=== PATIENT | female | born 1970 | race Caucasian/White ===

== ENCOUNTER 2016-10-30 10:18 | Emergency (ER) | payer BC, OTHER ==
[~2016-10-30] VITALS: Ht 162.6 cm; Wt 59.0 kg
[~2016-10-30 10:18] MED LIST: BCP; CLIN-62 PO; CPR500T PO; CYCL10TA9 PO; HYDR-3812 PO; HYDR1CAP2 PO; HYDR1TAB PO; IBUP-792 PO; LEVO500T69 PO; LVT.088T PO; NAPR-243 PO; NF-NOR777T; NITR-65 PO; OXYC-12 PO; PHEN200T27 PO; PRD20T PO; PRM25T PO; THYROID MED; TRAM-21 PO
--- OUTSIDE RECORDS SUMMARY | 2016-10-30 10:25 | XMS REPORT | Continuity of Care Document ---
Author Author [facility] Organization [facility] Address Unknown Phone Unavailable Care Team Providers Care Wiener Packer Name Role Phone [facility] PCP Insurance Providers Payer Name Policy Number Subscriber Name Relationship Unknown Advance Directives Directive Response Recorded Date/Time Advance Directives No 12/11/14 6:46pm Organ Donor No 12/11/14 6:46pm Resuscitation Status Full Code 12/11/14 6:46pm Problems Medical Problems Problem Onset Date Status Urinary tract infection Unknown Active Medications Medication Dose Route Sig Days/Qty Instructions Order Date Discontinued Date Status Ciprofloxacin 1 Tab PO TWICE A DAY 7 Days 11/10/09 01/22/10 Discontinued Acetaminophen/Hydrocodone Bitart 1 - 2 Each PO Q4HR PRN 20 Qty 01/22/10 Discontinued Promethazine HCl 1 Tab PO EVERY 6 HOURS 20 Qty 11/10/09 07/05/10 Discontinued Oxycodone Hcl/Acetaminophen 1 Each PO EVERY 4HRS 20 Qty 11/11/0907/05 Discontinued [Bcp] 01/22/10 07/05/10 Discontinued [Thyroid Med] 01/22/10 07/05/10 Discontinued Levothyroxine Sodium (Levothroid) 1 Each PO DAILY 07/05/10 Active Estradiol/Norethindr Acetate 07/05/10 12/11/14 Discontinued Clindamycin HCl 2 Each PO GIVE EVERY 6 HR ON SCHEDULE 07/05/1005/15 Discontinued Cyclobenzaprine HCl (Flexeril) 1 Each PO Q8HR PRN 15 Qty FOR MUSCLE SPASMS 05/15/12 12/11/14 Discontinued Naproxen 1 Each PO TID PRN 20 Qty 05/15/12 12/11/14 Discontinued Nitrofurantoin Macrocrystals 1 Each PO TWICE A DAY 20 Qty FOR INFECTION 05/15/12 12/11/14 Discontinued Levofloxacin 1 Each PO DAILY 10 Qty 12/11/14 Active Phenazopyridine HCl 1 Each PO THREE TIMES A DAY PRN BLADDER DISCOMFORT 15 Qty 12/11/14 Active Tramadol Hcl 50 Mg PO EVERY 4HRS 20 Qty 12/11/14 Active Social History Social History Problem Response Recorded Date/Time Alcohol Use Denies Use 12/11/2014 6:46pm Recreational Drug Use No 12/11/2014 6:46pm Recent Foreign Travel No 12/11/2014 6:46pm Recent Infectious Disease Exposure No 12/11/2014 6:46pm Hospitalization with Isolation Denies 12/11/2014 6:46pm Smoking Status Current Everyday Smoker 12/11/2014 6:46pm Query Response Start Date Stop Date Smoking Status Current Everyday Smoker Hospital Discharge Instructions No hospital discharge instructions. Plan of Care No plan of care. Functional Status No functional status results. Allergies, Adverse Reactions, Alerts Allergen Type Severity Reaction Status Last Updated tetracycline ([id number]) Allergy Mild Active 11/11/09 amoxicillin ([id number]) Allergy Unknown PALIPITATIONS Active 12/11/14 meperidine Allergy Mild Active 11/11/09 Immunizations No immunization records. Vital Signs Acute Vital Signs Vital Response Date/Time Temperature (Fahrenheit) 97.4 degrees F (97.6 - 99.5) Temperature (Calculated Celsius) 36.23774 degrees C (36.4 - 37.5) Temperature Source Tympanic Pulse Rate (adult) 87 bpm (60 - 90) Respiratory Rate 20 bpm (12 - 24) O2 Sat by Pulse Oximetry 100 % (88 - 100) Blood Pressure 97/78 mm Hg Pain Pain Intensity 10 Height (Feet) 5 feet Height (Inches) 4 inches Height (Calculated Centimeters) 162.030049 cm Weight (Pounds) 130 pounds Weight (Calculated Kilograms) 58.412590 kilograms Calculated BMI 22.31 Results Laboratory Results Test Name Result Units Flags Reference Collection Date/Time Result Date/ Time Comments Urine Color YELLOW 12/11/2014 6:55pm 12/11/2014 7:11pm Urine Clarity CLOUDY * 12/11/2014 6:55pm 12/11/2014 7:11pm Urine pH 6 5-9 12/11/2014 6:55pm 12/11/2014 7:11pm Urine Specific [place] 1.025 * 1.016-1.022 12/11/2014 6:55pm 2014 7:11pm Urine Protein NEGATIVE NEGATIVE 12/11/2014 6:55pm 12/11/2014 7:11pm Urine Glucose (UA) NEGATIVE NEGATIVE 12/11/2014 6:55pm 12/11/2014 7: 11pm Urine RBC (Auto) 1+ * NEGATIVE 12/11/2014 6:55pm 12/11/2014 7:11pm Urine Ketones NEGATIVE NEGATIVE 12/11/2014 6:55pm 12/11/2014 7:11pm Urine Nitrite POSITIVE * NEGATIVE 12/11/2014 6:55pm 12/11/2014 7:11pm Urine Bilirubin NEGATIVE NEGATIVE 12/11/2014 6:55pm 12/11/2014 7: 11pm Urine Urobilinogen NORMAL MG/DL NORMAL 12/11/2014 6:55pm 12/11/2014 7: 11pm Urine Leukocyte Esterase 2+ * NEGATIVE 12/11/2014 6:55pm 12/11/2014 7: 11pm Urine RBC NONE /HPF 12/11/2014 6:55pm 12/11/2014 7:11pm Urine WBC 5-10 /HPF * 12/11/2014 6:55pm 12/11/2014 7:11pm Urine Bacteria LARGE /HPF * 12/11/2014 6:55pm 12/11/2014 7:11pm Urine Squamous Epithelial Cells 5-10 /HPF 12/11/2014 6:55pm 2014 7:11pm Urine Crystals NONE /LPF 12/11/2014 6:55pm 12/11/2014 7:11pm Urine Casts NONE /LPF 12/11/2014 6:55pm 12/11/2014 7:11pm Urine Mucus NEGATIVE /LPF 12/11/2014 6:55pm 12/11/2014 7:11pm Urine Culture Indicated YES 12/11/2014 6:55pm 12/11/2014 7:11pm Procedures No known history of procedures. Encounters Encounter Location Date/Time Registered Emergency Room [facility] 12/11/14 5:52pm Recent Diagnosis
[2016-10-30] MEDS ORDERED: CHOLESTEROL MED (10:46)
[2016-10-30 11:07] LABS: BASOPHILS % (AUTO) 0 % (0-10); EOSINOPHILS # (AUTO) 0.1 10^3/uL (0.0-0.3); EOSINOPHILS % (AUTO) 1 % (0-10); LYMPHOCYTES # (AUTO) 1.5 X 10^3 (1.0-4.0); LYMPHOCYTES % (AUTO) 16 % (12-44); MEAN CORPUSCULAR HEMOGLOBIN 31 PG (25-34); MEAN CORPUSCULAR HGB CONC 34 G/DL (32-36); MEAN CORPUSCULAR VOLUME 91 FL (80-99); MEAN PLATELET VOLUME 9.7 FL (7.4-10.4); MONOCYTES # (AUTO) 0.7 X 10^3 (0.0-1.0); MONOCYTES % (AUTO) 8 % (0-12); NEUTROPHILS # (AUTO) 7.3 X 10^3 (1.8-7.8); NEUTROPHILS % (AUTO) 76 % (42-75); PLATELET COUNT 192 10^3/uL (130-400); RED BLOOD COUNT 5.07 10^6/uL (4.35-5.85); RED CELL DISTRIBUTION WIDTH 14.1 % (10.0-14.5); WHITE BLOOD COUNT 9.6 10^3/uL (4.3-11.0)
[2016-10-30 11:18] LABS: ALANINE AMINOTRANSFERASE 13 U/L (0-55); ALBUMIN 4.3 G/DL (3.2-4.5); ANION GAP 10 MMOL/L (5-14); ASPARTATE AMINO TRANSFERASE 15 U/L (5-34); BILIRUBIN,TOTAL 0.8 MG/DL (0.1-1.0); BLOOD UREA NITROGEN 15 MG/DL (7-18); BUN/CREATININE RATIO 16; CALCIUM 9.3 MG/DL (8.5-10.1); CARBON DIOXIDE 23 MMOL/L (21-32); CHLORIDE 108 MMOL/L (98-107); CREATININE SERUM 0.91 MG/DL (0.60-1.30); GFR ESTIMATED > 60; GLUCOSE 120 MG/DL (70-105); POTASSIUM 4.2 MMOL/L (3.6-5.0); SODIUM 141 MMOL/L (135-145); TOTAL PROTEIN 7.1 G/DL (6.4-8.2)
[2016-10-30 11:38] LABS: BILIRUBIN,URINE NEGATIVE (NEGATIVE); KETONES,URINE NEGATIVE (NEGATIVE); LEUKOCYTE ESTERASE ,URINE 2+ (NEGATIVE); NITRITE,URINE POSITIVE (NEGATIVE); PH,URINE 6 (5-9); PROTEIN,URINE 2+ (NEGATIVE); UROBILINOGEN,URINE NORMAL (NORMAL)
--- NOTE | 2016-10-30 12:46 | ED GU-Female ---
General Chief Complaint: Abdominal/GI Problems Stated Complaint: LOWER ABD PAIN Nursing Triage Note: C/O LLQ PAIN AT 6 ON NUMERIC SCALE. STATES IT HURTS WORSE WHEN HAVING A BM. FEELS NEED TO HAVE BM MORE OFTEN. DOES NOT C/O BURNING ON URINATION. PAIN STARTED THIS AM. WAS HOT ET COLD, WITH NAUSEA. Nursing Sepsis Screen: No Definite Risk Source: patient Exam Limitations: no limitations History of Present Illness Time seen by provider: 12:44 Initial Comments The patient is a 46-year-old white female who presents today with a complaint of left lower quadrant pain. She reports that she noted the pain when she awakened this morning. It was very sharp and severe. She has had perhaps as many as 10 kidney stones over the years. She stated that this did not seem to be quite like she remembered the stones in that she had a constant pressure sensation. She felt the need to urinate and after doing so then felt as if she were burning on the inside. She reports that the pain is much less at this time. Timing/Duration: this morning Severity/Quality: moderate Location: LLQ Radiation: left flank Associated Symptoms: other (diaphoresis) Allergies and Home Medications Allergies Coded Allergies: meperidine (Unverified Allergy, Mild, 11/11/09) tetracycline (Unverified Allergy, Mild, 11/11/09) amoxicillin (Unverified Allergy, Unknown, PALIPITATIONS, 12/11/14) Home Medications (Reported) Hydrocodone/Acetaminophen 1 Each Tablet #20 1 EACH PO 4 times a day Prescribed by: JENNIFER BABCOCK on 10/30/16 1430 Levothyroxine Sodium 88 Mcg Tablet 1 EACH PO DAILY (Reported) Constitutional: see HPI EENTM: no symptoms reported Cardiovascular: no symptoms reported Gastrointestinal: abdominal pain (LLQ) Genitourinary: see HPI Musculoskeletal: no symptoms reported Skin: no symptoms reported Psychiatric/Neurological: No Symptoms Reported Endocrine: No Symptoms Reported Hematologic/Lymphatic: No Symptoms Reported Past Kvhitea-Oqmshw-Ujoqte Hx Patient Social History Alcohol Use: Denies Use Recreational Drug Use: No Smoking Status: Current Everyday Smoker Recent Foreign Travel: No Contact w/Someone Who Travel: No Recent Infectious Disease Expo: No Recent Hopitalizations: No Physical Abuse Screen: No Sexual Abuse: No Seasonal Allergies Seasonal Allergies: Yes Surgeries HX Surgeries: Yes (KIDNEY STONE REMOVAL, D&C) Surgeries: Adenoidectomy, Renal, Tonsillectomy Respiratory Hx Respiratory Disorders: No Cardiovascular Hx Cardiac Disorders: No Neurological Hx Neurological Disorders: No Reproductive System Hx Reproductive Disorders: No DIRECTOR SOC[employer] WELFARE History: Menopausal Genitourinary Hx Genitourinary Disorders: Yes Genitourinary Disorders: Bladder Infection, Kidney Stones Gastrointestinal Hx Gastrointestinal Disorders: No Musculoskeletal Hx Musculoskeletal Disorders: No Endocrine Hx Endocrine Disorders: Yes Endocrine Disorders: Hypothyroidsim HEENT HX ENT Disorders: No Cancer Hx Cancer: No Psychosocial Hx Psychiatric Problems: No Blood Transfusions Hx Blood Disorders: No Family Medical History Significant Family History: No Pertinent Family Hx Physical Exam Vital Signs Vital Sign - Last 12Hours 10/30/16 10:39 Temp 97.3 Pulse 59 Resp 18 B/P 129/77 O2 Delivery Room Air Capillary Refill : Less Than 3 Seconds General Appearance: mild distress HEENT: normal ENT inspection Neck: full range of motion Cardiovascular: normal peripheral pulses regular rate, rhythm no edema no gallop no JVD no murmur Respiratory: chest non-tender lungs clear normal breath sounds no respiratory distress no accessory muscle use respiratory distress Gastrointestinal: normal bowel sounds non tender soft no organomegaly no pulsatile mass abnormal bowel sounds Back: CVA tenderness (L) Extremities: normal range of motion non-tender normal inspection no pedal edema no calf tenderness normal capillary refill pelvis stable 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 nml as tested no motor/sensory deficits alert normal mood/affect oriented x 3 Skin: normal color warm/dry cyanosis cool diaphoresis pallor Progress/Results/Core Measures Results/Orders Lab Results Laboratory Tests Test 10/30/16 10:55 10/30/16 11:30 Range/Units Alanine Aminotransferase (ALT/SGPT) 13 0-55 U/L Albumin 4.3 3.2-4.5 G/DL Alkaline Phosphatase 103 40-136 U/L Anion Gap 10 5-14 MMOL/L Aspartate Amino Transf (AST/SGOT) 15 5-34 U/L BUN/Creatinine Ratio 16 Basophils # (Auto) 0.0 0.0-0.1 10^3/uL Basophils (%) (Auto) 0 0-10 % Blood Urea Nitrogen 15 7-18 MG/DL Calcium Level 9.3 8.5-10.1 MG/DL Carbon Dioxide Level 23 21-32 MMOL/L Chloride Level 108 H 98-107 MMOL/L Creatinine 0.91 0.60-1.30 MG/DL Eosinophils # (Auto) 0.1 0.0-0.3 10^3/uL Eosinophils (%) (Auto) 1 0-10 % Estimat Glomerular Filtration Rate > 60 Glucose Level 120 H 70-105 MG/DL Hematocrit 46 35-52 % Hemoglobin 15.6 11.5-16.0 G/DL Lymphocytes # (Auto) 1.5 1.0-4.0 X 10^3 Lymphocytes (%) (Auto) 16 12-44 % Mean Corpuscular Hemoglobin 31 25-34 PG Mean Corpuscular Hemoglobin Concent 34 32-36 G/DL Mean Corpuscular Volume 91 80-99 FL Mean Platelet Volume 9.7 7.4-10.4 FL Monocytes # (Auto) 0.7 0.0-1.0 X 10^3 Monocytes (%) (Auto) 8 0-12 % Neutrophils # (Auto) 7.3 1.8-7.8 X 10^3 Neutrophils (%) (Auto) 76 H 42-75 % Platelet Count 192 130-400 10^3/uL Potassium Level 4.2 3.6-5.0 MMOL/L Red Blood Count 5.07 4.35-5.85 10^6/uL Red Cell Distribution Width 14.1 10.0-14.5 % Sodium Level 141 135-145 MMOL/L Total Bilirubin 0.8 0.1-1.0 MG/DL Total Protein 7.1 6.4-8.2 G/DL White Blood Count 9.6 4.3-11.0 10^3/uL Urine Bacteria MODERATE H /HPF Urine Bilirubin NEGATIVE NEGATIVE Urine Casts NONE /LPF Urine Clarity VERY CLOUDY H Urine Color NAHID H Urine Crystals NONE /LPF Urine Culture Indicated YES Urine Glucose (UA) NEGATIVE NEGATIVE Urine Ketones NEGATIVE NEGATIVE Urine Leukocyte Esterase 2+ H NEGATIVE Urine Mucus NEGATIVE /LPF Urine Nitrite POSITIVE H NEGATIVE Urine Protein 2+ H NEGATIVE Urine RBC >100 H /HPF Urine RBC (Auto) 5+ H NEGATIVE Urine Specific [place] 1.020 1.016-1.022 Urine Squamous Epithelial Cells 5-10 /HPF Urine Urobilinogen NORMAL NORMAL MG/DL Urine WBC 2-5 /HPF Urine pH 6 5-9 My Orders Orders-JENNIFER BABCOCK MD Cbc With Automated Diff (10/30/16 10:57) Comprehensive Metabolic Panel (10/30/16 10:57) Ua Culture If Indicated (10/30/16 10:57) Urine Culture (10/30/16 11:30) Ct Abd/Pelvis Wo(Kidney Stone) (10/30/16 12:43) Abdomen/Kub 1view (10/30/16 13:31) Vital Signs/I&O Vital Sign - Last 12Hours 10/30/16 10:39 Temp 97.3 Pulse 59 Resp 18 B/P 129/77 O2 Delivery Room Air Blood Pressure Mean: 94 Departure Communication Progress Notes 1322 CT scan shows 2 distal left ureteral stones at the UV junction Impression Impression: Primary Impression: Ureterolithiasis Disposition: HOME, SELF-CARE Condition: Stable/Unchanged Departure-Patient Inst. Decision time for Depature: 13:20 Referrals: [facility] (PCP/Family) Primary Care Physician Patient Instructions: Kidney Stones in Adults Add. Discharge Instructions: All discharge instructions reviewed with patient and/or family. Voiced understanding. Lots of liquids Strain all urine Hydrocodone for pain See Dr. De Anda in follow-up for stone at 1300 hours on Friday 11/03 Scripts Hydrocodone/Acetaminophen (Lortab 10-325 mg Tablet)1 Each Tablet1 Each PO 4 times a day #20 TAB Prov:JENNIFER BABCOCK MD 10/30/16 JENNIFER BABCOCK MD Oct 30, 2016 12:46
--- NOTE | 2016-10-30 13:19 | Diagnostic Imaging Report ---
PROCEDURE: CT urinary tract, rule out kidney stone. TECHNIQUE: Multiple contiguous axial images were obtained through the abdomen and pelvis without the use of intravenous contrast. INDICATION: Hematuria. Left lower quadrant pain. Rule out stones. FINDINGS: The lung bases demonstrate scattered calcified granulomas. The liver, the gallbladder, the spleen, the adrenals, and the pancreas appear unremarkable for an unenhanced exam. The kidneys demonstrate no hydronephrosis. There is minimal dilatation of the left ureter and surrounding stranding seen. There are two adjacent stones at the distal aspect of the ureter near the UVJ up to 4 mm in size. There is no bladder or left ureteric stone. The abdominal aorta is normal in caliber. No para-aortic significantly enlarged lymph node is seen. There is no bowel obstruction. There is no significant free fluid or fluid collection in the abdomen or pelvis. The uterus appears unremarkable. The osseous structures appear grossly unremarkable. IMPRESSION: There are two stones up to 4 mm in size at the distal left ureter just proximal to the UVJ. There is only minimal dilatation of the left ureter with no hydronephrosis. Dictated by: Dictated on workstation # [id number]
--- NOTE | 2016-10-30 13:51 | Diagnostic Imaging Report ---
INDICATION: Left-sided abdominal pain, hematuria since this morning. History of kidney stones. FINDINGS: Supine view of the abdomen and pelvis demonstrates no visible renal calculi. There is normal bowel gas pattern. Osseous structures appear normal. IMPRESSION: Negative KUB. Dictated by: Dictated on workstation # [id number]
[2016-10-30] MEDS ORDERED: HYDR-3731 PO (14:30)
[2016-10-30 14:37] VITALS: BP 133/102
== END 2016-10-30 14:37 | disposition home or self-care (01) ==
LOC: EDUNIT# 10:18 → ER 10:20
DX: N20.1 Calculus of ureter (principal); F17.210 Nicotine dependence, cigarettes, uncomplicated
CPT/HCPCS: 36415; 74000; 74176; 80053; 81000; 85025; 87088; 87186

== ENCOUNTER → 2017-06-16 | Outpatient (CLI) | payer OTHER ==
[~2017-06-16] MED LIST changes: +CHOLESTEROL MED; +HYDR-3731 PO
--- NOTE | 2017-06-18 08:15 | Diagnostic Imaging Report ---
INDICATION: Digital mammogram bilateral screening. This study was compared to prior exams of 03/17/13 and 02/06/12. At this time, there are no current complaints. The current study was also evaluated with a Computer Aided Detection (CAD) system. FINDINGS: The fibroglandular tissue in both breasts is dense. This does limit the sensitivity of this exam. Overall, there does not appear to have been any significant change when compared to the prior study. No primary or secondary sign of malignancy is noted. IMPRESSION: 1. There is no radiographic evidence for malignancy. 2. The patient should have her annual bilateral screening mammogram on schedule in June of 2018. ACR BI-RADS Category 1: Negative. Result letter will be mailed to the patient. Note: At least 10% of breast cancer is not imaged by mammography. Dictated by: Dictated on workstation # [id number]
== END ==
LOC: RAD 13:12
PROVIDERS: ATTEND Nurse Practitioner Family
DX: Z12.31 Encounter for screening mammogram for malignant neoplasm of breast (principal)
CPT/HCPCS: 77067

== ENCOUNTER 2019-02-11 13:44 | Emergency (ER) | payer SELFPAY ==
[~2019-02-11] VITALS: Ht 162.6 cm; Wt 62.1 kg
[~2019-02-11 13:44] MED LIST changes: +ACHD5005 PO; -HYDR-3812 PO
--- OUTSIDE RECORDS SUMMARY | 2019-02-11 13:50 | XMS REPORT ---
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 Name Role Phone Migration, Doctor Unavailable Unavailable PROBLEMS Type Condition ICD9-CM Code [id number] Code Onset Dates Condition Status SNOMED Code Problem Cigarette nicotine dependence without complication F17.210 Active 97355996 Problem Allergic rhinitis, unspecified seasonality, unspecified trigger J30.9 Active 40191374 Problem Acquired hypothyroidism E03.9 Active 262032297 Problem Hyperlipidemia, unspecified hyperlipidemia type E78.5 Active 94223609 ALLERGIES No Information ENCOUNTERS Encounter Location Date Diagnosis [place] [address] [address] Dec, Acquired hypothyroidism E03.9 [place] [address] [address] Dec, Acquired hypothyroidism E03.9 and Hyperlipidemia, unspecified hyperlipidemia type E78.5 [facility] [address] [address] Sep, Acquired hypothyroidism E03.9 [facility] [address] [address] Sep, Acquired hypothyroidism E03.9 [facility] [address] [address] Sep, Viral upper respiratory tract infection J06.9 and Allergic rhinitis, unspecified seasonality, unspecified trigger J30.9 [facility] [address] [address] Sep, [facility] [address] [address] Aug, Acute frontal sinusitis, recurrence not specified J01.10 [place] [address] [address] Jul, [facility] [address] [place] [id number] [place] [address] Jul, Acute cystitis without hematuria N30.00 and Burning with urination R30.0 [facility] [id number] [place] [address]- [address] Jun, Acquired hypothyroidism E03.9 and Hyperlipidemia, unspecified hyperlipidemia type E78.5 [facility] [address] [place] [id number] [place] [address]76- 2405 Jun, Acquired hypothyroidism E03.9 ; Hyperlipidemia, unspecified hyperlipidemia type E78.5 and Cigarette nicotine dependence without complication F17.210 [facility] [address] [place] [id number] [place] [address]- 1088 Jun, Acquired hypothyroidism E03.9 [facility] [address] [place] [id number] [place] [address]- [address] February, Acquired hypothyroidism E03.9 [facility] [address] [place] [id number] [place] [address]- 9890 Nov, Acquired hypothyroidism E03.9 [facility] [address] [place] [id number] [place] [address]- 228[address] 14 Aug, 2017 Acute non-recurrent frontal sinusitis J01.10 [facility] [address] [place] [id number] [place] [address] 25634- 7[address] 07 Aug, 2017 [facility] [address] [place] [id number] [place] [address] 36220- 9936 07 Aug, 2017 Acute rhinosinusitis J01.90 [facility] [address] [place] [id number] [place] [address] 22883- 0410 04 Aug, 2017 [facility] [address] [place] [id number] [place] [address] 11875- 1631 Jul, Acquired hypothyroidism E03.9 [facility] [address] [place] [id number] [place] [address] 67[address]- 9[address] Jun, [facility] [id number] [place] [address] 82007- 35[address] May, Screening breast examination Z12.31 ; Skin tag L91.8 and Routine gynecological examination Z01.419 [place] [address] [place] [id number] [place] [address] 25760- 86[address] May, Hyperlipidemia, unspecified hyperlipidemia type E78.5 ; Acquired hypothyroidism E03.9 and Skin tag L91.8 [place] [address] [place] [id number] [place] [address] 6[address]38- 1460 Mar, [place] [address] [address] Mar, [facility] [place] [address] [place] [id number] [place] [address] February, Dysuria R30.0 and Acute cystitis with hematuria N30.01 [place] [address] [place] [id number] [place] [address] 17466- 3541 Oct, [place] [address] [place] [id number] [place] [address] 80035- 9[address] Sep, Hyperlipidemia, unspecified hyperlipidemia type E78.5 [place] [address] [place] [id number] [place] [address] 64004- 2068 Aug, Acquired hypothyroidism E03.9 and General medical exam Z00.00 [place] [address] [place] [id number] [place] [address] 20912- 1361 Aug, [place] [address] [place] [id number] [place] [address] 91153- 6768 Aug, [facility] [address] [place] [id number] [place] [address] Dec, Allergic rhinitis J30.9 [place] [address] [place] [id number] [place] [address] 18647- 978[address] Dec, [place] [address] [place] [id number] [place] [address] [place] [address] Dec, Acute non-recurrent maxillary sinusitis J01.00 [facility] [address] [address] Jul, Other specified hypothyroidism E03.8 [facility] [address] [address] February, [facility] [address] [place] [id number] [place] [address] 35610- 65[address] February, Absence of menstruation 626.0 [facility] [address] [address] Jan, [facility] [address] [place] [id number] [place] [address] 92495- 4483 Jan, [facility] [id number] [place] [address] 16031- 2724 Dec, [facility] [address] [address] Dec, [facility] [address] [address] Aug, [facility] [address] [address] Aug, [facility] [address] [address]- [address] Jul, [facility] [id number] [address] Jul, [facility] [address] [address]- [address] Jun, [facility] [address] [address] Jun, [facility] [address] [address]- [address] Jun, [facility] [id number] [address]- [address] 05 Jun, 2014 [facility] [address] [id number] [place] [address]- 67[address] Jun, [facility] [address] [id number] [place] [address]- 4552 May, [facility] [address] [id number] [place] [address]- 2987 May, [facility] [address] [id number] [place] [address]- 5468 Oct, [facility] [address] [id number] [place] [address]- 2711 Oct, [facility] [address] [id number] [place] [address]- 8490 Oct, [facility] [address] [id number] [place] [address]- 4366 Oct, [facility] [address] [id number] [place] [address]- 4972 Oct, [facility] [address] [id number] [place] [address]- [address] Oct, [facility] [address] [id number] [place] [address]- 7788 Oct, [facility] [place] [facility] [address] [id number] [place] [address]- 5337 Oct, [facility] [address] [id number] [place] [address]- 6308 Oct, [facility] [place] [facility] [address] [id number] [place] [address]- 5554 Oct, [facility] [place] [facility] [address] [id number] [place] [address]- 4203 Oct, [facility] [place] [facility] [address] [id number] [place] [address]- 2410 Oct, [facility] [address] [id number] [place] [address]- 5931 Sep, [facility] [place] [facility] [address] [id number] [place] [address]- 5216 Sep, [facility] [place] [facility] [address] [id number] [place] [address]- 2556 Apr, [facility] [place] [facility] [address] [id number] [place] [address]- 7896 Mar, [facility] [place] [facility] [address] [id number] [place] [address]- 5261 Mar, [facility] [place] [facility] [address] [id number] [place] [address]- 0546 Mar, [facility] [place] [facility] [address] [id number] [place] [address]- 3016 February, [facility] [address] [id number] [place] [address]- 0476 Oct, [facility] [place] [facility] [address] [id number] [place] [address]- 5447 Oct, [facility] [place] [facility] [address] [id number] [place] [address]- 4336 Oct, [facility] [place] [facility] [address] [id number] [place] [address]- 0806 Oct, [facility] [place] [facility] [address] [id number] [address]- 9376 Sep, [facility] [place] [facility] [address] [id number] [place] [address]- 0986 Sep, [facility] [place] [facility] [address] [id number] [place] [address]- 9156 May, [facility] [place] [facility] [address] [id number] [place] [address]- 3526 May, [facility] [place] [facility] [address] [id number] [place] [address]- 8096 May, [facility] [place] [facility] [address] [id number] [place] [address]- 5474 May, [facility] [place] [facility] [address] [id number] [place] [address]- 7742 May, [facility] [place] [facility] [address] [facility] [id number] [place] [address]- 2404 May, [facility] [place] [facility] [address] [id number] [place] [address]- 3421 Apr, [facility] [place] [facility] [address] [id number] [place] [address]- 6379 Apr, [facility] [place] [facility] [address] [facility] [id number] [place] [address]- 2792 Mar, [facility] [place] [facility] [address] [place] [id number] [place] [address]- 1134 Mar, [facility] [place] [facility] [address] [facility] [id number] [place] [address]- 8035 February, [facility] [place] [facility] [address] [place] [id number] [place] [address]- 6903 February, [facility] [place] [facility] [address] [place] [id number] [place] [address]- 8193 Nov, [facility] [place] [facility] [address] [place] [id number] [place] [address]- 3566 Nov, [facility] [place] [facility] [address] [facility] [id number] [place] [address]- 5546 17 Nov, 2011 [facility] [place] [facility] [address] [id number] [place] [address]- 2561 14 Nov, 2011 [facility] [place] [facility] [address] [facility] [id number] [place] [address]- 5491 10 Nov, 2011 [facility] [place] [facility] [address] [place] [id number] [place] [address]- 9222 Jul, [facility] [address] [facility] [id number], [place] [address]- 7634 12 Nov, 2010 [facility] [address], [place] [address]- 2929 15 Sep, 2010 [facility] [address], [place] [address]- 5700 10 Sep, 2010 [facility] [address], [place] [address]- 2665 13 Jul, 2010 [facility] [address], [place] [address]- 1051 16 Dec, 2009 [facility] [address], [place] [address]- 0279 17 Aug, 2009 [facility] [address], [place] [address]- 5325 Aug, [facility] [address], [place] [address]- 9257 Aug, [facility] [address], [place] [address]- 7584 Jul, [facility] [address] [place] [id number], [place] [address]- 0407 14 Apr, 2009 IMMUNIZATIONS No Known Immunizations SOCIAL HISTORY Never Assessed REASON FOR VISIT EMR-[place] PLAN OF CARE VITAL SIGNS MEDICATIONS Unknown Medications RESULTS No Results PROCEDURES No Known procedures INSTRUCTIONS MEDICATIONS ADMINISTERED No Known Medications MEDICAL (GENERAL) HISTORY Type Description Date Medical History Hypothyroidism Dx at [facility] was born without a thyroid Medical History 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
--- OUTSIDE RECORDS SUMMARY | 2019-02-11 13:51 | XMS REPORT ---
Author Author Migration, Doctor Organization [facility] Address Unknown Phone Unavailable Care Team Providers Care Leaf Tier Name Role Phone Migration, Doctor Unavailable Unavailable PROBLEMS Type Condition ICD9-CM Code QBX57-PU Code Onset Dates Condition Status SNOMED Code Problem Cigarette nicotine dependence without complication F17.210 Active 58090274 Problem Allergic rhinitis, unspecified seasonality, unspecified trigger J30.9 Active 97707812 Problem Acquired hypothyroidism E03.9 Active 002214974 Problem Hyperlipidemia, unspecified hyperlipidemia type E78.5 Active 88702940 ALLERGIES No Information ENCOUNTERS Encounter Location Date Diagnosis [place] [address] [address] Sep, Acquired hypothyroidism E03.9 [facility] [address] [address] Sep, Acquired hypothyroidism E03.9 [facility] [address] [address] Sep, Viral upper respiratory tract infection J06.9 and Allergic rhinitis, unspecified seasonality, unspecified trigger J30.9 [facility] [address] [place] [id number] [place] [address] Sep, [facility] [address] [address] Aug, Acute frontal sinusitis, recurrence not specified J01.10 [place] [address] [address] Jul, [place] [address] [address] Jul, Acute cystitis without hematuria N30.00 and Burning with urination R30.0 [facility] [address] [address] Jun, Acquired hypothyroidism E03.9 and Hyperlipidemia, unspecified hyperlipidemia type E78.5 [facility] [address] [place] [id number] [place] [address]- [address] Jun, Acquired hypothyroidism E03.9 ; Hyperlipidemia, unspecified hyperlipidemia type E78.5 and Cigarette nicotine dependence without complication F17.210 [facility] [address] [place] [id number] [place] [address]- [address] Jun, Acquired hypothyroidism E03.9 [facility] [address] [place] [id number] [place] [address]- [address] February, Acquired hypothyroidism E03.9 [facility] [address] [place] [id number] [place] [address]- [address] Nov, Acquired hypothyroidism E03.9 [facility] [address] [place] [id number] [place] [address]- [address] Aug, Acute non-recurrent frontal sinusitis J01.10 [facility] [address] [place] [id number] [place] [address]- [address] Aug, [facility] [address] [address] Aug, Acute rhinosinusitis J01.90 [facility] [address] [place] [id number] [place] [address]- [address] Aug, [facility] [address] [place] [id number] [place] [address]- [address] Jul, Acquired hypothyroidism E03.9 [facility] [address] [place] [id number] [place] [address]- [address]98 Jun, [facility] [address] [place] [id number] [place] [address]- [address] May, Screening breast examination Z12.31 ; Skin tag L91.8 and Routine gynecological examination Z01.419 [facility] [address] [place] [id number] [place] [address] 8[address]- [address] May, Hyperlipidemia, unspecified hyperlipidemia type E78.5 ; Acquired hypothyroidism E03.9 and Skin tag L91.8 [facility] [address] [address] Mar, [facility] [address] [place] [id number] [place] [address]- [address] Mar, [facility] [address] [address] February, Dysuria R30.0 and Acute cystitis with hematuria N30.01 [facility] [address] [address]- [address] Oct, [facility] [address] [address] Sep, Hyperlipidemia, unspecified hyperlipidemia type E78.5 [facility] [address] [address] Aug, Acquired hypothyroidism E03.9 and General medical exam Z00.00 [facility] [address] [address] Aug, [facility] [address] [address]- [address] Aug, [facility] [address] [place] [id number] [place] [address] Dec, Allergic rhinitis J30.9 [facility] [address] [place] [id number] [place] [address] 10051- 2464 Dec, [facility] [address] [place] [id number] [place] [address]2386- [address] 15 Dec, 2015 Acute non-recurrent maxillary sinusitis J01.00 [facility] [address] [place] [id number] [place] [address]67- [address] 08 Jul, 2015 Other specified hypothyroidism E03.8 [facility] [address] [address]- [address]698 February, [facility] [address] [id number] [place] [address] February, Absence of menstruation 626.0 [facility] [place] [facility] [address] [id number] [place] [address] Jan, [facility] [address] [id number] [place] [address] Jan, [facility] [place] [facility] [address] [id number] [place] [address] Dec, [facility] [place] [facility] [address] [id number] [place] [address] Dec, [facility] [place] [facility] [address] [facility] [id number] [place] [address]- 8058 Aug, [facility] [place] [facility] [address] [facility] [id number] [place] [address]- 3123 Aug, [facility] [place] [facility] [address] [facility] [id number] [place] [address]- 1097 Jul, [facility] [place] [facility] [address] [facility] [id number] [place] [address]- 2258 Jul, [facility] [place] [facility] [address] [facility] [id number] [place] [address]- 5194 Jun, [facility] [place] [facility] [address] [facility] [id number] [place] [address]- 9952 Jun, [facility] [place] [facility] [address] [id number] [place] [address]- 7786 08 Jun, 2014 [facility] [place] [facility] [address] [id number] [place] [address] Jun, [facility] [place] [facility] [address] [facility] [id number] [place] [address]- 1892 05 Jun, 2014 [facility] [place] [facility] [address] [facility] [id number] [address] May, [facility] [place] [facility] [address] [id number] [place] [address]- 7964 May, [facility] [address] [id number] [place] [address]- 1067 Oct, [facility] [place] [facility] [address] [id number] [place] [address]- 2866 Oct, [facility] [place] [facility] [address] [id number] [place] [address]- 9160 Oct, [facility] [address] [id number] [place] [address]- 2029 Oct, [facility] [place] [facility] [address] [id number] [place] [address]- 1856 Oct, [facility] [place] [facility] [address] [id number] [place] [address]- 6078 Oct, [facility] [address] [id number] [place] [address]- 5083 Oct, [facility] [place] [facility] [address] [id number] [place] [address]- 2006 Oct, [facility] [place] [facility] [address] [id number] [place] [address]- 2506 Oct, [facility] [place] [facility] [address] [id number] [place] [address]- 8704 Oct, [facility] [place] [facility] [address] [id number] [place] [address]- 4833 Oct, [facility] [place] [facility] [address] [id number] [place] [address]- 0997 Oct, [facility] [place] [facility] [address] [id number] [place] [address]- 4623 Sep, [facility] [place] [facility] [address] [id number] [place] [address]- 8754 13 Sep, 2013 [facility] [place] [facility] [address] [id number] [place] [address]- 9935 Apr, [facility] [place] [facility] [address] [id number] [place] [address]- 4008 Mar, [facility] [place] [facility] [address] [id number] [place] [address]- 8312 Mar, [facility] [place] [facility] [address] [id number] [place] [address]- 1879 Mar, [facility] [place] [facility] [address] [id number] [place] [address]- 8264 February, [facility] [place] [facility] [address] [id number] [place] [address]- 7124 Oct, [facility] [place] [facility] [address] [id number] [place] [address]- 6677 Oct, [facility] [place] [facility] [address] [id number] [place] [address]- 3458 Oct, [facility] [place] [facility] [address] [id number] [place] [address]- 1170 Oct, [facility] [place] [facility] [address] [id number] [place] [address]- 7914 Sep, [facility] [place] [facility] [address] [id number] [place] [address]- 4973 Sep, [facility] [place] [facility] [address] [id number] [place] [address]- 2657 May, [facility] [place] [facility] [address] [id number] [place] [address]- 2022 May, [facility] [place] [facility] [address] [id number] [place] [address]- 1167 May, [facility] [place] [facility] [address] [id number] [place] [address]- 5714 May, [facility] [place] [facility] [address] [id number] [place] [address]- 0401 May, [facility] [place] [facility] [address] [id number] [place] [address]- 5487 May, [facility] [address] [id number] [place] [address]- 8385 Apr, [facility] [place] [facility] [address] [id number] [place] [address]- 5386 Apr, [facility] [address] [id number] [place] [address]- 2759 Mar, [facility] [place] [facility] [address] [id number] [place] [address]- 0083 Mar, [facility] [place] [facility] [id number] [place] [address], [place] [address]- 3476 February, [facility] [place] [facility] [address] [facility] [id number] [place] [address]- 8676 February, [facility] [place] [facility] [id number] [place] [address], [place] [address]- 3567 Nov, [facility] [address] [id number] [place] [address]- 8543 Nov, [facility] [place] [facility] [id number] [address]- 0729 Nov, [facility] [address] [place] [id number] [address]- [address] 14 Nov, 2011 [facility] [place] [facility] [address] [facility] [id number] [place] [address]- 4171 Nov, [facility] [place] [facility] [address] [id number] [place] [address]- 2478 Jul, [facility] [place] [facility] [address] [id number] [place] [address]- 7490 Nov, [facility] [place] [facility] [address] [facility] [id number] [place] [address]- 3186 Sep, [facility] [place] [facility] [address] [id number] [place] [address]- 4859 10 Sep, 2010 [facility] [address] [place] [id number] [address]- 9236 13 Jul, 2010 [facility] [address] [place] [id number] [address]- 2546 16 Dec, 2009 [facility] [address] [place] [id number] [address]- 2546 17 Aug, 2009 [facility] [id number] [address]- 2546 Aug, [facility] [address] [place] [id number] [address] 2541 Aug, [facility] [address] [place] [id number] [address]- 5466 28 Jul, 2009 [facility] [address] [place] [id number] [address]- 2632 Apr, IMMUNIZATIONS No Known Immunizations SOCIAL HISTORY Never Assessed REASON FOR VISIT 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
--- OUTSIDE RECORDS SUMMARY | 2019-02-11 13:51 | XMS REPORT ---
Author Author DIANE RIVERA [facility] Address [address] [place] [address] Care Team Providers Care Online Tutor Name Role Phone DIANE RIVERA Unavailable PROBLEMS Type Condition ICD9-CM Code [id number] Code Onset Dates Condition Status SNOMED Code Problem Allergic rhinitis, unspecified seasonality, unspecified trigger J30.9 Active 86611875 Problem Cigarette nicotine dependence without complication F17.210 Active 95136041 Problem Hyperlipidemia, unspecified hyperlipidemia type E78.5 Active 78003016 Problem Acquired hypothyroidism E03.9 Active [id number] ALLERGIES No Information ENCOUNTERS Encounter Location Date Diagnosis [facility] [place] [address] [address] Sep, Acquired hypothyroidism E03.9 [facility] [place] [address] [address] Sep, Acquired hypothyroidism E03.9 [facility] [id number] [place] [address] Sep, Viral upper respiratory tract infection J06.9 and Allergic rhinitis, unspecified seasonality, unspecified trigger J30.9 [facility] [place] [id number] [place] [address]- [address] Sep, [facility] [place] [address] [address] Aug, Acute frontal sinusitis, recurrence not specified J01.10 [facility] [place] [address] [address] Jul, [facility] [place] [address] [address] Jul, Acute cystitis without hematuria N30.00 and Burning with urination R30.0 [facility] [place] [id number] [place] [address]366- 68[address] 25 Jun, 2018 Acquired hypothyroidism E03.9 and Hyperlipidemia, unspecified hyperlipidemia type E78.5 [facility] [place] [id number] [place] [address]107- 3979 19 Jun, 2018 Acquired hypothyroidism E03.9 ; Hyperlipidemia, unspecified hyperlipidemia type E78.5 and Cigarette nicotine dependence without complication F17.210 [facility] [place] [address] [address] 17 Jun, 2018 Acquired hypothyroidism E03.9 [facility] [place] [address] [address] February, Acquired hypothyroidism E03.9 [facility] [place] [id number] [place] [address]18- 8122 16 Nov, 2017 Acquired hypothyroidism E03.9 [facility] [place] [id number] [place] [address] 8[address]30- 7491 14 Aug, 2017 Acute non-recurrent frontal sinusitis J01.10 [place] [facility] [id number] [place] [address]- 3911 07 Aug, 2017 [facility] [place] [id number] [place] [address] 34188- 1429 07 Aug, 2017 Acute rhinosinusitis J01.90 [facility] [place] [id number] [place] [address] 23004- 9431 04 Aug, 2017 [facility] [place] [id number] [place] [address] 65678- 1869 Jul, Acquired hypothyroidism E03.9 [facility] [place] [id number] [place] [address] 24894- 5251 08 Jun, 2017 [facility] [place] [id number] [place] [address] 6[address]39- 0599 May, Screening breast examination Z12.31 ; Skin tag L91.8 and Routine gynecological examination Z01.419 [facility] [place] [id number] [place] [address]01- 4821 May, Hyperlipidemia, unspecified hyperlipidemia type E78.5 ; Acquired hypothyroidism E03.9 and Skin tag L91.8 [facility] [place] [id number] [place] [address] 98440- 2508 Mar, [facility] [place] [address] [address]- [address] Mar, [facility] [address] [address] February, Dysuria R30.0 and Acute cystitis with hematuria N30.01 [place] [id number] [place] [address] 95779- 5689 Oct, [facility] [place] [id number] [place] [address] 6[address]61- 4422 Sep, Hyperlipidemia, unspecified hyperlipidemia type E78.5 [place] [id number] [place] [address]34- 9681 Aug, Acquired hypothyroidism E03.9 and General medical exam Z00.00 [place] [id number] [place] [address] 97842- 3831 Aug, [facility] [place] [id number] [place] [address]21- 9076 Aug, [facility] [id number] [place] [address] Dec, Allergic rhinitis J30.9 [facility] [place] [id number] [place] [address]99- 1400 17 Dec, 2015 [place] [id number] [place] [address] 26135- 1717 15 Dec, 2015 Acute non-recurrent maxillary sinusitis J01.00 [place] [id number] [place] [address] 00387- 8013 08 Jul, 2015 Other specified hypothyroidism E03.8 [facility] [address] [id number] [address] February, [facility] [address] [id number] [address] February, Absence of menstruation 626.0 [facility] [id number] [place] [address] Jan, [facility] [place] [facility] [address] [id number] [address]- 3869 Jan, [facility] [id number] [place] [address]- 1514 Dec, [facility] [place] [facility] [address] [id number] [address]- [address] Dec, [facility] [address] [address]- 24[address] Aug, [facility] [place] [facility] [address] [address]- 8540 Aug, [facility] [place] [facility] [address] [address]- 97[address] Jul, [facility] [place] [facility] [address] [address]- 5047 Jul, [facility] [place] [facility] [address], [place] [address]- 55[address] Jun, [facility] [place] [facility] [id number] [address]- 6646 Jun, [facility] [place] [facility] [address] [facility] [id number], [place] [address]- 2544 Jun, [facility] [place] [facility] [id number] [address]- 8228 Jun, [facility] [place] [facility] [id number] [address]- 2548 Jun, [facility] [place] [facility] [address] [id number] [place] [address]- 4561 May, [facility] [address] [id number] [place] [address]- 8958 May, [facility] [place] [facility] [address] [id number] [place] [address]- 0360 Oct, [facility] [address] [id number] [place] [address]- 5640 Oct, [facility] [address] [id number] [place] [address]- 6939 Oct, [facility] [address] [id number] [place] [address]- 9768 Oct, [facility] [address] [id number] [place] [address]- 2484 Oct, [facility] [address] [id number] [place] [address]- 4371 Oct, [facility] [address] [id number] [place] [address]- 3258 Oct, [facility] [address] [id number] [place] [address]- 4897 Oct, [facility] [address] [id number] [place] [address]- 4734 Oct, [facility] [address] [id number] [place] [address]- 9558 Oct, [facility] [address] [id number] [place] [address]- 5951 Oct, [facility] [place] [facility] [address] [id number] [place] 5468 Oct, [facility] [address] [id number] [place] [address]- 2686 Sep, [facility] [address] [id number] [place] [address]- 6258 Sep, [facility] [place] [facility] [address] [id number] [place] [address]- 6036 Apr, [facility] [place] [facility] [address] [id number] [place] [address]- 9547 Mar, [facility] [place] [facility] [address] [id number] [place] [address]- 5551 Mar, [facility] [place] [facility] [address] [id number] [place] [address]- 8953 Mar, [facility] [place] [facility] [address] [id number] [place] [address]- 3557 February, [facility] [place] [facility] [address] [id number] [place] [address]- 0846 Oct, [facility] [place] [facility] [address] [id number] [place] [address]- 0665 Oct, [facility] [place] [facility] [address] [id number] [place] [address]- 8526 Oct, [facility] [place] [facility] [address] [id number] [place] [address]- 3420 Oct, [facility] [place] [facility] [address] [id number] [place] [address]- 2587 Sep, [facility] [place] [facility] [address] [id number] [place] [address]- 4072 Sep, [facility] [place] [facility] [address] [id number] [place] [address]- 7465 May, [facility] [place] [facility] [address] [id number] [place] [address]- 3728 May, [facility] [place] [facility] [address] [id number] [place] [address]- 4106 May, [facility] [place] [facility] [address] [id number] [place] [address]- 9390 May, [facility] [place] [facility] [address] [id number] [place] [address]- 9144 May, [facility] [address] [id number] [place] [address]- 4737 May, [facility] [place] [facility] [address] [id number] [place] [address]- 1301 Apr, [facility] [place] [facility] [address] [id number] [place] [address]- 0996 Apr, [facility] [place] [facility] [address] [id number] [place] [address]- 1210 Mar, [facility] [place] [facility] [id number] [place] [address], [place] [address]- 5866 Mar, [facility] [place] [facility] [address] [id number] [place] [address]- 8716 February, [facility] [id number] [address]- 7186 February, [facility] [place] [facility] [address] [id number] [place] [address]- 0018 Nov, [facility] [place] [facility] [id number] [place] [address]- 2832 Nov, [facility] [place] [facility] [id number] [address]- 0666 17 Nov, 2011 [facility] [place] [facility] [id number] [address]- 3886 14 Nov, 2011 [facility] [place] [facility] [address] [facility] [id number] [place] [address]- 9262 10 Nov, 2011 [facility] [place] [facility] [id number] [place] [address]- 7806 Jul, [facility] [place] [facility] [address] [facility] [id number] [place] [address]- 2546 12 Nov, 2010 [facility] [place] [facility] [id number] [address]- 2018 15 Sep, 2010 [facility] [place] [id number] [address]- [address]46 10 Sep, 2010 [facility] [place] [id number] [address]- 2546 13 Jul, 2010 [facility] [place] [address], [place] [address]- 2546 16 Dec, 2009 [facility] [place] [address], [place] [address]- 2546 17 Aug, 2009 [facility] [place] [address], [place] [address]- 2546 Aug, [facility] [place] [address], [place] [address]- 2546 Aug, [facility] [place] [address], [place] [address]- 2546 Jul, [facility] [place] [id number] [address]- 2546 Apr, IMMUNIZATIONS No Known Immunizations SOCIAL HISTORY Never Assessed REASON FOR VISIT Deferred Lab PLAN OF CARE VITAL SIGNS MEDICATIONS Medication Instructions Dosage Frequency Start Date End Date Duration Status Levothyroxine Sodium 100 MCG Orally Once a day 1 tablet 24h Active RESULTS No Results PROCEDURES No Known procedures INSTRUCTIONS MEDICATIONS ADMINISTERED No Known Medications MEDICAL (GENERAL) HISTORY Type Description Date Medical History Hypothyroidism Dx at [facility] was born without a thyroid Medical History 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
--- OUTSIDE RECORDS SUMMARY | 2019-02-11 13:51 | XMS REPORT ---
Author Author Migration, Doctor Organization [facility] Address Unknown Phone Unavailable Care Team Providers Care Site Supervisor Name Role Phone Migration, Doctor Unavailable Unavailable PROBLEMS Type Condition ICD9-CM Code HGJ61-KC Code Onset Dates Condition Status SNOMED Code Problem Cigarette nicotine dependence without complication F17.210 Active 28343384 Problem Allergic rhinitis, unspecified seasonality, unspecified trigger J30.9 Active 90694178 Problem Acquired hypothyroidism E03.9 Active 227464306 Problem Hyperlipidemia, unspecified hyperlipidemia type E78.5 Active 02284189 ALLERGIES No Information ENCOUNTERS Encounter Location Date Diagnosis [place] [address] [address] Sep, Acquired hypothyroidism E03.9 [facility] [address] [address] Sep, Acquired hypothyroidism E03.9 [facility] [address] [address] Sep, Viral upper respiratory tract infection J06.9 and Allergic rhinitis, unspecified seasonality, unspecified trigger J30.9 [facility] [address] [place] [id number] [place] [address] Sep, [facility] [address] [address] Aug, Acute frontal sinusitis, recurrence not specified J01.10 [place] [address] [address] Jul, [place] [address] [address] Jul, Acute cystitis without hematuria N30.00 and Burning with urination R30.0 [facility] [address] [address] Jun, Acquired hypothyroidism E03.9 and Hyperlipidemia, unspecified hyperlipidemia type E78.5 [facility] [address] [place] [id number] [place] [address]- [address] Jun, Acquired hypothyroidism E03.9 ; Hyperlipidemia, unspecified hyperlipidemia type E78.5 and Cigarette nicotine dependence without complication F17.210 [facility] [address] [place] [id number] [place] [address] Jun, Acquired hypothyroidism E03.9 [facility] [address] [place] [id number] [place] [address]- [address] February, Acquired hypothyroidism E03.9 [facility] [address] [place] [id number] [place] [address]- [address] Nov, Acquired hypothyroidism E03.9 [facility] [address] [place] [id number] [place] [address]- [address] Aug, Acute non-recurrent frontal sinusitis J01.10 [facility] [address] [place] [id number] [place] [address]- [address] Aug, [facility] [address] [address]- [address] Aug, Acute rhinosinusitis J01.90 [facility] [address] [place] [id number] [place] [address]- [address]99 Aug, [facility] [address] [place] [id number] [place] [address]- 285[address] Jul, Acquired hypothyroidism E03.9 [facility] [address] [place] [id number] [place] [address]507- 58[address] Jun, [facility] [address] [place] [id number] [place] [address]74- 3[address] May, Screening breast examination Z12.31 ; Skin tag L91.8 and Routine gynecological examination Z01.419 [facility] [address] [place] [id number] [place] [address]159- 69[address] May, Hyperlipidemia, unspecified hyperlipidemia type E78.5 ; Acquired hypothyroidism E03.9 and Skin tag L91.8 [facility] [address] [address]- [address] Mar, [facility] [address] [place] [id number] [place] [address] 86291- [address] Mar, [facility] [address] [address] February, Dysuria R30.0 and Acute cystitis with hematuria N30.01 [facility] [address] [address]- [address] Oct, [facility] [address] [address]- [address] Sep, Hyperlipidemia, unspecified hyperlipidemia type E78.5 [facility] [address] [address]- [address] Aug, Acquired hypothyroidism E03.9 and General medical exam Z00.00 [facility] [address] [address]- [address] Aug, [facility] [address] [address]- [address] Aug, [facility] [address] [place] [id number] [place] [address] Dec, Allergic rhinitis J30.9 [facility] [address] [place] [id number] [place] [address] 79808- 3470 Dec, [facility] [address] [place] [id number] [place] [address] 08954- 9933 15 Dec, 2015 Acute non-recurrent maxillary sinusitis J01.00 [facility] [address] [place] [id number] [place] [address] 72998- 1107 08 Jul, 2015 Other specified hypothyroidism E03.8 [facility] [address] [address]- [address] February, [facility] [address] [id number] [place] [address] February, Absence of menstruation 626.0 [facility] [place] [facility] [address] [id number] [place] [address] Jan, [facility] [address] [id number] [place] [address] Jan, [facility] [place] [facility] [address] [id number] [place] [address] Dec, [facility] [place] [facility] [address] [id number] [place] [address] Dec, [facility] [place] [facility] [address] [facility] [id number] [place] [address]- 8634 Aug, [facility] [place] [facility] [address] [facility] [id number] [place] [address]- 7208 Aug, [facility] [place] [facility] [address] [facility] [id number] [place] [address]- 02[address] Jul, [facility] [place] [facility] [address] [facility] [id number] [place] [address]- 8867 Jul, [facility] [place] [facility] [address] [facility] [id number] [place] [address]- 9137 Jun, [facility] [place] [facility] [address] [facility] [id number] [place] [address]- 6505 Jun, [facility] [place] [facility] [address] [id number] [place] [address]- 2233 08 Jun, 2014 [facility] [place] [facility] [address] [id number] [place] [address] Jun, [facility] [place] [facility] [address] [facility] [id number] [place] [address]- 4337 05 Jun, 2014 [facility] [place] [facility] [address] [facility] [id number] [address] May, [facility] [place] [facility] [address] [id number] [place] [address]- 9514 May, [facility] [address] [id number] [place] [address]- 8291 Oct, [facility] [place] [facility] [address] [id number] [place] [address]- 8759 Oct, [facility] [place] [facility] [address] [id number] [place] [address]- 7391 Oct, [facility] [address] [id number] [place] [address]- 3698 Oct, [facility] [place] [facility] [address] [id number] [place] [address]- 5713 Oct, [facility] [place] [facility] [address] [id number] [place] [address]- 3295 Oct, [facility] [address] [id number] [place] [address]- 8253 Oct, [facility] [place] [facility] [address] [id number] [place] [address]- 6781 Oct, [facility] [place] [facility] [address] [id number] [place] [address]- 1847 Oct, [facility] [place] [facility] [address] [id number] [place] [address]- 2125 Oct, [facility] [place] [facility] [address] [id number] [place] [address]- 6493 Oct, [facility] [place] [facility] [address] [id number] [place] [address]- 2422 Oct, [facility] [place] [facility] [address] [id number] [place] [address]- 0237 Sep, [facility] [place] [facility] [address] [id number] [place] [address]- 9[address] 13 Sep, 2013 [facility] [place] [facility] [address] [id number] [place] [address]- 7909 Apr, [facility] [place] [facility] [address] [id number] [place] [address]- 49[address] Mar, [facility] [place] [facility] [address] [id number] [place] [address]- 6069 Mar, [facility] [place] [facility] [address] [id number] [place] [address]- 3579 Mar, [facility] [place] [facility] [address] [id number] [place] [address]- 6492 February, [facility] [place] [facility] [address] [id number] [place] [address]- 5225 Oct, [facility] [place] [facility] [address] [id number] [place] [address]- 9959 Oct, [facility] [place] [facility] [address] [id number] [place] [address]- 6767 Oct, [facility] [place] [facility] [address] [id number] [place] [address]- 5242 Oct, [facility] [place] [facility] [address] [id number] [place] [address]- 3365 Sep, [facility] [place] [facility] [address] [id number] [place] [address]- 4717 Sep, [facility] [place] [facility] [address] [id number] [place] [address]- 5254 May, [facility] [place] [facility] [address] [id number] [place] [address]- 3572 May, [facility] [place] [facility] [address] [id number] [place] [address]- 3962 May, [facility] [place] [facility] [address] [id number] [place] [address]- 0901 May, [facility] [place] [facility] [address] [id number] [place] [address]- 5885 May, [facility] [place] [facility] [address] [id number] [place] [address]- 8696 May, [facility] [address] [id number] [place] [address]- 9176 Apr, [facility] [place] [facility] [address] [id number] [place] [address]- 4276 Apr, [facility] [address] [id number] [place] [address]- 9460 Mar, [facility] [place] [facility] [address] [id number] [place] [address]- 0148 Mar, [facility] [place] [facility] [address] [id number] [place] [address], [place] [address]- 6844 February, [facility] [place] [facility] [address] [facility] [id number] [place] [address]- 9196 February, [facility] [place] [facility] [id number] [place] [address], [place] [address]- 2431 Nov, [facility] [address] [id number] [place] [address]- 5978 Nov, [facility] [place] [facility] [id number] [place] [address]- 8275 Nov, [facility] [address] [place] [id number] [place] [address]- 6569 14 Nov, 2011 [facility] [place] [facility] [address] [facility] [id number] [place] [address]- 9047 Nov, [facility] [place] [facility] [address] [id number] [place] [address]- 7444 Jul, [facility] [place] [facility] [address] [id number] [place] [address]- 8681 Nov, [facility] [place] [facility] [address] [facility] [id number] [place] [address]- 7886 Sep, [facility] [place] [facility] [address] [id number] [place] [address]- 1059 10 Sep, 2010 [facility] [address] [id number] [address]- [address] 13 Jul, 2010 [facility] [address], [place] [address]- 25[address] 16 Dec, 2009 [facility] [address], [place] [address]- 2546 17 Aug, 2009 [facility] [address], [place] [address]- 2546 Aug, [facility] [address], [place] [address] 2546 Aug, [facility] [address], [place] [address]- 65[address] Jul, [facility] [address] [id number] [address]- 4203 Apr, IMMUNIZATIONS No Known Immunizations SOCIAL HISTORY Never Assessed REASON FOR VISIT [facility] PLAN OF CARE VITAL SIGNS MEDICATIONS Unknown Medications RESULTS No Results PROCEDURES No Known procedures INSTRUCTIONS MEDICATIONS ADMINISTERED No Known Medications MEDICAL (GENERAL) HISTORY Type Description Date Medical History Hypothyroidism Dx at [facility] was born without a thyroid Medical History 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
--- OUTSIDE RECORDS SUMMARY | 2019-02-11 13:51 | XMS REPORT ---
Author Author DIANE RIVERA Organization [facility] Address [address] [place] [address] Care Team Providers Care Disability Specialist Name Role Phone DIANE RIVERA Unavailable PROBLEMS Type Condition ICD9-CM Code PMK11-MQ Code Onset Dates Condition Status SNOMED Code Problem Allergic rhinitis, unspecified seasonality, unspecified trigger J30.9 Active 34202124 Problem Cigarette nicotine dependence without complication F17.210 Active 57708855 Problem Hyperlipidemia, unspecified hyperlipidemia type E78.5 Active 96752929 Problem Acquired hypothyroidism E03.9 Active 500048032 ALLERGIES No Information ENCOUNTERS Encounter Location Date Diagnosis [facility] [address] [address] Sep, Acquired hypothyroidism E03.9 [facility] [address] [address] Sep, Viral upper respiratory tract infection J06.9 and Allergic rhinitis, unspecified seasonality, unspecified trigger J30.9 [facility] [id number] [place] [address]203- 6094 Sep, [facility] [id number] [place] [address] 11252- 2258 Aug, Acute frontal sinusitis, recurrence not specified J01.10 [facility] [id number] [place] [address] 25460- 7584 Jul, [facility] [address] [address] Jul, Acute cystitis without hematuria N30.00 and Burning with urination R30.0 [facility] [id number] [place] [address] 34794- 6649 Jun, Acquired hypothyroidism E03.9 and Hyperlipidemia, unspecified hyperlipidemia type E78.5 [facility] [id number] [place] [address] 39336- [address] Jun, Acquired hypothyroidism E03.9 ; Hyperlipidemia, unspecified hyperlipidemia type E78.5 and Cigarette nicotine dependence without complication F17.210 [facility] [id number] [place] [address] 78374- 2756 Jun, Acquired hypothyroidism E03.9 [facility] [id number] [place] [address] 04426- 3864 February, Acquired hypothyroidism E03.9 [facility] [id number] [place] [address] 82119- 9968 Nov, Acquired hypothyroidism E03.9 [facility] [id number] [place] [address] 58663- 9915 14 Aug, 2017 Acute non-recurrent frontal sinusitis J01.10 [facility] [id number] [place] [address] 37041- 5925 07 Aug, 2017 [facility] [id number] [place] [address] 43535- 7170 Aug, Acute rhinosinusitis J01.90 [facility] [id number] [place] [address] 18857- 8819 Aug, [facility] [id number] [place] [address] 51812- 3751 Jul, Acquired hypothyroidism E03.9 [facility] [id number] [place] [address] 34061- 2773 Jun, [facility] [id number] [place] [address] 85712- 7315 May, Screening breast examination Z12.31 ; Skin tag L91.8 and Routine gynecological examination Z01.419 [facility] [id number] [place] [address] 09884- 6010 May, Hyperlipidemia, unspecified hyperlipidemia type E78.5 ; Acquired hypothyroidism E03.9 and Skin tag L91.8 [facility] [id number] [place] [address] 18085- 1101 Mar, [facility] [id number] [place] [address] 19587- 5018 Mar, [facility] [id number] [place] [address] 82645 [address]9362 February, Dysuria R30.0 and Acute cystitis with hematuria N30.01 [facility] [id number] [place] [address] 31035- 7632 Oct, [facility] [address] [address]- 98[address] Sep, Hyperlipidemia, unspecified hyperlipidemia type E78.5 [facility] [id number] [place] [address] 87202- 2728 Aug, Acquired hypothyroidism E03.9 and General medical exam Z00.00 [facility] [id number] [place] [address] 25486- 8666 Aug, [facility] [id number] [place] [address] 08661- 4113 Aug, [facility] [id number] [place] [address] 16381 -8432 Dec, Allergic rhinitis J30.9 [facility] [id number] [place] [address] 54117- 9769 Dec, [facility] [id number] [place] [address] 28357- 1930 Dec, Acute non-recurrent maxillary sinusitis J01.00 [facility] [id number] [place] [address] 26957- 1911 Jul, Other specified hypothyroidism E03.8 [facility] [id number] [place] [address] 80455- 5296 February, [facility] [address] [id number] [place] [address]- 1335 February, Absence of menstruation 626.0 [facility] [place] [facility] [address] [id number] [place] [address]- 6803 Jan, [facility] [place] [facility] [address] [facility] [id number] [place] [address]- 2866 Jan, [facility] [place] [facility] [address] [id number] [place] [address]- 8645 Dec, [facility] [place] [facility] [address] [id number] [place] [address]- 0758 Dec, [facility] [place] [facility] [address] [id number] [place] [address]- 1148 Aug, [facility] [place] [facility] [id number] [place] [address]- 6[address] Aug, [facility] [place] [facility] [address] [id number] [place] [address]- 5462 Jul, [facility] [place] [facility] [address] [id number] [place] [address]- 8220 Jul, [facility] [place] [facility] [address] [facility] [id number] [place] [address]- 5622 Jun, [facility] [place] [facility] [address] [facility] [id number], [place] [address]- 5738 Jun, [facility] [place] [facility] [address] [id number], [place] [address]- 9098 08 Jun, 2014 [facility] [place] [facility] [address] [facility] [id number] [place] [address]- 1486 Jun, [facility] [place] [facility] [address] [id number], [place] [address]- 6753 Jun, [facility] [place] [facility] [address] [facility] [id number] [place] [address]- 5548 May, [facility] [place] [facility] [address] [id number] [place] [address]- 4219 May, [facility] [address] [id number] [place] [address]- 7768 Oct, [facility] [place] [facility] [address] [id number] [place] [address]- 5440 Oct, [facility] [place] [facility] [address] [id number] [place] [address]- 4223 Oct, [facility] [place] [facility] [address] [id number] [place] [address]- 4676 Oct, [facility] [place] [facility] [address] [id number] [place] [address]- 3762 Oct, [facility] [place] [facility] [address] [id number] [place] [address]- 0574 Oct, [facility] [place] [facility] [address] [id number] [place] [address]- 7878 Oct, [facility] [place] [facility] [address] [id number] [place] [address]- 6370 Oct, [facility] [place] [facility] [address] [id number] [place] [address]- 1582 Oct, [facility] [place] [facility] [address] [id number] [place] [address]- 5331 Oct, [facility] [place] [facility] [address] [id number] [place] [address]- 9970 Oct, [facility] [place] [facility] [address] [id number] [place] [address]- 0176 Oct, [facility] [place] [facility] [address] [id number] [place] [address]- 9613 Sep, [facility] [place] [facility] [address] [id number] [place] [address]- 0962 Sep, [facility] [place] [facility] [address] [id number] [place] [address]- 1923 Apr, [facility] [place] [facility] [address] [id number] [place] [address]- 3689 Mar, [facility] [place] [facility] [address] [id number] [place] [address]- 6007 Mar, [facility] [place] [facility] [address] [id number] [place] [address]- 0979 Mar, [facility] [place] [facility] [address] [id number] [place] [address]- 7043 February, [facility] [place] [facility] [address] [id number] [place] [address]- 2492 Oct, [facility] [place] [facility] [address] [id number] [place] [address]- 7026 Oct, [facility] [place] [facility] [address] [id number] [place] [address]- 6948 Oct, [facility] [place] [facility] [address] [id number] [place] [address]- 4359 Oct, [facility] [place] [facility] [address] [id number] [place] [address]- 5225 Sep, [facility] [place] [facility] [address] [id number] [place] [address]- 6043 Sep, [facility] [place] [facility] [address] [id number] [place] [address]- 1422 May, [facility] [place] [facility] [address] [id number] [place] [address]- 6026 May, [facility] [place] [facility] [address] [id number] [place] [address]- 4421 May, [facility] [place] [facility] [address] [id number] [place] [address]- 4690 May, [facility] [place] [facility] [address] [id number] [place] [address]- 1728 May, [facility] [place] [facility] [address] [id number], [place] [address]- 5066 May, [facility] [address] [id number] [place] [address]- 9595 Apr, [facility] [place] [facility] [address] [id number] [place] [address]- 0256 Apr, [facility] [address] [facility] [id number] [place] [address]- 5880 Mar, [facility] [place] [facility] [address] [id number] [place] [address]- 0775 Mar, [facility] [address] [id number] [place] [address]- 6342 February, [facility] [address] [facility] [id number] [place] [address]- 6496 February, [facility] [address] [facility] [id number] [place] [address]- 2466 Nov, [facility] [place] [facility] [address] [id number] [place] [address]- 3005 Nov, [facility] [address] [facility] [id number] [place] [address]- 5331 Nov, [facility] [address] [facility] [id number] [place] [address]- 9736 14 Nov, 2011 [facility] [address] [facility] [id number] [place] [address]- 9721 10 Nov, 2011 [facility] [place] [facility] [address] [id number], [place] [address] 2546 Jul, [facility] [place] [facility] [address] [facility] [id number] [place] [address]- 2126 Nov, [facility] [place] [facility] [address] [facility] [id number] [place] [address] 2546 15 Sep, 2010 [facility] [place] [facility] [address] [facility] [id number], [place] [address]- 7316 Sep, [facility] [place] [facility] [address] [id number], [place] [address] 2546 13 Jul, 2010 [facility] [address] [id number], [place] [address]- 9878 16 Dec, 2009 [facility] [address] [id number], [place] [address]- 9496 Aug, [facility] [address] [id number], [place] [address] 254 Aug, [facility] [address] [id number], [place] [address]- 2869 Aug, [facility] [address] [id number], [place] [address]- 5615 Jul, [facility] [address] [id number], [place] [address]- 2614 Apr, IMMUNIZATIONS No Known Immunizations SOCIAL HISTORY Never Assessed REASON FOR VISIT Lab (walk-in) PLAN OF CARE Activity Details Pending Test LIPID PANEL Pending Test TSH VITAL SIGNS MEDICATIONS Unknown Medications RESULTS No Results PROCEDURES Procedure Date Ordered Result Body Site LIPID PANEL Sep 27, 2018 ASSAY THYROID STIM HORMONE Sep 27, 2018 INSTRUCTIONS MEDICATIONS ADMINISTERED No Known Medications MEDICAL (GENERAL) HISTORY Type Description Date Medical History Hypothyroidism Dx at [facility] was born without a thyroid Medical History 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
--- OUTSIDE RECORDS SUMMARY | 2019-02-11 13:52 | XMS REPORT ---
Author Author FRANCISCA DOUGLAS Organization [facility] Address [address] [place] [address] Care Team Providers Care Wellhead Pumper Name Role Phone FRANCISCA DOUGLAS Unavailable PROBLEMS Type Condition ICD9-CM Code XQB46-WG Code Onset Dates Condition Status SNOMED Code Problem Cigarette nicotine dependence without complication F17.210 Active 40004653 Problem Hyperlipidemia, unspecified hyperlipidemia type E78.5 Active 92136898 Problem Acquired hypothyroidism E03.9 Active 118193337 ALLERGIES Substance Reaction Event Type Date Status Tetracycline HCl Unknown Drug Allergy Aug, Active Demerol Unknown Drug Allergy Aug, Active Amoxicillin Unknown Drug Allergy Aug, Active ENCOUNTERS Encounter Location Date Diagnosis [place] [id number] [place] [address] 76045- 5101 Sep, [place] [id number] [place] [address] 29393- 3175 Aug, Acute frontal sinusitis, recurrence not specified J01.10 [place] [id number] [place] [address] 27154- 8434 Jul, [place] [id number] [place] [address] 72026- 6011 Jul, Acute cystitis without hematuria N30.00 and Burning with urination R30.0 [place] [id number] [place] [address] 88977- 6820 Jun, Acquired hypothyroidism E03.9 and Hyperlipidemia, unspecified hyperlipidemia type E78.5 [place] [id number] [place] [address] 78717- 4870 Jun, Acquired hypothyroidism E03.9 ; Hyperlipidemia, unspecified hyperlipidemia type E78.5 and Cigarette nicotine dependence without complication F17.210 [place] [id number] [place] [address] 88997- 8088 Jun, Acquired hypothyroidism E03.9 [facility] [id number] [place] [address] 30891- 7661 February, Acquired hypothyroidism E03.9 [facility] [id number] [place] [address] 71430- 6140 Nov, Acquired hypothyroidism E03.9 [facility] [id number] [place] [address] 50737- 6861 Aug, Acute non-recurrent frontal sinusitis J01.10 [facility] [id number] [place] [address] 35334- 3629 Aug, [facility] [id number] [place] [address] 01534- 7957 Aug, Acute rhinosinusitis J01.90 [facility] [id number] [place] [address] 91830- 0947 Aug, [facility] [id number] [place] [address] 24363- 9221 Jul, Acquired hypothyroidism E03.9 [facility] [id number] [place] [address] 53051- 3015 Jun, [facility] [id number] [place] [address] 10742- 6286 May, Screening breast examination Z12.31 ; Skin tag L91.8 and Routine gynecological examination Z01.419 [facility] [id number] [place] [address] 84252- 4229 May, Hyperlipidemia, unspecified hyperlipidemia type E78.5 ; Acquired hypothyroidism E03.9 and Skin tag L91.8 [facility] [id number] [place] [address] 39830- 2232 Mar, [facility] [id number] [place] [address] 12703- 9352 Mar, [facility] [id number] [place] [address] 40558 -5062 February, Dysuria R30.0 and Acute cystitis with hematuria N30.01 [facility] [id number] [place] [address] 68008- 3606 Oct, [facility] [id number] [place] [address] 49129- 9368 Sep, Hyperlipidemia, unspecified hyperlipidemia type E78.5 [facility] [id number] [place] [address] 14476- 5266 Aug, Acquired hypothyroidism E03.9 and General medical exam Z00.00 [facility] [id number] [place] [address] 66934- 6768 Aug, [facility] [id number] [place] [address] 75365- 5227 Aug, [facility] [id number] [place] [address] 23242 -0657 Dec, Allergic rhinitis J30.9 [facility] [id number] [place] [address] 09668- 2926 Dec, [facility] [id number] [place] [address] 98532- 5164 15 Dec, 2015 Acute non-recurrent maxillary sinusitis J01.00 [facility] [id number] [place] [address] 95771- 2997 Jul, Other specified hypothyroidism E03.8 [facility] [id number] [place] [address] 96801- 0940 February, [facility] [id number] [place] [address] 46571- 6820 February, Absence of menstruation 626.0 [facility] [id number] [place] [address] 37265- 2630 Jan, [facility] [address] [place] [id number] [place] [address] 9575 Jan, [facility] [place] [facility] [address] [id number] [place] [address]- 9628 Dec, [facility] [place] [facility] [address] [id number] [place] [address]- 7324 Dec, [facility] [place] [facility] [address] [id number] [place] [address]- 5488 Aug, [facility] [place] [facility] [address] [id number] [place] [address]- 7746 Aug, [facility] [place] [facility] [address] [id number] [place] [address]- 7594 Jul, [facility] [place] [facility] [address] [id number] [place] [address]- 2431 Jul, [facility] [place] [facility] [address] [id number] [place] [address]- 8680 Jun, [facility] [place] [facility] [address] [id number] [place] [address]- 2748 Jun, [facility] [place] [facility] [address] [id number] [place] [address]- 2056 Jun, [facility] [place] [facility] [address] [id number] [place] [address]- 6462 Jun, [facility] [place] [facility] [address] [id number] [place] [address]- 0119 Jun, [facility] [place] [facility] [address] [id number] [place] [address]- 2473 May, [facility] [place] [facility] [address] [id number] [place] [address]- 6458 May, [facility] [place] [facility] [address] [id number] [place] [address]- 2732 Oct, [facility] [place] [facility] [address] [id number] [place] [address]- 5852 Oct, [facility] [place] [facility] [address] [id number] [place] [address]- 5354 Oct, [facility] [place] [facility] [address] [id number] [place] [address]- 8279 Oct, [facility] [place] [facility] [address] [id number] [place] [address]- 6324 Oct, [facility] [place] [facility] [address] [id number] [place] [address]- 4466 Oct, [facility] [address] [id number] [place] [address]- 0990 Oct, [facility] [place] [facility] [address] [id number] [place] [address]- 3556 Oct, [facility] [place] [facility] [address] [id number] [place] [address]- 7028 Oct, [facility] [place] [facility] [address] [id number] [place] [address]- 9887 Oct, [facility] [place] [facility] [address] [id number] [place] [address]- 4159 Oct, [facility] [place] [facility] [address] [id number] [place] [address]- 0143 Oct, [facility] [place] [facility] [address] [id number] [place] [address]- 7530 Sep, [facility] [place] [facility] [address] [id number] [place] [address]- 8767 Sep, [facility] [place] [facility] [address] [id number] [place] [address]- 7805 Apr, [facility] [place] [facility] [address] [id number] [place] [address]- 3921 Mar, [facility] [place] [facility] [address] [id number] [place] [address]- 4032 Mar, [facility] [place] [facility] [address] [id number] [place] [address]- 6563 Mar, [facility] [place] [facility] [address] [id number] [place] [address]- 5480 February, [facility] [place] [facility] [address] [id number] [place] [address]- 6510 Oct, [facility] [place] [facility] [address] [id number] [place] [address]- 7248 Oct, [facility] [place] [facility] [address] [id number] [place] [address]- 2720 Oct, [facility] [place] [facility] [address] [id number] [place] [address]- 2521 Oct, [facility] [place] [facility] [address] [id number] [place] [address]- 0898 Sep, [facility] [place] [facility] [address] [id number] [place] [address]- 6306 Sep, [facility] [place] [facility] [address] [id number] [place] [address]- 0694 May, [facility] [place] [facility] [address] [id number] [place] [address]- 1416 May, [facility] [place] [facility] [address] [id number] [place] [address]- 2109 May, [facility] [place] [facility] [address] [id number] [place] [address]- 6775 May, [facility] [place] [facility] [address] [id number] [place] [address]- 1621 May, [facility] [place] [facility] [address] [id number] [place] [address]- 2961 May, [facility] [place] [facility] [address] [id number] [place] [address]- 2788 Apr, [facility] [place] [facility] [address] [id number] [place] [address]- 2717 Apr, [facility] [place] [facility] [address] [id number] [place] [address]- 3803 Mar, [facility] [address] [id number] [place] [address]- 6498 Mar, [facility] [place] [facility] [address] [id number] [place] [address]- 5569 February, [facility] [place] [facility] [address] [id number] [place] [address]- 6334 February, [facility] [place] [facility] [address] [id number] [place] [address]- 9492 Nov, [facility] [place] [facility] [id number] [place] [address], [place] [address]- 1483 Nov, [facility] [place] [facility] [address] [facility] [id number] [place] [address]- 8076 17 Nov, 2011 [facility] [place] [facility] [address] [facility] [id number] [place] [address]- 1324 14 Nov, 2011 [facility] [place] [facility] [address] [facility] [id number] [place] [address]- 3566 Nov, [facility] [id number] [place] [address]- 2145 Jul, [facility] [place] [facility] [address] [facility] [id number] [place] [address]- 5786 12 Nov, 2010 [facility] [place] [facility] [address] [id number], [place] [address]- 7159 15 Sep, 2010 [facility] [place] [facility] [address] [id number] [place] [address]- 5332 10 Sep, 2010 [facility] [place] [facility] [address] [id number] [place] [address]- 2723 13 Jul, 2010 [facility] [place] [facility] [address] [id number] [place] [address]- 0258 16 Dec, 2009 [facility] [place] [facility] [address] [facility] [id number], [place] [address]- 2546 Aug, [facility] [address] [facility] [id number], [place] [address]- 2546 Aug, [facility] [address] [facility] [id number], [place] [address]- 2546 Aug, [facility] [address] [facility] [id number], [place] [address]- 2546 Jul, [facility] [address] [facility] [id number], [place] [address]- 2546 Apr, IMMUNIZATIONS No Known Immunizations SOCIAL HISTORY Never Assessed REASON FOR VISIT Cold symptoms-LISET barillas, pt is complaining of a sinus infection seven days ago , also states that she is having green phlegm drainage PLAN OF CARE Activity Details Follow Up prn Reason: VITAL SIGNS Height 64.5 in 2018-09-09 Weight 145.7 lbs 2018-09-09 Temperature 97.7 degrees Fahrenheit 2018-09-09 Heart Rate 90 bpm 2018-09-09 Respiratory Rate 18 2018-09-09 Oximetry on room air:100 % 2018-09-09 BMI 24.62 kg/m2 2018-09-09 Blood pressure systolic 110 mmHg 2018-09-09 Blood pressure diastolic 84 mmHg 2018-09-09 MEDICATIONS Medication Instructions Dosage Frequency Start Date End Date Duration Status Zithromax Z-Geovanny 250 MG Orally Once a day 2 tablets on the first day, then 1 tablet daily for 4 days 24h Aug, 5 day(s) Active Pravastatin Sodium 20 mg Orally Once a day 1 tablet 24h Jun, 30 day(s) Active Levothyroxine Sodium 100 MCG Orally Once a day 1 tablet 24h Active RESULTS No Results PROCEDURES No Known procedures INSTRUCTIONS MEDICATIONS ADMINISTERED No Known Medications MEDICAL (GENERAL) HISTORY Type Description Date Medical History Hypothyroidism Dx at 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
--- OUTSIDE RECORDS SUMMARY | 2019-02-11 13:52 | XMS REPORT ---
Author Author KAY SAHU [facility] Address [address] [place] [address] Care Team Providers Care Customer Counter Associate Name Role Phone KAY SAHU Unavailable PROBLEMS Type Condition ICD9-CM Code [id number] Code Onset Dates Condition Status SNOMED Code Problem Allergic rhinitis, unspecified seasonality, unspecified trigger J30.9 Active 86992426 Problem Cigarette nicotine dependence without complication F17.210 Active 98247427 Problem Hyperlipidemia, unspecified hyperlipidemia type E78.5 Active 59314406 Problem Acquired hypothyroidism E03.9 Active [id number] ALLERGIES Substance Reaction Event Type Date Status Tetracycline HCl Unknown Drug Allergy Sep, Active Demerol Unknown Drug Allergy Sep, Active Amoxicillin Unknown Drug Allergy Sep, Active ENCOUNTERS Encounter Location Date Diagnosis [facility] [place] [address] [address] Sep, [facility] [id number] [place] [address]14 Sep, Viral upper respiratory tract infection J06.9 and Allergic rhinitis, unspecified seasonality, unspecified trigger J30.9 [facility] [place] [id number] [place] [address] 96193- 6009 Sep, [facility] [place] [id number] [place] [address] 48457- 4240 Aug, Acute frontal sinusitis, recurrence not specified J01.10 [facility] [place] [address] [address] Jul, [facility] [place] [id number] [place] [address] 42428- 4706 Jul, Acute cystitis without hematuria N30.00 and Burning with urination R30.0 [facility] [place] [id number] [place] [address] 00874- 5616 25 Jun, 2018 Acquired hypothyroidism E03.9 and Hyperlipidemia, unspecified hyperlipidemia type E78.5 [facility] [place] [id number] [place] [address] 13280- 9079 19 Jun, 2018 Acquired hypothyroidism E03.9 ; Hyperlipidemia, unspecified hyperlipidemia type E78.5 and Cigarette nicotine dependence without complication F17.210 [place] [facility] [id number] [place] [address] 34890- 2872 17 Jun, 2018 Acquired hypothyroidism E03.9 [place] [facility] [id number] [place] [address] 66380- 1176 February, Acquired hypothyroidism E03.9 [place] [id number] [place] [address] 52812- 5373 Nov, Acquired hypothyroidism E03.9 [place] [id number] [place] [address] 74629- 0920 14 Aug, 2017 Acute non-recurrent frontal sinusitis J01.10 [place] [id number] [place] [address] 70440- 1277 07 Aug, 2017 [place] [id number] [place] [address] 70639- 9538 07 Aug, 2017 Acute rhinosinusitis J01.90 [place] [id number] [place] [address] 49207- 5098 04 Aug, 2017 [facility] [place] [id number] [place] [address] 24418- 1736 Jul, Acquired hypothyroidism E03.9 [facility] [place] [id number] [place] [address] 86803- 8176 08 Jun, 2017 [place] [id number] [place] [address] 74175- 3596 May, Screening breast examination Z12.31 ; Skin tag L91.8 and Routine gynecological examination Z01.419 [place] [id number] [place] [address] 69978- 9600 May, Hyperlipidemia, unspecified hyperlipidemia type E78.5 ; Acquired hypothyroidism E03.9 and Skin tag L91.8 [facility] [place] [id number] [place] [address] 52869- 0603 Mar, [facility] [place] [id number] [place] [address] 24333- 8438 Mar, [facility] [id number] [place] [address] 16947 -4153 February, Dysuria R30.0 and Acute cystitis with hematuria N30.01 [place] [id number] [place] [address] 24193- 8464 Oct, [facility] [place] [address] 03114- 4371 Sep, Hyperlipidemia, unspecified hyperlipidemia type E78.5 [place] [id number] [place] [address] 26047- 1253 Aug, Acquired hypothyroidism E03.9 and General medical exam Z00.00 [place] [id number] [place] [address] 21285- 2662 Aug, [facility] [place] [id number] [place] [address] 70096- 3771 Aug, [facility] [id number] [place] [address] 96082 -8496 Dec, Allergic rhinitis J30.9 [facility] [place] [id number] [place] [address] 63525- 9577 Dec, [facility] [place] [id number] [place] [address] 70359- 1723 15 Dec, 2015 Acute non-recurrent maxillary sinusitis J01.00 [facility] [place] [id number] [place] [address] 62217- 3896 08 Jul, 2015 Other specified hypothyroidism E03.8 [facility] [address] [id number], [place] [address] February, [facility] [id number] [place] [address] 51628- 1010 February, Absence of menstruation 626.0 [facility] [address] [place] [address] 4871 Jan, [facility] [place] [facility] [address] [facility] [id number] [place] [address] 11342- 4780 Jan, [facility] [address] [facility] [id number] [place] [address]- 2182 Dec, [facility] [place] [facility] [id number] [place] [address] 81582- 5782 Dec, [facility] [address] [address] 0437 Aug, [facility] [place] [facility] [address] [facility] [id number], [place] [address]- 3746 Aug, [facility] [place] [facility] [id number] [address] 6[address] Jul, [facility] [place] [facility] [id number] [address]- 1460 Jul, [facility] [place] [facility] [address] [address]- 2460 Jun, [facility] [place] [facility] [address] [facility] [id number], [place] [address]- 4722 Jun, [facility] [place] [facility] [address] [facility] [id number], [place] [address]- 254 Jun, [facility] [place] [facility] [address] [facility] [id number], [place] [address]- 4358 Jun, [facility] [place] [facility] [id number] [address] Jun, [facility] [place] [facility] [address] [facility] [id number] [place] [address]- 1866 May, [facility] [address] [id number] [place] [address]- 4783 May, [facility] [place] [facility] [address] [id number] [place] [address]- 5075 Oct, [facility] [place] [facility] [address] [id number] [place] [address]- 1463 Oct, [facility] [place] [facility] [address] [id number] [place] [address]- 5501 Oct, [facility] [place] [facility] [address] [id number] [place] [address]- 1552 Oct, [facility] [place] [facility] [address] [id number] [place] [address]- 6444 Oct, [facility] [place] [facility] [address] [id number] [place] [address]- 4860 Oct, [facility] [place] [facility] [address] [id number] [place] [address]- 8176 Oct, [facility] [place] [facility] [address] [id number] [place] [address]- 1621 Oct, [facility] [place] [facility] [address] [id number] [place] [address]- 8568 Oct, [facility] [place] [facility] [address] [id number] [place] [address]- 8661 Oct, [facility] [place] [facility] [address] [id number] [place] [address]- 2486 Oct, [facility] [place] [facility] [address] [id number] [place] [address]- 8093 Oct, [facility] [place] [facility] [address] [id number] [place] [address]- 4850 Sep, [facility] [place] [facility] [address] [id number] [place] [address]- 2908 Sep, [facility] [place] [facility] [address] [id number] [place] [address]- 1603 Apr, [facility] [address] [id number] [place] [address]- 9898 Mar, [facility] [address] [id number] [place] [address] 2546 Mar, [facility] [address] [id number] [place] [address]- 2546 Mar, [facility] [address] [id number] [place] [address]- 8336 February, [facility] [address] [id number] [place] [address]- 1526 Oct, [facility] [address] [id number] [place] [address]- 7893 Oct, [facility] [address] [id number] [place] [address]- 3752 Oct, [facility] [address] [id number] [place] [address]- 4101 Oct, [facility] [address] [id number] [place] [address]- 7796 Sep, [facility] [address] [id number] [place] [address]- 3878 Sep, [facility] [address] [id number] [place] [address]- 7046 May, [facility] [place] [facility] [address] [id number] [place] [address]- 1244 May, [facility] [place] [facility] [address] [id number] [place] [address]- 8676 May, [facility] [place] [facility] [address] [id number] [place] [address]- 2546 May, [facility] [place] [facility] [address] [id number], [place] [address]- 2066 May, [facility] [address] [id number] [place] [address]- 9017 May, [facility] [place] [facility] [address] [id number] [place] [address]- 2655 Apr, [facility] [place] [facility] [address] [facility] [id number] [place] [address]- 8057 Apr, [facility] [place] [facility] [address] [id number] [place] [address]- 8795 Mar, [facility] [place] [facility] [address] [id number] [place] [address]- 6517 Mar, [facility] [place] [facility] [address] [facility] [id number] [place] [address]- 4450 February, [facility] [id number] [place] [address]- 5194 February, [facility] [place] [facility] [address] [id number] [place] [address]- 5888 Nov, [facility] [place] [facility] [id number] [place] [address]- 1439 Nov, [facility] [place] [facility] [address] [facility] [id number] [place] [address]- 5766 17 Nov, 2011 [facility] [address] [facility] [id number] [place] [address]- 5826 14 Nov, 2011 [facility] [place] [facility] [address] [facility] [id number], [place] [address]- 0576 10 Nov, 2011 [facility] [place] [facility] [address] [facility] [id number] [place] [address]- 6114 Jul, [facility] [place] [facility] [address] [facility] [id number], [place] [address]- 5920 12 Nov, 2010 [facility] [place] [facility] [address] [facility] [id number], [place] [address]- 8710 Sep, [facility] [place] [address] [id number], [place] [address]- 2546 Sep, [facility] [place] [address], [place] [address]- 7796 Jul, [facility] [place] [address], [place] [address]- 2546 Dec, [facility] [place] [id number] [place] [address] 93872- 3776 Aug, [facility] [place] [id number] [place] [address] 33816- 7316 Aug, [place] [id number] [place] [address] 91162- 2376 Aug, [facility] [place] [id number] [place] [address] 89274- 6706 Jul, [place] [address], [place] [address]- 6126 Apr, IMMUNIZATIONS Vaccine Route Administration Date Status DEXAMETHASONE 4MG/ML (PER 1 MG) IM Intramuscular Sep 18, 2018 Administered DEPO MEDROL 80 MG/ML IM Intramuscular Sep 18, 2018 Administered SOCIAL HISTORY Never Assessed REASON FOR VISIT congestion-LISET barillas, pt was here last week and was prescribed a Z-pack and she said it didn't work still having a lot of the symptoms wiith runny nose watery eyes and sneezing and coughing green phlegm PLAN OF CARE Activity Details Follow Up if not improving or with pcp for regular fu Reason: VITAL SIGNS Height 64.5 in 2018-09-18 Weight 144.6 lbs 2018-09-18 Temperature 97.5 degrees Fahrenheit 2018-09-18 Heart Rate 98 bpm 2018-09-18 Respiratory Rate 18 2018-09-18 Oximetry on room air:98 % 2018-09-18 BMI 24.43 kg/m2 2018-09-18 Blood pressure systolic 120 mmHg 2018-09-18 Blood pressure diastolic 92 mmHg 2018-09-18 MEDICATIONS Medication Instructions Dosage Frequency Start Date End Date Duration Status Cetirizine HCl 10 mg Orally Once a day 1 tablet 24h Sep, 30 day (s) Active Pravastatin Sodium 20 mg Orally Once a day 1 tablet 24h Jun, 30 day(s) Active Levothyroxine Sodium 100 MCG Orally Once a day 1 tablet 24h Active Flonase 50 mcg/act Nasally Once a day 1 spray in each nostril 24h Sep, 30 day(s) Active RESULTS No Results PROCEDURES Procedure Date Ordered Result Body Site DEXAMETHASONE 4MG/ML (PER 1 MG) Sep 18, 2018 THER/PROPH/DIAG INJ, SC/IM Sep 18, 2018 DEPO MEDROL 80 MG/ML Sep 18, 2018 INSTRUCTIONS MEDICATIONS ADMINISTERED No Known Medications MEDICAL (GENERAL) HISTORY Type Description Date Medical History Hypothyroidism Dx at [facility] was born without a thyroid Medical History 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
--- OUTSIDE RECORDS SUMMARY | 2019-02-11 13:52 | XMS REPORT ---
Author Author KAY SAHU [facility] Address [address] [place] [address] Care Team Providers Care Conference And Event Organiser Name Role Phone KAY SAHU Unavailable PROBLEMS Type Condition ICD9-CM Code VXY71-UY Code Onset Dates Condition Status SNOMED Code Problem Cigarette nicotine dependence without complication F17.210 Active 44269465 Problem Hyperlipidemia, unspecified hyperlipidemia type E78.5 Active 75606113 Problem Acquired hypothyroidism E03.9 Active 101348819 ALLERGIES Substance Reaction Event Type Date Status Tetracycline HCl Unknown Drug Allergy Jul, Active Demerol Unknown Drug Allergy Jul, Active Amoxicillin Unknown Drug Allergy Jul, Active ENCOUNTERS Encounter Location Date Diagnosis [place] [id number] [place] [address] 96085- 2314 Jul, [facility] [id number] [place] [address] 73075- 1155 Jul, Acute cystitis without hematuria N30.00 and Burning with urination R30.0 [place] [id number] [place] [address] 00232- 5321 Jun, Acquired hypothyroidism E03.9 and Hyperlipidemia, unspecified hyperlipidemia type E78.5 [facility] [id number] [place] [address] 72744- 1741 Jun, Acquired hypothyroidism E03.9 ; Hyperlipidemia, unspecified hyperlipidemia type E78.5 and Cigarette nicotine dependence without complication F17.210 [facility] [id number] [place] [address] 84636- 4866 Jun, Acquired hypothyroidism E03.9 [place] [id number] [place] [address] 93818- 2197 February, Acquired hypothyroidism E03.9 [facility] [id number] [place] [address] 20876- 0018 16 Nov, 2017 Acquired hypothyroidism E03.9 [facility] [id number] [place] [address] 40121- 1240 Aug, Acute non-recurrent frontal sinusitis J01.10 [facility] [id number] [place] [address] 84117- 9369 07 Aug, 2017 [facility] [id number] [place] [address] 33118- 3775 07 Aug, 2017 Acute rhinosinusitis J01.90 [place] [address] 19568- 2656 Aug, [place] [id number] [place] [address] 84218- 4667 Jul, Acquired hypothyroidism E03.9 [facility] [id number] [place] [address] 86796- 0285 Jun, [facility] [id number] [place] [address] 30289- 2138 May, Screening breast examination Z12.31 ; Skin tag L91.8 and Routine gynecological examination Z01.419 [place] [id number] [place] [address] 95624- 8608 May, Hyperlipidemia, unspecified hyperlipidemia type E78.5 ; Acquired hypothyroidism E03.9 and Skin tag L91.8 [facility] [id number] [place] [address] 17258- 9425 Mar, [facility] [id number] [place] [address] 23468- 7630 Mar, [facility] [id number] [place] [address] 78467 -6409 February, Dysuria R30.0 and Acute cystitis with hematuria N30.01 [facility] [address] 27765- 3873 Oct, [facility] [id number] [place] [address] 55578- 4238 Sep, Hyperlipidemia, unspecified hyperlipidemia type E78.5 [facility] [id number] [place] [address] 13773- 9906 Aug, Acquired hypothyroidism E03.9 and General medical exam Z00.00 [facility] [id number] [place] [address] 11428- 2206 Aug, [facility] [id number] [place] [address] 64448- 7757 Aug, [facility] [id number] [place] [address] 53812 -0627 Dec, Allergic rhinitis J30.9 [facility] [id number] [place] [address] 55126- 8813 Dec, [facility] [id number] [place] [address] 53732- 2935 Dec, Acute non-recurrent maxillary sinusitis J01.00 [facility] [id number] [place] [address] 89341- 7759 Jul, Other specified hypothyroidism E03.8 [facility] [id number] [place] [address] 93801- 2942 February, [facility] [id number] [place] [address] 24821- 9903 February, Absence of menstruation 626.0 [facility] [id number] [place] [address] 54087- 3442 Jan, [facility] [id number] [place] [address] 20300- 5502 Jan, [facility] [id number] [place] [address] 92680- 9973 Dec, [facility] [id number] [place] [address] 54868- 2727 Dec, [facility] [place] [facility] [address] [id number] [place] [address]- 5477 Aug, [facility] [place] [facility] [address] [id number] [place] [address]- 3938 Aug, [facility] [place] [facility] [address] [facility] [id number] [place] [address]- 7961 Jul, [facility] [place] [facility] [address] [id number] [place] [address]- 5648 Jul, [facility] [place] [facility] [address] [id number] [place] [address]- 9928 Jun, [facility] [place] [facility] [address] [id number] [place] [address]- 6754 Jun, [facility] [place] [facility] [address] [facility] [id number] [place] [address]- 8776 Jun, [facility] [place] [facility] [address] [id number] [place] [address]- 2506 Jun, [facility] [place] [facility] [address] [id number] [place] [address]- 1845 Jun, [facility] [place] [facility] [address] [facility] [id number] [place] [address]- 0453 May, [facility] [place] [facility] [address] [id number] [place] [address]- 9187 May, [facility] [place] [facility] [address] [id number] [address] 0391 Oct, [facility] [place] [facility] [address] [id number] [place] [address]- 4295 Oct, [facility] [place] [facility] [address] [facility] [id number] [place] [address]- 1073 Oct, [facility] [place] [facility] [address] [facility] [id number] [place] [address]- 0600 Oct, [facility] [place] [facility] [address] [id number] [place] [address]- 7544 Oct, [facility] [place] [facility] [address] [id number] [place] [address]- 8146 Oct, [facility] [place] [facility] [address] [id number] [place] [address]- 8346 Oct, [facility] [place] [facility] [address] [id number] [place] [address]- 9579 Oct, [facility] [place] [facility] [address] [id number] [place] [address]- 9206 Oct, [facility] [place] [facility] [address] [id number] [place] [address]- 9846 Oct, [facility] [place] [facility] [address] [id number] [place] [address]- 1939 Oct, [facility] [place] [facility] [address] [id number] [place] [address]- 9184 Oct, [facility] [place] [facility] [address] [id number] [place] [address]- 8949 Sep, [facility] [place] [facility] [address] [id number] [place] [address]- 6539 Sep, [facility] [place] [facility] [address] [id number] [place] [address]- 6325 Apr, [facility] [place] [facility] [address] [id number] [place] [address]- 4381 Mar, [facility] [place] [facility] [address] [id number] [place] [address]- 8759 Mar, [facility] [place] [facility] [address] [id number] [place] [address]- 9098 Mar, [facility] [place] [facility] [address] [id number] [place] [address]- 9246 February, [facility] [place] [facility] [address] [id number] [place] [address]- 7664 16 Oct, 2012 [facility] [place] [facility] [address] [id number] [place] [address]- 5574 Oct, [facility] [place] [facility] [address] [id number] [place] [address]- 2148 Oct, [facility] [place] [facility] [address] [id number] [place] [address]- 5433 Oct, [facility] [place] [facility] [address] [id number] [place] [address]- 5719 Sep, [facility] [place] [facility] [address] [id number] [place] [address]- 3978 Sep, [facility] [place] [facility] [address] [id number] [place] [address]- 5808 May, [facility] [place] [facility] [address] [id number] [place] [address]- 9799 May, [facility] [place] [facility] [address] [id number] [place] [address]- 6082 May, [facility] [place] [facility] [address] [id number] [place] [address]- 9150 May, [facility] [place] [facility] [address] [id number] [place] [address]- 8918 May, [facility] [place] [facility] [address] [id number] [place] [address]- 9308 May, [facility] [place] [facility] [address] [id number] [place] [address]- 4658 Apr, [facility] [place] [facility] [address] [id number] [place] [address]- 2643 Apr, [facility] [place] [facility] [address] [id number] [place] [address]- 2496 Mar, [facility] [place] [facility] [address] [id number] [place] [address]- 6010 Mar, [facility] [place] [facility] [address] [id number] [place] [address] 2546 February, [facility] [address] [id number] [place] [address]- 6456 February, [facility] [place] [facility] [address] [id number] [place] [address] 2546 28 Nov, 2011 [facility] [place] [facility] [address] [id number] [place] [address]- 3596 20 Nov, 2011 [facility] [place] [facility] [address] [id number] [place] [address]- 2546 17 Nov, 2011 [facility] [address] [id number] [place] [address]- 4966 14 Nov, 2011 [facility] [place] [facility] [address] [facility] [id number] [place] [address]- 3996 10 Nov, 2011 [facility] [address] [facility] [id number] [place] [address]- 3014 18 Jul, 2011 [facility] [address] [id number] [place] [address]- 8066 12 Nov, 2010 [facility] [place] [facility] [address] [facility] [id number] [place] [address]- 4953 15 Sep, 2010 [facility] [address] [facility] [id number] [place] [address]- 6145 10 Sep, 2010 [facility] [place] [facility] [address] [facility] [id number] [place] [address]- 3336 13 Jul, 2010 [facility] [place] [facility] [address] [id number] [place] [address] 2548 16 Dec, 2009 [facility] [place] [facility] [address] [id number] [place] [address] 2546 17 Aug, 2009 [facility] [place] [facility] [address] [facility] [id number] [place] [address]- 2546 13 Aug, 2009 [facility] [place] [facility] [address] [facility] [id number] [place] [address] 2546 Aug, [facility] [address] [facility] [id number] [place] [address]- 2546 Jul, [facility] [address] [facility] [id number] [place] [address]- 2546 Apr, IMMUNIZATIONS No Known Immunizations SOCIAL HISTORY Never Assessed REASON FOR VISIT pt c/o low back pain. She states that usually when her low back hurts its a kidney infection or kidney stone. She states that she had a burning sensation when she went to the bathroom once. BARBARA Keith PLAN OF CARE Activity Details Follow Up if not improving or regular follow up with pcp Reason: Pending Test CULTURE, URINE VITAL SIGNS Height 64.5 in 2018-08-02 Weight 143.3 lbs 2018-08-02 Temperature 97.7 degrees Fahrenheit 2018-08-02 Heart Rate 83 bpm 2018-08-02 Respiratory Rate 18 2018-08-02 BMI 24.21 kg/m2 2018-08-02 Blood pressure systolic 92 mmHg 2018-08-02 Blood pressure diastolic 62 mmHg 2018-08-02 MEDICATIONS Medication Instructions Dosage Frequency Start Date End Date Duration Status Levothyroxine Sodium 100 MCG Orally Once a day 1 tablet 24h Active Macrobid 100 mg Orally every 12 hrs 1 capsule with food 12h Jul, Jul, 5 days Active Ibuprofen 200 MG Orally Three times a day 1 tablet with food or milk as needed 8h Active Pravastatin Sodium 20 mg Orally Once a day 1 tablet 24h Jun, 30 day(s) Active RESULTS Name Result Date Reference Range UA LONG DIP (IN HOUSE) 2018-08-02 Lot # [id number] Exp date 04/2019 Clarity turbid Color brown Odor mild GLU neg SAL[place]ON neg KET neg SG >=1.030 BLO trace pH 5.5 Protein neg URO 0.2 NIT POSITIVE PREETI NEG Lot # Exp date PROCEDURES Procedure Date Ordered Result Body Site URINALYSIS, AUTO, W/O SCOPE Aug 02, 2018 URINE CULTURE/COLONY COUNT Aug 02, 2018 INSTRUCTIONS MEDICATIONS ADMINISTERED No Known Medications MEDICAL (GENERAL) HISTORY Type Description Date Medical History Hypothyroidism Dx at [facility] was born without a thyroid Medical History 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
--- OUTSIDE RECORDS SUMMARY | 2019-02-11 13:52 | XMS REPORT ---
Author Author DIANE RIVERA Organization [facility] Address [address] [place] [address] Care Team Providers Care Insurance Producer Name Role Phone DIANE RIVERA Unavailable PROBLEMS Type Condition ICD9-CM Code CHM22-MS Code Onset Dates Condition Status SNOMED Code Problem Allergic rhinitis, unspecified seasonality, unspecified trigger J30.9 Active 30246406 Problem Cigarette nicotine dependence without complication F17.210 Active 46335425 Problem Hyperlipidemia, unspecified hyperlipidemia type E78.5 Active 10491580 Problem Acquired hypothyroidism E03.9 Active 151282331 ALLERGIES No Information ENCOUNTERS Encounter Location Date Diagnosis [facility] [address] [address] Sep, [facility] [address] [address] Sep, Viral upper respiratory tract infection J06.9 and Allergic rhinitis, unspecified seasonality, unspecified trigger J30.9 [facility] [id number] [place] [address] 67173- 4426 Sep, [facility] [id number] [place] [address] 38827- 6628 Aug, Acute frontal sinusitis, recurrence not specified J01.10 [facility] [id number] [place] [address] 60034- 2211 Jul, [facility] [address] [address]- [address] Jul, Acute cystitis without hematuria N30.00 and Burning with urination R30.0 [facility] [address] [address] Jun, Acquired hypothyroidism E03.9 and Hyperlipidemia, unspecified hyperlipidemia type E78.5 [facility] [address] [address] Jun, Acquired hypothyroidism E03.9 ; Hyperlipidemia, unspecified hyperlipidemia type E78.5 and Cigarette nicotine dependence without complication F17.210 [facility] [address] [address] 17 Jun, 2018 Acquired hypothyroidism E03.9 [facility] [id number] [place] [address] 48158- 8526 February, Acquired hypothyroidism E03.9 [facility] [id number] [place] [address] 07215- 7256 Nov, Acquired hypothyroidism E03.9 [facility] [id number] [place] [address] 43758- 3276 14 Aug, 2017 Acute non-recurrent frontal sinusitis J01.10 [facility] [id number] [place] [address] 33214- 7378 07 Aug, 2017 [facility] [id number] [place] [address] 79075- 1591 07 Aug, 2017 Acute rhinosinusitis J01.90 [facility] [address] [address] 00[address] 04 Aug, 2017 [facility] [address] [address] 9827 Jul, Acquired hypothyroidism E03.9 [facility] [address] [address]- 7[address] Jun, [facility] [id number] [place] [address] 04490- 3366 May, Screening breast examination Z12.31 ; Skin tag L91.8 and Routine gynecological examination Z01.419 [facility] [address] [address] 6074 May, Hyperlipidemia, unspecified hyperlipidemia type E78.5 ; Acquired hypothyroidism E03.9 and Skin tag L91.8 [facility] [id number] [place] [address] 11483- 5747 Mar, [facility] [id number] [place] [address] 64340- 8695 Mar, [facility] [id number] [place] [address] 70766 -3799 February, Dysuria R30.0 and Acute cystitis with hematuria N30.01 [facility] [id number] [place] [address] 15760- 4751 Oct, [facility] [address] [address]- 9169 Sep, Hyperlipidemia, unspecified hyperlipidemia type E78.5 [facility] [id number] [place] [address] 28705- 0445 Aug, Acquired hypothyroidism E03.9 and General medical exam Z00.00 [facility] [id number] [place] [address] 49317- 7022 Aug, [facility] [id number] [place] [address] 05065- 1564 Aug, [facility] [id number] [place] [address] 95334 -6237 Dec, Allergic rhinitis J30.9 [facility] [id number] [place] [address] 33925- 8190 Dec, [facility] [id number] [place] [address] 90647- 7060 Dec, Acute non-recurrent maxillary sinusitis J01.00 [facility] [id number] [place] [address] 58457- 2432 Jul, Other specified hypothyroidism E03.8 [facility] [id number] [place] [address] 12054- 0803 February, [facility] [id number] [address]- 2651 February, Absence of menstruation 626.0 [facility] [address] [id number] [place] [address]- 1309 Jan, [facility] [address] [facility] [id number] [place] [address] Jan, [facility] [address] [id number] [place] [address], [place] [address]- 3758 Dec, [facility] [address] [id number] [place] [address]- 3199 Dec, [facility] [address] [id number] [place] [address]- 8771 Aug, [facility] [address] [facility] [id number] [place] [address]- 4992 Aug, [facility] [address] [facility] [id number] [place] [address]- 4557 Jul, [facility] [address] [facility] [id number] [place] [address]- 5867 Jul, [facility] [id number] [address]- 8982 Jun, [facility] [place] [facility] [address] [id number] [place] [address]- 5290 Jun, [facility] [place] [facility] [address] [id number] [address]- 1376 Jun, [facility] [place] [facility] [address] [facility] [id number] [place] [address]- 6617 Jun, [facility] [place] [facility] [address] [facility] [id number] [place] [address]- 2162 Jun, [facility] [place] [facility] [address] [facility] [id number] [address] May, [facility] [place] [facility] [address] [facility] [id number] [address]- 1892 May, [facility] [address] [id number] [place] [address]- 0504 Oct, [facility] [place] [facility] [address] [id number] [place] [address]- 4592 Oct, [facility] [place] [facility] [address] [id number] [place] [address]- 1044 Oct, [facility] [place] [facility] [address] [id number] [place] [address]- 4258 Oct, [facility] [place] [facility] [address] [id number] [place] [address]- 4784 Oct, [facility] [place] [facility] [address] [id number] [place] [address]- 6314 Oct, [facility] [place] [facility] [address] [id number] [place] [address]- 8666 Oct, [facility] [place] [facility] [address] [id number] [place] [address]- 4138 Oct, [facility] [place] [facility] [address] [id number] [place] [address]- 1058 Oct, [facility] [place] [facility] [address] [id number] [place] [address]- 7430 Oct, [facility] [place] [facility] [address] [id number] [place] [address]- 9823 Oct, [facility] [place] [facility] [address] [id number] [place] [address]- 3127 Oct, [facility] [place] [facility] [address] [id number] [place] [address]- 5305 Sep, [facility] [place] [facility] [address] [id number] [place] [address]- 4472 Sep, [facility] [place] [facility] [address] [id number] [place] [address]- 5111 Apr, [facility] [place] [facility] [address] [id number] [place] [address]- 3562 28 Mar, 2013 [facility] [address] [id number] [place] [address]- 1056 18 Mar, 2013 [facility] [place] [facility] [address] [id number] [place] [address]- 4986 13 Mar, 2013 [facility] [address] [id number] [place] [address]- 9881 February, [facility] [address] [id number] [place] [address]- 8438 16 Oct, 2012 [facility] [address] [id number] [place] [address]- 7341 Oct, [facility] [address] [id number] [place] [address]- 2409 Oct, [facility] [address] [id number] [place] [address]- 5838 Oct, [facility] [address] [id number] [place] [address]- 5845 Sep, [facility] [address] [id number] [place] [address]- 5945 Sep, [facility] [address] [id number] [place] [address]- 9676 May, [facility] [address] [id number] [place] [address]- 7968 May, [facility] [address] [id number] [place] [address]- 0324 May, [facility] [place] [facility] [address] [id number] [place] [address]- 2523 May, [facility] [address] [id number] [place] [address]- 1476 May, [facility] [address] [id number] [place] [address]- 6416 May, [facility] [place] [facility] [address] [id number] [place] [address]- 6043 Apr, [facility] [place] [facility] [address] [id number] [place] [address]- 7216 Apr, [facility] [place] [facility] [address] [id number] [place] [address]- 1816 Mar, [facility] [place] [facility] [address] [id number] [place] [address]- 5276 Mar, [facility] [place] [facility] [address] [id number] [place] [address]- 0410 February, [facility] [place] [facility] [address] [id number] [place] [address]- 8126 February, [facility] [place] [facility] [address] [id number] [place] [address]- 5876 Nov, [facility] [place] [facility] [address] [id number] [place] [address]- 9540 Nov, [facility] [place] [facility] [address] [id number] [place] [address]- 5286 Nov, [facility] [place] [facility] [id number] [place] [address]- 7016 14 Nov, 2011 [facility] [place] [facility] [address] [id number] [place] [address]- 3864 Nov, [facility] [place] [facility] [address] [id number] [place] [address]- 4466 Jul, [facility] [place] [facility] [address] [id number] [place] [address]- 1876 Nov, [facility] [place] [facility] [address] [facility] [id number] [place] [address]- 6026 Sep, [facility] [place] [facility] [address] [id number] [place] [address]- 0406 Sep, [facility] [place] [facility] [id number] [address]- 6346 13 Jul, 2010 [facility] [id number] [address]- 6587 16 Dec, 2009 [facility] [address] [address]- 6989 17 Aug, 2009 [facility] [address] [id number] [address]- 8805 Aug, [facility] [address] [address]- 1677 Aug, [facility] [address] [address]- 8670 Jul, [facility] [id number] [address]- 4440 Apr, IMMUNIZATIONS No Known Immunizations SOCIAL HISTORY Never Assessed REASON FOR VISIT Requests return call PLAN OF CARE VITAL SIGNS MEDICATIONS Unknown Medications RESULTS No Results PROCEDURES No Known procedures INSTRUCTIONS MEDICATIONS ADMINISTERED No Known Medications MEDICAL (GENERAL) HISTORY Type Description Date Medical History Hypothyroidism Dx at [employer] was born without a thyroid Medical History 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
--- OUTSIDE RECORDS SUMMARY | 2019-02-11 13:53 | XMS REPORT ---
Author Author STACI BURNETT [facility] Address [address] [place] [address] Care Team Providers Care Corporate Law Assistant Name Role Phone STACI BURNETT Unavailable PROBLEMS Type Condition ICD9-CM Code MSA81-EF Code Onset Dates Condition Status SNOMED Code Problem Hyperlipidemia, unspecified hyperlipidemia type E78.5 Active 52991885 Problem Acquired hypothyroidism E03.9 Active 851182394 Problem General medical exam Z00.00 Active 020609805 ALLERGIES No Information ENCOUNTERS Encounter Location Date Diagnosis [facility] [id number] [place] [address] 02759- 7935 February, Acquired hypothyroidism E03.9 [facility] [address] [place] [address] 59965- 9582 Nov, Acquired hypothyroidism E03.9 [facility] [address] [place] [address] 33457- 9129 Aug, Acute non-recurrent frontal sinusitis J01.10 [facility] [address] [address]- 4816 Aug, [facility] [id number] [place] [address] 84374- 4009 Aug, Acute rhinosinusitis J01.90 [facility] [id number] [place] [address] 72721- 9015 Aug, [facility] [address] [place] [address] 76059- 2106 Jul, Acquired hypothyroidism E03.9 [facility] [address] [address]- 5283 Jun, [facility] [id number] [place] [address] 52906- 4906 May, Screening breast examination Z12.31 ; Skin tag L91.8 and Routine gynecological examination Z01.419 [place] [id number] [place] [address] 57568- 6198 May, Hyperlipidemia, unspecified hyperlipidemia type E78.5 ; Acquired hypothyroidism E03.9 and Skin tag L91.8 [place] [address] [address]- 0731 Mar, [place] [address] [address]26- 2031 Mar, [facility] [address] [address] February, Dysuria R30.0 and Acute cystitis with hematuria N30.[address] [address]- 3618 Oct, [address] [address]- 4901 Sep, Hyperlipidemia, unspecified hyperlipidemia type E78.5 [id number] [place] [address] 14314- 1175 Aug, Acquired hypothyroidism E03.9 and General medical exam Z00.00 [address] [id number] [place] [address] 32468- 3459 Aug, [place] [id number] [place] [address] 37639- 0113 Aug, [facility] [address] [place] [id number] [place] [address] 40937 -8521 Dec, Allergic rhinitis J30.9 [place] [id number] [place] [address] 33017- 5607 Dec, [place] [id number] [place] [address] 38522- 1433 Dec, Acute non-recurrent maxillary sinusitis J01.00 [facility] [address] [address]- 2133 Jul, Other specified hypothyroidism E03.8 [facility] [address] 6489 February, [facility] [id number] [place] [address] 414433- 3389 February, Absence of menstruation 626.0 [facility] [address] [address]- 2884 Jan, [facility] [id number] [place] [address] 69140- 4279 Jan, [facility] [address] [id number] [address]- 1621 Dec, [facility] [id number] [place] [address] 20509- 3664 Dec, [facility] [address] [address]- 8088 Aug, [facility] [address], [place] [address]- 5886 Aug, [facility] [address], [place] [address]- 9082 Jul, [facility] [address] [address]- 2964 Jul, [facility] [address], [place] [address]- 2548 Jun, [facility] [id number] [address] 2546 Jun, [facility] [address], [place] [address]- 2546 Jun, [facility] [address] [address]- 3852 05 Jun, 2014 [facility] [place] [facility] [address] [id number] [place] [address]- 7123 Jun, [facility] [place] [facility] [address] [id number] [place] [address]- 6109 May, [facility] [place] [facility] [address] [id number] [place] [address]- 9163 May, [facility] [place] [facility] [address] [id number] [place] [address]- 5191 Oct, [facility] [place] [facility] [address] [id number] [place] [address]- 3362 Oct, [facility] [place] [facility] [address] [id number] [place] [address]- 4805 Oct, [facility] [place] [facility] [address] [id number] [place] [address]- 5155 Oct, [facility] [place] [facility] [address] [id number] [place] [address]- 2637 Oct, [facility] [place] [facility] [address] [id number] [place] [address]- 9965 Oct, [facility] [place] [facility] [address] [id number] [place] [address]- 5966 Oct, [facility] [place] [facility] [address] [id number] [place] [address]- 2661 Oct, [facility] [place] [facility] [address] [id number] [address]- 4234 Oct, [facility] [place] [facility] [address] [id number] [place] [address]- 8628 Oct, [facility] [place] [facility] [address] [id number] [place] [address]- 7117 Oct, [facility] [place] [facility] [address] [id number] [place] [address]- 4761 Oct, [facility] [place] [facility] [address] [id number] [place] [address]- 3783 13 Sep, 2013 [facility] [address] [id number] [place] [address]- 5036 Sep, [facility] [place] [facility] [address] [id number] [place] [address]- 0486 Apr, [facility] [address] [id number] [place] [address]- 9496 Mar, [facility] [place] [facility] [address] [id number] [place] [address]- 8127 Mar, [facility] [address] [id number] [place] [address]- 0221 Mar, [facility] [place] [facility] [address] [id number] [place] [address] 2546 February, [facility] [address] [id number] [place] [address]- 3123 Oct, [facility] [address] [id number] [place] [address]- 3993 Oct, [facility] [address] [id number] [place] [address]- 5662 Oct, [facility] [address] [id number] [place] [address]- 4476 Oct, [facility] [address] [id number] [place] [address]- 5855 14 Sep, 2012 [facility] [place] [facility] [address] [id number] [place] [address]- 2540 Sep, [facility] [place] [facility] [address] [id number] [place] [address]- 2496 May, [facility] [place] [facility] [address] [id number] [place] [address] 2546 May, [facility] [place] [facility] [address] [id number] [place] [address] May, [facility] [place] [facility] [address] [id number] [place] [address] May, [facility] [place] [facility] [address] [id number] [place] [address] May, [facility] [place] [facility] [address] [id number] [place] [address] May, [facility] [place] [facility] [address] [id number] [place] [address] Apr, [facility] [place] [facility] [address] [id number] [place] [address] Apr, [facility] [place] [facility] [address] [id number] [place] [address] Mar, [facility] [place] [facility] [address] [id number] [place] [address] Mar, [facility] [place] [facility] [address] [id number] [place] [address] February, [facility] [place] [facility] [address] [id number] [place] [address] February, [facility] [place] [facility] [address] [id number] [place] [address] Nov, [facility] [place] [facility] [address] [id number] [place] [address] Nov, [facility] [place] [facility] [address] [id number] [place] [address] 17 Nov, 2011 [facility] [place] [facility] [address] [id number] [place] [address] 14 Nov, 2011 [facility] [place] [facility] [address] [id number] [place] [address] 10 Nov, 2011 [facility] [place] [facility] [address] [id number] [place] [address] Jul, [facility] [place] [facility] [address] [id number] [address] 12 Nov, 2010 [facility] [id number] [address] 15 Sep, 2010 [facility] [id number] [address] 10 Sep, 2010 [facility] [id number] [address] 13 Jul, 2010 [facility] [id number] [address] 16 Dec, 2009 [facility] [id number] [address] 17 Aug, 2009 [facility] [id number] [address] Aug, [facility] [id number] [address] Aug, [facility] [id number] [address] Jul, [facility] [id number] [address] Apr, IMMUNIZATIONS No Known Immunizations SOCIAL HISTORY Never Assessed REASON FOR VISIT Repository Medication PLAN OF CARE VITAL SIGNS MEDICATIONS Medication Instructions Dosage Frequency Start Date End Date Duration Status Levothyroxine Sodium 88 MCG Orally Once a day 1 tablet 24h 90 days Active RESULTS No Results PROCEDURES No Known procedures INSTRUCTIONS MEDICATIONS ADMINISTERED No Known Medications MEDICAL (GENERAL) HISTORY Type Description Date Medical History Hypothyroidism Dx at [facility] was born without a thyroid Medical History 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
--- OUTSIDE RECORDS SUMMARY | 2019-02-11 13:53 | XMS REPORT ---
Author Author DIANE RIVERA [facility] Address [address] [place] [address] Care Team Providers Care Lie Detector Operator Name Role Phone MIGUEL DIANE Unavailable PROBLEMS Type Condition ICD9-CM Code [id number] Code Onset Dates Condition Status SNOMED Code Problem Cigarette nicotine dependence without complication F17.210 Active 18255226 Problem Hyperlipidemia, unspecified hyperlipidemia type E78.5 Active 91186428 Problem Acquired hypothyroidism E03.9 Active 899736904 ALLERGIES No Information ENCOUNTERS Encounter Location Date Diagnosis [facility] [id number] [place] [address] 06221- 5326 Jun, Acquired hypothyroidism E03.9 and Hyperlipidemia, unspecified hyperlipidemia type E78.5 [facility] [address] [place] [address] 20895- 5024 Jun, Acquired hypothyroidism E03.9 ; Hyperlipidemia, unspecified hyperlipidemia type E78.5 and Cigarette nicotine dependence without complication F17.210 [facility] [address] [place] [address] 05567- 1400 Jun, Acquired hypothyroidism E03.9 [facility] [address] [address] 0839 February, Acquired hypothyroidism E03.9 [facility] [address] [place] [address] 80695- 5344 Nov, Acquired hypothyroidism E03.9 [facility] [id number] [place] [address] 21939- 1201 14 Aug, 2017 Acute non-recurrent frontal sinusitis J01.10 [facility] [address] [address]- 3868 07 Aug, 2017 [facility] [id number] [place] [address] 66705- 9320 07 Aug, 2017 Acute rhinosinusitis J01.90 [place] [address] 27231- 2580 Aug, [place] [id number] [place] [address] 36969- 7273 Jul, Acquired hypothyroidism E03.9 [facility] [address] 7[address]- 6237 08 Jun, 2017 [place] [id number] [place] [address] 74038- 5182 May, Screening breast examination Z12.31 ; Skin tag L91.8 and Routine gynecological examination Z01.419 [place] [id number] [place] [address] 74676- 6201 May, Hyperlipidemia, unspecified hyperlipidemia type E78.5 ; Acquired hypothyroidism E03.9 and Skin tag L91.8 [place] [id number] [place] [address] 47685- 8432 Mar, [place] [id number] [place] [address] 58554- 1556 Mar, [facility] [id number] [place] [address] 83829 -1225 February, Dysuria R30.0 and Acute cystitis with hematuria N30.01 [facility] [id number] [place] [address] 48695- 9619 Oct, [facility] [id number] [place] [address] 01776- 7839 Sep, Hyperlipidemia, unspecified hyperlipidemia type E78.5 [place] [id number] [place] [address] 63925- 0699 Aug, Acquired hypothyroidism E03.9 and General medical exam Z00.00 [place] [id number] [place] [address] 18239- 6491 Aug, [facility] [address], [place] [address] 1935 Aug, [facility] [address] [place] [address] 64547 -4093 Dec, Allergic rhinitis J30.9 [facility] [id number] [place] [address] 67367- 4434 17 Dec, 2015 [facility] [id number] [place] [address] 86821- 3948 15 Dec, 2015 Acute non-recurrent maxillary sinusitis J01.00 [facility] [id number] [place] [address] 41789- 1718 Jul, Other specified hypothyroidism E03.8 [facility] [id number] [place] [address] 90620- 1633 February, [facility] [id number] [place] [address] 25445- 6656 February, Absence of menstruation 626.0 [facility] [id number] [place] [address] 73671- 4500 Jan, [facility] [id number] [place] [address] 47182- 6359 Jan, [facility] [address] [address] 9642 Dec, [facility] [id number] [place] [address] 79958- 5364 Dec, [facility] [address] [address] 4069 Aug, [facility] [id number] [place] [address] 60817- 9900 Aug, [facility] [address], [place] [address]- 5410 Jul, [facility] [id number] [place] [address]- 7476 Jul, [facility] [address] [id number] [place] [address]- 5256 Jun, [facility] [place] [facility] [address] [id number] [place] [address]- 0906 Jun, [facility] [address] [id number] [place] [address]- 6183 Jun, [facility] [place] [facility] [address] [id number] [place] [address]- 0362 Jun, [facility] [place] [facility] [address] [id number] [place] [address]- 7481 Jun, [facility] [place] [facility] [address] [id number] [place] [address]- 3255 May, [facility] [address] [id number] [place] [address]- 9128 May, [facility] [address] [id number] [place] [address]- 9830 Oct, [facility] [place] [facility] [address] [id number] [place] [address]- 9296 Oct, [facility] [address] [id number] [place] [address]- 3717 Oct, [facility] [place] [facility] [address] [id number] [place] [address]- 1155 Oct, [facility] [place] [facility] [address] [id number] [place] [address]- 5401 Oct, [facility] [place] [facility] [address] [id number] [place] [address]- 5316 Oct, [facility] [place] [facility] [address] [id number] [place] [address]- 7143 Oct, [facility] [place] [facility] [address] [id number] [place] [address]- 5121 Oct, [facility] [place] [facility] [address] [id number] [place] [address]- 7643 Oct, [facility] [address] [id number] [place] [address]- 0788 Oct, [facility] [place] [facility] [address] [id number] [place] [address]- 7244 Oct, [facility] [address] [id number] [place] [address]- 2884 Oct, [facility] [address] [id number] [place] [address]- 8213 Sep, [facility] [place] [facility] [address] [id number] [place] [address]- 2490 Sep, [facility] [address] [id number] [place] [address]- 7794 Apr, [facility] [address] [id number] [place] [address]- 6359 Mar, [facility] [place] [facility] [address] [id number] [place] [address]- 8089 Mar, [facility] [place] [facility] [address] [id number] [place] [address]- 5082 Mar, [facility] [place] [facility] [address] [id number] [place] [address]- 8737 February, [facility] [place] [facility] [address] [id number] [place] [address]- 1672 Oct, [facility] [place] [facility] [address] [id number] [place] [address]- 6972 Oct, [facility] [place] [facility] [address] [id number] [place] [address]- 6241 Oct, [facility] [place] [facility] [address] [id number] [place] [address]- 9019 Oct, [facility] [place] [facility] [address] [id number] [place] [address]- 4604 Sep, [facility] [place] [facility] [address] [id number] [place] [address]- 2470 Sep, [facility] [place] [facility] [address] [id number] [place] [address]- 3571 May, [facility] [place] [facility] [address] [id number] [place] [address]- 4054 May, [facility] [place] [facility] [address] [id number] [place] [address]- 7000 May, [facility] [place] [facility] [address] [id number] [place] [address]- 4611 May, [facility] [place] [facility] [address] [id number] [place] [address]- 8338 May, [facility] [place] [facility] [address] [id number] [place] [address]- 7080 May, [facility] [place] [facility] [address] [id number] [place] [address]- 5907 Apr, [facility] [place] [facility] [address] [id number] [place] [address]- 8828 Apr, [facility] [place] [facility] [address] [id number] [place] [address]- 9471 Mar, [facility] [place] [facility] [address] [id number] [place] [address]- 9234 Mar, [facility] [place] [facility] [address] [id number] [place] [address]- 5806 February, [facility] [place] [facility] [address] [id number] [place] [address]- 6762 February, [facility] [place] [facility] [address] [id number] [place] [address]- 6593 Nov, [facility] [place] [facility] [address] [id number] [place] [address]- 4070 Nov, [facility] [place] [facility] [address], [place] [address]- 4556 17 Nov, 2011 [facility] [address] [facility] [id number] [address]- 1936 [address], [address] [facility] [id number] [address]- 3766 [address], [address] [facility] [address], [place] [address]- 3449 18 Jul, 2011 [facility] [address] [facility] [id number] [address]- 8220 12 [address], 2010 [facility] [address] [place] [address] 89065- 3536 15 Sep, 2010 [facility] [address] 2706 Sep, [facility] [address], [place] [address]- 9604 13 Jul, 2010 [facility] [address], [place] [address]- 1429 16 Dec, 2009 [facility] [address]- 5678 17 Aug, 2009 [facility] [address], [place] [address]- 1683 13 [address], [address] [facility] [address], [place] [address]- 3276 Aug, [facility] [id number] 6750 Jul, [facility] [address] 3432 Apr, IMMUNIZATIONS No Known Immunizations SOCIAL HISTORY Never Assessed REASON FOR VISIT Lab results PLAN OF CARE VITAL SIGNS MEDICATIONS Medication Instructions Dosage Frequency Start Date End Date Duration Status Pravastatin Sodium 20 mg Orally Once a day 1 tablet 24h 25 Jun, 2018 30 day(s) Active Levothyroxine Sodium 100 MCG Orally Once a day 1 tablet 24h Active RESULTS No Results PROCEDURES No Known procedures INSTRUCTIONS MEDICATIONS ADMINISTERED No Known Medications MEDICAL (GENERAL) HISTORY Type Description Date Medical History Hypothyroidism Dx at [facility] was born without a thyroid Medical History 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
--- OUTSIDE RECORDS SUMMARY | 2019-02-11 13:53 | XMS REPORT ---
Author Author DIANE RIVERA [facility] Address [address] [place] [address] Care Team Providers Care Transitional Care Nurse Name Role Phone MARYANN RIVERATA Unavailable PROBLEMS Type Condition ICD9-CM Code MRQ95-WV Code Onset Dates Condition Status SNOMED Code Problem Cigarette nicotine dependence without complication F17.210 Active 31599732 Problem Hyperlipidemia, unspecified hyperlipidemia type E78.5 Active 98165874 Problem Acquired hypothyroidism E03.9 Active 437629787 ALLERGIES No Information ENCOUNTERS Encounter Location Date Diagnosis [facility] [id number] [place] [address] 22519- 6666 Jul, [facility] [id number] [place] [address] 55574- 0418 Jul, Burning with urination R30.0 and Acute cystitis without hematuria N30.00 [facility] [id number] [place] [address] 94476- 2000 Jun, Acquired hypothyroidism E03.9 and Hyperlipidemia, unspecified hyperlipidemia type E78.5 [facility] [address] [address]- 9654 Jun, Acquired hypothyroidism E03.9 ; Hyperlipidemia, unspecified hyperlipidemia type E78.5 and Cigarette nicotine dependence without complication F17.210 [facility] [address] [address]- 4851 Jun, Acquired hypothyroidism E03.9 [facility] [address] [place] [address] 00729- 5906 February, Acquired hypothyroidism E03.9 [facility] [address] [address]- 0324 Nov, Acquired hypothyroidism E03.9 [place] [id number] [place] [address] 04392- 4826 14 Aug, 2017 Acute non-recurrent frontal sinusitis J01.10 [facility] [id number] [place] [address] 28938- 4725 07 Aug, 2017 [facility] [id number] [place] [address] 38025- 2204 Aug, Acute rhinosinusitis J01.90 [facility] [id number] [place] [address] 17158- 4635 Aug, [place] [address] 54794- 0783 Jul, Acquired hypothyroidism E03.9 [place] [id number] [place] [address] 16598- 4195 Jun, [place] [address] 45174- 0699 May, Screening breast examination Z12.31 ; Skin tag L91.8 and Routine gynecological examination Z01.419 [place] [id number] [place] [address] 04318- 0464 May, Hyperlipidemia, unspecified hyperlipidemia type E78.5 ; Acquired hypothyroidism E03.9 and Skin tag L91.8 [place] [id number] [place] [address] 66606- 2992 Mar, [facility] [id number] [place] [address] 80103- 7052 Mar, [facility] [id number] [place] [address] 24942 -7990 February, Dysuria R30.0 and Acute cystitis with hematuria N30.01 [facility] [id number] [place] [address] 62080- 5217 Oct, [facility] [id number] [place] [address] 39267- 6648 Sep, Hyperlipidemia, unspecified hyperlipidemia type E78.5 [facility] [address] [address]- 8316 Aug, Acquired hypothyroidism E03.9 and General medical exam Z00.00 [facility] [address] [address]- 3760 07 Aug, 2016 [facility] [id number] [place] [address] 20371- 6393 Aug, [facility] [address] [place] [address] 72283 -8018 Dec, Allergic rhinitis J30.9 [facility] [id number] [place] [address] 72674- 1868 Dec, [facility] [id number] [place] [address] 53611- 5004 Dec, Acute non-recurrent maxillary sinusitis J01.00 [facility] [id number] [place] [address] 84237- 4863 Jul, Other specified hypothyroidism E03.8 [facility] [id number] [place] [address] 90934- 5929 February, [facility] [id number] [place] [address] 67675- 9606 February, Absence of menstruation 626.0 [facility] [id number] [place] [address] 96250- 9612 14 Jan, 2015 [facility] [id number] [place] [address] 00916- 1827 Jan, [facility] [id number] [place] [address] 47613- 8468 Dec, [facility] [address] [place] [address] 45223- 9212 Dec, [facility] [id number] [place] [address] 00134- 1673 Aug, [facility] [place] [facility] [address] [id number] [place] [address]- 0791 Aug, [facility] [place] [facility] [address] [id number] [place] [address]- 7722 Jul, [facility] [place] [facility] [address] [id number] [place] [address]- 6348 Jul, [facility] [place] [facility] [address] [id number] [place] [address]- 6075 Jun, [facility] [place] [facility] [address] [id number] [place] [address]- 3031 Jun, [facility] [place] [facility] [address] [id number] [place] [address]- 2191 Jun, [facility] [place] [facility] [address] [id number] [place] [address]- 7598 Jun, [facility] [place] [facility] [address] [id number] [place] [address]- 2766 Jun, [facility] [place] [facility] [address] [id number] [place] [address]- 2080 May, [facility] [place] [facility] [address] [id number] [place] [address]- 9219 May, [facility] [place] [facility] [address] [id number] [place] [address]- 8579 Oct, [facility] [place] [facility] [address] [id number] [place] [address]- 6849 Oct, [facility] [place] [facility] [address] [id number] [place] [address]- 9051 Oct, [facility] [place] [facility] [address] [id number] [place] [address]- 3454 Oct, [facility] [place] [facility] [address] [id number] [place] [address]- 1953 Oct, [facility] [place] [facility] [address] [id number] [place] [address]- 6634 Oct, [facility] [address] [id number] [place] [address]- 8569 Oct, [facility] [place] [facility] [address] [id number] [place] [address]- 0755 Oct, [facility] [address] [id number] [place] [address]- 8135 Oct, [facility] [place] [facility] [address] [id number] [place] [address]- 3186 Oct, [facility] [place] [facility] [address] [id number] [place] [address]- 9264 Oct, [facility] [place] [facility] [address] [id number] [place] [address]- 7289 Oct, [facility] [address] [id number] [place] [address]- 9441 Sep, [facility] [place] [facility] [address] [id number] [place] [address]- 7749 Sep, [facility] [place] [facility] [address] [id number] [place] [address]- 3318 Apr, [facility] [place] [facility] [address] [id number] [place] [address]- 3954 Mar, [facility] [place] [facility] [address] [id number] [place] [address]- 9063 Mar, [facility] [place] [facility] [address] [id number] [place] [address]- 0116 Mar, [facility] [place] [facility] [address] [id number] [place] [address]- 9625 February, [facility] [place] [facility] [address] [id number] [place] [address]- 3626 16 Oct, 2012 [facility] [place] [facility] [address] [id number] [place] [address]- 7653 Oct, [facility] [place] [facility] [address] [id number] [place] [address]- 9501 Oct, [facility] [address] [id number] [place] [address]- 6177 Oct, [facility] [place] [facility] [address] [id number] [place] [address]- 6804 Sep, [facility] [place] [facility] [address] [id number] [place] [address]- 4169 Sep, [facility] [address] [id number] [place] [address]- 7907 May, [facility] [place] [facility] [address] [id number] [place] [address]- 1818 May, [facility] [address] [id number] [place] [address]- 9615 May, [facility] [address] [id number] [place] [address]- 5425 May, [facility] [place] [facility] [address] [id number] [place] [address]- 7589 May, [facility] [place] [facility] [address] [id number] [place] [address] May, [facility] [place] [facility] [address] [id number] [place] [address] Apr, [facility] [place] [facility] [address] [id number] [place] [address] Apr, [facility] [place] [facility] [address] [id number] [place] [address] Mar, [facility] [place] [facility] [address] [id number] [place] [address] Mar, [facility] [place] [facility] [address] [id number] [place] [address] February, [facility] [place] [facility] [address] [id number] [place] [address] February, [facility] [place] [facility] [address] [id number] [place] [address] 28 Nov, 2011 [facility] [place] [facility] [address] [id number] [place] [address] 20 Nov, 2011 [facility] [place] [facility] [address] [facility] [id number] [place] [address] 17 Nov, 2011 [facility] [place] [facility] [address] [id number] [place] [address] 14 Nov, 2011 [facility] [address] [id number] [place] [address], [place] [address] 10 Nov, 2011 [facility] [place] [facility] [address] [facility] [id number] [place] [address] 18 Jul, 2011 [facility] [address] [facility] [id number] [place] [address] 12 Nov, 2010 [facility] [place] [facility] [address] [facility] [id number] [place] [address] 15 Sep, 2010 [facility] [place] [facility] [address] [facility] [id number] [place] [address] 10 Sep, 2010 [facility] [place] [facility] [address] [facility] [id number] [place] [address] 13 Jul, 2010 [facility] [place] [facility] [address] [facility] [id number] [place] [address] 16 Dec, 2009 [facility] [place] [facility] [address] [facility] [id number] [place] [address] 17 Aug, 2009 [facility] [place] [facility] [address] [facility] [id number] [place] [address] 13 Aug, 2009 [facility] [place] [facility] [address] [facility] [id number] [place] [address] 13 Aug, 2009 [facility] [place] [facility] [address] [facility] [id number] [place] [address] 28 Jul, 2009 [facility] [place] [facility] [address] [facility] [id number] [place] [address] Apr, IMMUNIZATIONS No Known Immunizations SOCIAL HISTORY Never Assessed REASON FOR VISIT med side effect PLAN OF CARE VITAL SIGNS MEDICATIONS Unknown Medications RESULTS No Results PROCEDURES No Known procedures INSTRUCTIONS MEDICATIONS ADMINISTERED No Known Medications MEDICAL (GENERAL) HISTORY Type Description Date Medical History Hypothyroidism Dx at [facility] was born without a thyroid Medical History 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
--- OUTSIDE RECORDS SUMMARY | 2019-02-11 13:53 | XMS REPORT ---
Author Author JARET WHEATLEY [facility] Address [address] [place] [address] Care Team Providers Care [employer]airer Name Role Phone JARET WHEATLEY Unavailable PROBLEMS Type Condition ICD9-CM Code [id number] Code Onset Dates Condition Status SNOMED Code Problem Cigarette nicotine dependence without complication F17.210 Active 21961750 Problem Hyperlipidemia, unspecified hyperlipidemia type E78.5 Active 79330917 Problem Acquired hypothyroidism E03.9 Active [id number] ALLERGIES No Information ENCOUNTERS Encounter Location Date Diagnosis [facility] [id number] [place] [address] 12961- 1804 Jun, Acquired hypothyroidism E03.9 and Hyperlipidemia, unspecified hyperlipidemia type E78.5 [facility] [id number] [place] [address] 25872- 1616 Jun, Acquired hypothyroidism E03.9 ; Hyperlipidemia, unspecified hyperlipidemia type E78.5 and Cigarette nicotine dependence without complication F17.210 [facility] [address] [address] Jun, Acquired hypothyroidism E03.9 [facility] [address] [address] 8679 February, Acquired hypothyroidism E03.9 [facility] [id number] [place] [address] 39093- 7504 Nov, Acquired hypothyroidism E03.9 [facility] [id number] [place] [address] 26594- 4498 14 Aug, 2017 Acute non-recurrent frontal sinusitis J01.10 [facility] [id number] [address] 4816 07 Aug, 2017 [facility] [id number] [place] [address] 76790- 2703 07 Aug, 2017 Acute rhinosinusitis J01.90 [facility] [id number] [place] [address] 33413- 0088 Aug, [facility] [id number] [place] [address] 86986- 5737 Jul, Acquired hypothyroidism E03.9 [facility] [id number] [place] [address] 91652- 3380 Jun, [facility] [id number] [place] [address] 21202- 0445 May, Screening breast examination Z12.31 ; Skin tag L91.8 and Routine gynecological examination Z01.419 [facility] [id number] [place] [address] 81365- 1038 May, Hyperlipidemia, unspecified hyperlipidemia type E78.5 ; Acquired hypothyroidism E03.9 and Skin tag L91.8 [facility] [id number] [place] [address] 79714- 4906 Mar, [facility] [id number] [place] [address] 77758- 8524 Mar, [facility] [id number] [place] [address] 96949 -1850 February, Dysuria R30.0 and Acute cystitis with hematuria N30.01 [facility] [id number] [place] [address] 33402- 7112 Oct, [facility] [id number] [place] [address] 72990- 2094 Sep, Hyperlipidemia, unspecified hyperlipidemia type E78.5 [facility] [id number] [place] [address] 37889- 2328 Aug, Acquired hypothyroidism E03.9 and General medical exam Z00.00 [facility] [id number] [place] [address] 23709- 9030 Aug, [facility] [address] [address] 2294 Aug, [facility] [id number] [place] [address] 82623 -3719 Dec, Allergic rhinitis J30.9 [facility] [id number] [place] [address] 59989- 4902 17 Dec, 2015 [facility] [id number] [place] [address] 70367- 9439 15 Dec, 2015 Acute non-recurrent maxillary sinusitis J01.00 [facility] [id number] [place] [address] 21304- 2737 08 Jul, 2015 Other specified hypothyroidism E03.8 [facility] [id number] [place] [address] 17390- 7297 February, [facility] [id number] [place] [address] 09177- 4798 February, Absence of menstruation 626.0 [facility] [id number] [place] [address] 55720- 3051 Jan, [facility] [id number] [place] [address] 40178- 6041 Jan, [facility] [address] [address] 4694 Dec, [facility] [id number] [place] [address] 57253- 0930 Dec, [facility] [id number] [address] 7225 Aug, [facility] [id number] [place] [address] 82174- 4719 Aug, [facility] [address] [address] 0319 Jul, [facility] [address] [address] 8217 Jul, [facility] [place] [facility] [address] [id number] [place] [address]- 3318 Jun, [facility] [place] [facility] [address] [id number] [place] [address]- 2646 Jun, [facility] [place] [facility] [address] [id number] [place] [address]- 2496 Jun, [facility] [place] [facility] [address] [id number] [place] [address]- 8352 Jun, [facility] [place] [facility] [address] [id number] [place] [address]- 3174 Jun, [facility] [place] [facility] [address] [id number] [place] [address]- 6665 May, [facility] [place] [facility] [address] [id number] [place] [address]- 8753 May, [facility] [place] [facility] [address] [id number] [place] [address]- 5952 Oct, [facility] [place] [facility] [address] [id number] [place] [address]- 6345 Oct, [facility] [place] [facility] [address] [id number] [place] [address]- 5620 Oct, [facility] [place] [facility] [address] [id number] [place] [address]- 7172 Oct, [facility] [place] [facility] [address] [id number] [place] [address]- 3466 Oct, [facility] [place] [facility] [address] [id number] [place] [address]- 2989 Oct, [facility] [place] [facility] [address] [id number] [place] [address]- 7345 Oct, [facility] [place] [facility] [address] [id number] [place] [address]- 5621 Oct, [facility] [place] [facility] [address] [id number] [place] [address]- 5658 Oct, [facility] [address] [id number] [place] [address]- 0478 Oct, [facility] [address] [id number] [place] [address]- 1259 Oct, [facility] [address] [id number] [place] [address]- 1087 Oct, [facility] [address] [id number] [place] [address]- 2238 Sep, [facility] [address] [id number] [place] [address]- 7939 Sep, [facility] [address] [id number] [place] [address]- 2161 Apr, [facility] [address] [id number] [place] [address]- 0655 Mar, [facility] [address] [id number] [place] [address]- 0504 Mar, [facility] [address] [id number] [place] [address]- 4750 Mar, [facility] [address] [id number] [place] [address]- 3146 February, [facility] [address] [id number] [place] [address]- 7954 Oct, [facility] [place] [facility] [address] [id number] [place] [address]- 8608 Oct, [facility] [place] [facility] [address] [id number] [place] [address]- 2336 Oct, [facility] [place] [facility] [address] [id number] [place] [address]- 3646 Oct, [facility] [address] [id number] [place] [address]- 6536 Sep, [facility] [place] [facility] [address] [id number] [place] [address]- 5601 Sep, [facility] [place] [facility] [address] [id number] [place] [address]- 5155 May, [facility] [place] [facility] [address] [id number] [place] [address]- 0608 May, [facility] [place] [facility] [address] [id number] [place] [address]- 4547 May, [facility] [place] [facility] [address] [id number] [place] [address]- 8439 May, [facility] [place] [facility] [address] [id number] [place] [address]- 2383 May, [facility] [place] [facility] [address] [id number] [place] [address]- 6906 May, [facility] [place] [facility] [address] [id number] [place] [address]- 3260 Apr, [facility] [place] [facility] [address] [id number] [place] [address]- 2773 Apr, [facility] [place] [facility] [address] [id number] [place] [address]- 1996 Mar, [facility] [place] [facility] [address] [id number] [place] [address]- 2924 Mar, [facility] [place] [facility] [address] [id number] [place] [address]- 1602 February, [facility] [place] [facility] [address] [id number] [place] [address]- 2250 February, [facility] [place] [facility] [address] [id number] [place] [address]- 3884 Nov, [facility] [place] [facility] [address] [id number] [place] [address]- 5227 Nov, [facility] [place] [facility] [address] [address]- 7170 17 Nov, 2011 [facility] [address] [address]463 14 Nov, 2011 [facility] [address] 1849 10 Nov, 2011 [facility] [id number] [place] [address] 42752- 9862 18 Jul, 2011 [facility] [address] [facility] [id number] [place] [address] 69349- 8910 12 Nov, 2010 [facility] [id number] [place] [address] 689633- 8195 15 Sep, 2010 [facility] [id number] [place] [address] 52163- 7259 Sep, [facility] [id number] [place] [address] 25945- 8684 13 Jul, 2010 [facility] [id number] [place] [address] 39493- 8027 16 Dec, 2009 [facility] [id number] [place] [address] 29793- 1067 17 Aug, 2009 [facility] [address] [address]- 8923 13 Aug, 2009 [facility] [address] [address]- 1339 Aug, [facility] [address] [address]- 0406 Jul, [facility] [address] [address]- 6035 14 Apr, 2009 IMMUNIZATIONS No Known Immunizations SOCIAL HISTORY Never Assessed REASON FOR VISIT Medication refill request PLAN OF CARE VITAL SIGNS MEDICATIONS Medication Instructions Dosage Frequency Start Date End Date Duration Status Levothyroxine Sodium 88 mcg Orally Once a day 1 tablet 24h Active RESULTS No Results PROCEDURES No Known procedures INSTRUCTIONS MEDICATIONS ADMINISTERED No Known Medications MEDICAL (GENERAL) HISTORY Type Description Date Medical History Hypothyroidism Dx at [facility] was born without a thyroid Medical History 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
--- OUTSIDE RECORDS SUMMARY | 2019-02-11 13:53 | XMS REPORT ---
Author Author DIANE RIVERA [facility] Address [address] [place] [address] Care Team Providers Care Plane Runner Name Role Phone MARYANN RIVERATA Unavailable PROBLEMS Type Condition ICD9-CM Code LSL01-UN Code Onset Dates Condition Status SNOMED Code Problem Cigarette nicotine dependence without complication F17.210 Active 57603666 Problem Hyperlipidemia, unspecified hyperlipidemia type E78.5 Active 22415318 Problem Acquired hypothyroidism E03.9 Active [id number] ALLERGIES Substance Reaction Event Type Date Status Tetracycline HCl Unknown Drug Allergy Jun, Active Demerol Unknown Drug Allergy Jun, Active Amoxicillin Unknown Drug Allergy Jun, Active ENCOUNTERS Encounter Location Date Diagnosis [place] [id number] [place] [address] 13032- 4180 Jun, Acquired hypothyroidism E03.9 and Hyperlipidemia, unspecified hyperlipidemia type E78.5 [place] [id number] [place] [address] 84742- 2306 Jun, Acquired hypothyroidism E03.9 ; Hyperlipidemia, unspecified hyperlipidemia type E78.5 and Cigarette nicotine dependence without complication F17.210 [place] [id number] [place] [address] 30153- 0082 Jun, Acquired hypothyroidism E03.9 [place] [id number] [place] [address] 33041- 7599 February, Acquired hypothyroidism E03.9 [place] [id number] [place] [address] 71253- 2610 Nov, Acquired hypothyroidism E03.9 [place] [id number] [place] [address] 56847- 4122 Aug, Acute non-recurrent frontal sinusitis J01.10 [place] [id number] [place] [address] 46660- 4355 07 Aug, 2017 [facility] [id number] [place] [address] 71763- 4871 Aug, Acute rhinosinusitis J01.90 [facility] [id number] [place] [address] 59992- 2793 Aug, [facility] [address] 51432- 0360 Jul, Acquired hypothyroidism E03.9 [place] [address] 88011- 7042 Jun, [place] [address] 75011- 5101 May, Screening breast examination Z12.31 ; Skin tag L91.8 and Routine gynecological examination Z01.419 [place] [address] 02546- 4878 May, Hyperlipidemia, unspecified hyperlipidemia type E78.5 ; Acquired hypothyroidism E03.9 and Skin tag L91.8 [place] [id number] [place] [address] 66984- 7777 Mar, [place] [id number] [place] [address] 73940- 7592 Mar, [facility] [id number] [place] [address] 72339 -6682 February, Dysuria R30.0 and Acute cystitis with hematuria N30.01 [facility] [id number] [place] [address] 63750- 2033 Oct, [facility] [id number] [place] [address] 68412- 8633 Sep, Hyperlipidemia, unspecified hyperlipidemia type E78.5 [facility] [id number] [place] [address] 66705- 2240 Aug, Acquired hypothyroidism E03.9 and General medical exam Z00.00 [facility] [address] [address] 7360 07 Aug, 2016 [facility] [id number] [place] [address] 68996- 2390 Aug, [facility] [id number] [place] [address] 75313 -5864 Dec, Allergic rhinitis J30.9 [facility] [id number] [place] [address] 86205- 9972 17 Dec, 2015 [facility] [id number] [place] [address] 45691- 4031 15 Dec, 2015 Acute non-recurrent maxillary sinusitis J01.00 [facility] [id number] [place] [address] 52083- 3731 08 Jul, 2015 Other specified hypothyroidism E03.8 [facility] [id number] [place] [address] 33517- 2172 February, [facility] [id number] [place] [address] 77903- 3462 February, Absence of menstruation 626.0 [facility] [id number] [place] [address] 52266- 2782 Jan, [facility] [address] [address] 1165 Jan, [facility] [id number] [address]- 1700 Dec, [facility] [id number] [place] [address] 29740- 7009 Dec, [facility] [id number] [place] [address] 74116- 2725 Aug, [facility] [address] [address] 1274 Aug, [facility] [address] [place] [address]- 2096 Jul, [facility] [address] [id number] [place] [address]- 4620 Jul, [facility] [place] [facility] [address] [id number] [place] [address]- 2126 Jun, [facility] [place] [facility] [address] [id number] [place] [address]- 2536 Jun, [facility] [place] [facility] [address] [id number] [place] [address]- 0988 Jun, [facility] [place] [facility] [address] [id number] [place] [address]- 0576 Jun, [facility] [place] [facility] [address] [id number] [place] [address]- 5130 Jun, [facility] [place] [facility] [address] [id number] [place] [address]- 7413 May, [facility] [place] [facility] [address] [id number] [place] [address]- 3607 May, [facility] [place] [facility] [address] [id number] [place] [address]- 9984 Oct, [facility] [address] [id number] [place] [address]- 7847 Oct, [facility] [place] [facility] [address] [id number] [place] [address]- 0089 Oct, [facility] [place] [facility] [address] [id number] [place] [address]- 0043 Oct, [facility] [place] [facility] [address] [id number] [place] [address]- 5255 Oct, [facility] [place] [facility] [address] [id number] [place] [address]- 3126 Oct, [facility] [place] [facility] [address] [id number] [place] [address]- 1319 Oct, [facility] [address] [id number] [place] [address]- 0786 Oct, [facility] [place] [facility] [address] [id number] [place] [address]- 6924 Oct, [facility] [place] [facility] [address] [id number] [place] [address]- 8203 Oct, [facility] [place] [facility] [address] [id number] [place] [address]- 6354 Oct, [facility] [place] [facility] [address] [id number] [place] [address]- 7251 Oct, [facility] [place] [facility] [address] [id number] [place] [address]- 6254 Sep, [facility] [place] [facility] [address] [id number] [place] [address]- 5465 Sep, [facility] [place] [facility] [address] [id number] [place] [address]- 0952 Apr, [facility] [place] [facility] [address] [id number] [place] [address]- 3186 Mar, [facility] [place] [facility] [address] [id number] [place] [address]- 7411 Mar, [facility] [place] [facility] [address] [id number] [address]- 2520 Mar, [facility] [place] [facility] [address] [id number] [place] [address]- 8452 February, [facility] [place] [facility] [address] [id number] [place] [address]- 5691 Oct, [facility] [place] [facility] [address] [id number] [place] [address]- 4617 Oct, [facility] [place] [facility] [address] [id number] [place] [address]- 2689 Oct, [facility] [place] [facility] [address] [id number] [place] [address]- 4374 Oct, [facility] [address] [id number] [place] [address]- 0634 Sep, [facility] [place] [facility] [address] [id number] [place] [address]- 6906 Sep, [facility] [place] [facility] [address] [id number] [place] [address]- 4744 May, [facility] [place] [facility] [address] [id number] [place] [address]- 0876 May, [facility] [place] [facility] [address] [id number] [place] [address]- 6889 May, [facility] [place] [facility] [address] [id number] [place] [address]- 7783 May, [facility] [address] [id number] [place] [address]- 6726 May, [facility] [place] [facility] [address] [id number] [place] [address]- 0913 May, [facility] [place] [facility] [address] [id number] [place] [address]- 2889 Apr, [facility] [place] [facility] [address] [id number] [place] [address]- 3025 Apr, [facility] [place] [facility] [address] [id number] [place] [address]- 9621 Mar, [facility] [place] [facility] [address] [id number] [place] [address]- 2329 Mar, [facility] [place] [facility] [address] [id number] [place] [address]- 9136 February, [facility] [place] [facility] [address] [id number] [place] [address]- 9681 February, [facility] [place] [facility] [address] [id number] [place] [address]- 9876 Nov, [facility] [place] [facility] [address] [facility] [id number] [place] [address]- 2446 20 Nov, 2011 [facility] [address] [facility] [id number] [place] [address]- 1036 17 Nov, 2011 [facility] [address] [facility] [id number] [place] [address]- 2546 14 Nov, 2011 [facility] [address] [facility] [id number] [place] [address]- 9816 10 Nov, 2011 [facility] [address] [facility] [id number] [place] [address]- 0140 18 Jul, 2011 [facility] [address] [facility] [id number] [place] [address]- 2966 12 Nov, 2010 [facility] [address] [facility] [id number] [place] [address]- 3037 15 Sep, 2010 [facility] [address] [facility] [id number] [place] [address]- 3245 10 Sep, 2010 [facility] [address] [facility] [id number] [place] [address]- 1093 13 Jul, 2010 [facility] [id number] [address]- 9982 16 Dec, 2009 [facility] [id number] [address]- 0487 17 Aug, 2009 [facility] [address] [facility] [id number] [place] [address]- 8417 13 Aug, 2009 [facility] [address] [facility] [id number] [place] [address]- 2262 13 Aug, 2009 [facility] [address] [facility] [id number] [place] [address]- 1227 28 Jul, 2009 [facility] [address] [facility] [id number] [place] [address]- 0834 14 Apr, 2009 IMMUNIZATIONS No Known Immunizations SOCIAL HISTORY Never Assessed REASON FOR VISIT New provider visit--Rimma PLAN OF CARE Activity Details Follow Up 6 Months or as indicated by lab Reason:hyperlipidemia VITAL SIGNS Height 64.5 in 2018-06-30 Weight 142.5 lbs 2018-06-30 Temperature 97.8 degrees Fahrenheit 2018-06-30 Heart Rate 76 bpm 2018-06-30 Respiratory Rate 20 2018-06-30 BMI 24.08 kg/m2 2018-06-30 Blood pressure systolic 110 mmHg 2018-06-30 Blood pressure diastolic 72 mmHg 2018-06-30 MEDICATIONS Medication Instructions Dosage Frequency Start Date End Date Duration Status Ibuprofen 200 MG Orally Three times a day 1 tablet with food or milk as needed 8h Active Levothyroxine Sodium 88 mcg Orally Once a day 1 tablet 24h Active RESULTS No Results PROCEDURES Procedure Date Ordered Result Body Site ASSAY THYROID STIM HORMONE Jun 30, 2018 COMPREHEN METABOLIC PANEL Jun 30, 2018 VENIPUNCT, ROUTINE* Jun 30, 2018 LIPID PANEL Jun 30, 2018 INSTRUCTIONS MEDICATIONS ADMINISTERED No Known Medications MEDICAL (GENERAL) HISTORY Type Description Date Medical History Hypothyroidism Dx at [facility] was born without a thyroid Medical History 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
--- OUTSIDE RECORDS SUMMARY | 2019-02-11 13:54 | XMS REPORT ---
Author Author STACI BURNETT Organization [employer] Address Unknown Phone Unavailable Care Team Providers Care Liner Man Name Role Phone STACI BURNETT CP Unavailable Allergies No Known Allergies Problems No Known Problems Medications No Known Medications Results No Known Results Summary Purpose [employer] Submission
--- OUTSIDE RECORDS SUMMARY | 2019-02-11 13:54 | XMS REPORT ---
Author Author STACI BURNETT [facility] Address [address] [place] [address] Care Team Providers Care Hospice Volunteer Coordinator Name Role Phone JULIOJere STACI Unavailable PROBLEMS Type Condition ICD9-CM Code IOK11-PT Code Onset Dates Condition Status SNOMED Code Problem Hyperlipidemia, unspecified hyperlipidemia type E78.5 Active 02997950 Problem Acquired hypothyroidism E03.9 Active 622639625 Problem General medical exam Z00.00 Active 244052850 ALLERGIES Substance Reaction Event Type Date Status Tetracycline HCl Unknown Drug Allergy May, Active Demerol Unknown Drug Allergy May, Active Amoxicillin Unknown Drug Allergy May, Active ENCOUNTERS Encounter Location Date Diagnosis [facility] [id number] [place] [address] 73226- 3504 Nov, Acquired hypothyroidism E03.9 [facility] [id number] [place] [address] 22915- 6076 14 Aug, 2017 Acute non-recurrent frontal sinusitis J01.10 [facility] [id number] [place] [address] 12925- 3265 Aug, [facility] [id number] [place] [address] 64168- 4651 07 Aug, 2017 Acute rhinosinusitis J01.90 [facility] [id number] [place] [address] 89740- 3412 Aug, [facility] [id number] [place] [address] 89407- 5810 Jul, Acquired hypothyroidism E03.9 [facility] [id number] [place] [address] 37496- 6172 08 Jun, 2017 [facility] [id number] [place] [address] 18717- 3528 May, Screening breast examination Z12.31 ; Skin tag L91.8 and Routine gynecological examination Z01.419 [place] [address] 80630- 2932 May, Hyperlipidemia, unspecified hyperlipidemia type E78.5 ; Acquired hypothyroidism E03.9 and Skin tag L91.8 [place] [address] 13584- 4959 Mar, [place] [address] 23181- 3102 Mar, [facility] [place] [address] 85205 -6607 February, Dysuria R30.0 and Acute cystitis with hematuria N30.01 [place] [address] 85956- 5327 Oct, [place] [address] 75754- 9952 Sep, Hyperlipidemia, unspecified hyperlipidemia type E78.5 [place] [address] 96693- 9126 Aug, Acquired hypothyroidism E03.9 and General medical exam Z00.00 [place] [id number] [place] [address] 66721- 8652 Aug, [place] [address] 38150- 2608 Aug, [facility] [id number] [place] [address] 69097 -0264 Dec, Allergic rhinitis J30.9 [place] [id number] [place] [address] 05071- 8307 17 Dec, 2015 [place] [id number] [place] [address] 74568- 1828 15 Mar, 2016 Acute non-recurrent maxillary sinusitis J01.00 [facility] [address] [address] 7673 Jul, Other specified hypothyroidism E03.8 [facility] [address] [address]- 3925 February, [facility] [id number] [place] [address] 64330- 0876 February, Absence of menstruation 626.0 [facility] [id number] [place] [address] 02339- 9058 Jan, [facility] [id number] [place] [address] 26265- 4397 Jan, [facility] [id number] [place] [address] 75798- 9629 Dec, [facility] [id number] [place] [address] 11300- 7319 Dec, [facility] [id number] [place] [address] 37433- 3560 Aug, [facility] [id number] [place] [address] 06556- 6518 Aug, [facility] [address] [address]- 9038 Jul, [facility] [address] [address]- 0717 Jul, [facility] [address] [address]- 9649 Jun, [facility] [id number] [place] [address] 59971- 8960 Jun, [facility] [address] [address]- 5998 Jun, [facility] [id number] [place] [address] 30630- 1446 Jun, [facility] [place] [facility] [address] [id number] [place] [address]- 8582 Jun, [facility] [place] [facility] [address] [id number] [place] [address]- 2016 May, [facility] [place] [facility] [address] [id number] [place] [address]- 4407 May, [facility] [place] [facility] [address] [id number] [place] [address]- 0251 Oct, [facility] [place] [facility] [address] [id number] [place] [address]- 4493 Oct, [facility] [place] [facility] [address] [id number] [place] [address]- 0577 Oct, [facility] [place] [facility] [address] [id number] [place] [address]- 9217 Oct, [facility] [place] [facility] [address] [id number] [place] [address]- 0105 Oct, [facility] [place] [facility] [address] [id number] [place] [address]- 3956 Oct, [facility] [place] [facility] [address] [id number] [place] [address]- 0516 Oct, [facility] [place] [facility] [address] [id number] [place] [address]- 6697 Oct, [facility] [place] [facility] [address] [id number] [address]- 9378 Oct, [facility] [place] [facility] [address] [id number] [place] [address]- 0480 Oct, [facility] [place] [facility] [address] [id number] [place] [address]- 1585 Oct, [facility] [place] [facility] [address] [id number] [address]- 8796 Oct, [facility] [place] [facility] [address] [id number] [address]- 8929 Sep, [facility] [address] [id number] [place] [address]- 2486 Sep, [facility] [place] [facility] [address] [id number] [place] [address]- 9368 Apr, [facility] [place] [facility] [address] [id number] [place] [address]- 2732 Mar, [facility] [place] [facility] [address] [id number] [place] [address]- 5383 Mar, [facility] [address] [id number] [place] [address]- 2790 Mar, [facility] [place] [facility] [address] [id number] [place] [address]- 0100 February, [facility] [address] [id number] [place] [address]- 1390 Oct, [facility] [place] [facility] [address] [id number] [place] [address]- 8127 Oct, [facility] [address] [id number] [place] [address]- 6777 Oct, [facility] [place] [facility] [address] [id number] [place] [address]- 3620 Oct, [facility] [address] [id number] [place] [address]- 8840 Sep, [facility] [place] [facility] [address] [id number] [place] [address]- 9265 Sep, [facility] [place] [facility] [address] [id number] [place] [address]- 2483 May, [facility] [place] [facility] [address] [id number] [place] [address]- 9885 May, [facility] [place] [facility] [address] [id number] [place] [address]- 2086 May, [facility] [place] [facility] [address] [id number] [place] [address]- 6682 May, [facility] [place] [facility] [address] [id number] [place] [address]- 4800 May, [facility] [place] [facility] [address] [id number] [place] [address]- 0940 May, [facility] [place] [facility] [address] [id number] [place] [address]- 4131 Apr, [facility] [place] [facility] [address] [id number] [place] [address]- 7573 Apr, [facility] [place] [facility] [address] [id number] [place] [address]- 0839 Mar, [facility] [place] [facility] [address] [facility] [id number] [place] [address]- 0391 Mar, [facility] [place] [facility] [address] [id number] [place] [address]- 2547 February, [facility] [place] [facility] [address] [id number] [place] [address]- 3332 February, [facility] [place] [facility] [address] [id number] [place] [address]- 8454 Nov, [facility] [place] [facility] [address] [facility] [id number] [place] [address]- 5488 Nov, [facility] [place] [facility] [address] [id number] [place] [address]- 7154 17 Nov, 2011 [facility] [place] [facility] [address] [id number] [place] [address]- 1102 14 Nov, 2011 [facility] [place] [facility] [address] [id number] [place] [address]- 2455 10 Nov, 2011 [facility] [place] [facility] [address] [id number] [place] [address]- 1032 18 Jul, 2011 [facility] [place] [facility] [address] [id number] [address]- 2546 Nov, [facility] [address] [address]- 7635 Sep, [facility] [address] [address]- 3556 Sep, [facility] [address] [address]- 9978 Jul, [facility] [address] [address]- 7238 Dec, [facility] [address] [address]- 4051 Aug, [facility] [address] [address]- 3589 Aug, [facility] [address], [place] [address]- 0290 Aug, [facility] [address] [address]- 7467 Jul, [facility] [id number] [address]- 3932 Apr, IMMUNIZATIONS No Known Immunizations SOCIAL HISTORY Never Assessed REASON FOR VISIT Annual physical (female), has a skin tag on thigh she would like removed, [facility] Activity Details Follow Up 1 Year, prn Reason:thyroid VITAL SIGNS Height 64.5 in 2017-06-09 Weight 124.7 lbs 2017-06-09 Temperature 98.2 degrees Fahrenheit 2017-06-09 Heart Rate 78 bpm 2017-06-09 Respiratory Rate 18 2017-06-09 BMI 21.07 kg/m2 2017-06-09 Blood pressure systolic 112 mmHg 2017-06-09 Blood pressure diastolic 74 mmHg 2017-06-09 MEDICATIONS Medication Instructions Dosage Frequency Start Date End Date Duration Status Levothyroxine Sodium 88 MCG Orally Once a day 1 tablet 24h 90 days Active Lovastatin 10 mg Orally Once a day 1 tablet with a meal 24h Sep, Active RESULTS Name Result Date Reference Range Mammogram, Bilateral Screening 2017-06-16 PROCEDURES Procedure Date Ordered Result Body Site SKIN TAG REM 1-15 2017-06-09 N/A Bacterial Vaginosis In House Jun 09, 2017 REMOVAL OF SKIN TAGS Jun 09, 2017 TRICHOMONAS ASSAY W/OPTIC Jun 09, 2017 INSTRUCTIONS MEDICATIONS ADMINISTERED No Known Medications MEDICAL (GENERAL) HISTORY Type Description Date Medical History Hypothyroidism Dx at [facility] was born without a thyroid Medical History 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
--- OUTSIDE RECORDS SUMMARY | 2019-02-11 13:54 | XMS REPORT ---
Author Author STACI BURNETT [facility] eClinical[employer] Address Unknown Phone Unavailable Care Team Providers Care Upholstery Cutter Name Role Phone STACI BURNETT CP Unavailable Allergies, Adverse Reactions, Alerts Substance Reaction Event Type Tetracycline HCl Info Not Available Drug Allergy Demerol Info Not Available Drug Allergy Amoxicillin Info Not Available Drug Allergy Problems Problem Type Condition Code Onset Dates Condition Status Assessment Other specified hypothyroidism E03.8 Active Medications Medication Code System Code Instructions Start Date End Date Status Dosage Levothyroxine Sodium [facility] [address]-76 88 MCG Orally Once a day March 06, 2015 1 tablet Procedures Procedure Coding System Code Date COMPREHEN METABOLIC PANEL CPT-4 67517 Jul 19, 2015 Office Visit, Est Pt., Level 4 CPT-4 76581 Jul 19, 2015 ASSAY THYROID STIM HORMONE CPT-4 62201 Jul 19, 2015 VENIPUNCT, ROUTINE* CPT-4 30195 Jul 19, 2015 Vital Signs Date/Time: Jul 19, 2015 Temperature 97.6 F Weight 134.2 lbs Height 64.5 in BMI 22.68 Index Blood Pressure Diastolic 80 mmHg Blood Pressure Systolic 122 mmHg Cardiac Monitoring Heart Rate 72 bpm Results Name Result Date Reference Range Unit Abnormality Flag ROUTINE VENIPUNCTURE Summary Purpose eClinicalWorks Submission
--- OUTSIDE RECORDS SUMMARY | 2019-02-11 13:54 | XMS REPORT ---
Author Author STACI BURNETT [facility] Address [address] [place] [address] Care Team Providers Care Cigar Packer And Shader Name Role Phone STACI BURNETT Unavailable PROBLEMS Type Condition ICD9-CM Code KTO33-PA Code Onset Dates Condition Status SNOMED Code Problem Hyperlipidemia, unspecified hyperlipidemia type E78.5 Active 75332872 Problem Acquired hypothyroidism E03.9 Active 622570626 Problem General medical exam Z00.00 Active 180507908 ALLERGIES No Information ENCOUNTERS Encounter Location Date Diagnosis [facility] [id number] [place] [address] 67156- 0218 February, Acquired hypothyroidism E03.9 [facility] [id number] [place] [address] 23799- 9294 Nov, Acquired hypothyroidism E03.9 [facility] [id number] [place] [address] 21545- 5930 Aug, Acute non-recurrent frontal sinusitis J01.10 [facility] [address], [place] [address]- 3447 Aug, [facility] [id number] [place] [address] 56975- 1399 Aug, Acute rhinosinusitis J01.90 [facility] [id number] [place] [address] 46256- 1040 Aug, [facility] [id number] [place] [address] 05577- 0583 Jul, Acquired hypothyroidism E03.9 [facility] [address], [place] [address]- 2493 Jun, [facility] [id number] [place] [address] 04906- 4220 May, Screening breast examination Z12.31 ; Skin tag L91.8 and Routine gynecological examination Z01.419 [place] [id number] [place] [address] 02713- 8119 May, Hyperlipidemia, unspecified hyperlipidemia type E78.5 ; Acquired hypothyroidism E03.9 and Skin tag L91.8 [place] [address] 16563- 9956 Mar, [place] [address] 58736- 3556 Mar, [facility] [address] [address] -[address] February, Dysuria R30.0 and Acute cystitis with hematuria N30.[address] [address]382- 6950 Oct, [address] [address]90- 8360 Sep, Hyperlipidemia, unspecified hyperlipidemia type E78.5 [place] [id number] [place] [address] 67213- 8662 Aug, Acquired hypothyroidism E03.9 and General medical exam Z00.00 [place] [id number] [place] [address] 75970- 4693 Aug, [place] [id number] [place] [address] 09107- 2164 Aug, [facility] [address] [place] [id number] [place] [address] 78456 -0460 Dec, Allergic rhinitis J30.9 [place] [id number] [place] [address] 85692- 3261 Dec, [place] [id number] [place] [address] 35688- 9269 Dec, Acute non-recurrent maxillary sinusitis J01.00 [facility] [address], [place] [address]- 2336 Jul, Other specified hypothyroidism E03.8 [facility] [address] 4888 February, [facility] [id number] [place] [address] 495064- 4411 February, Absence of menstruation 626.0 [facility] [address], [place] [address]- 1043 Jan, [facility] [id number] [place] [address] 12260- 4643 Jan, [facility] [id number] [address]- 8809 Dec, [facility] [id number] [place] [address] 26045- 8902 Dec, [facility] [address], [place] [address]- 7687 Aug, [facility] [address], [place] [address]- 3566 Aug, [facility] [address], [place] [address]- 1872 Jul, [facility] [address], [place] [address]- 3368 Jul, [facility] [address], [place] [address]- 2549 Jun, [facility] [id number] [place] [address] 2546 Jun, [facility] [address], [place] [address]- 2546 Jun, [facility] [address], [place] [address]- 5324 05 Jun, 2014 [facility] [place] [facility] [address] [id number] [place] [address]- 9896 Jun, [facility] [place] [facility] [address] [id number] [place] [address]- 3924 May, [facility] [place] [facility] [address] [id number] [place] [address]- 4459 May, [facility] [place] [facility] [address] [id number] [place] [address]- 5445 Oct, [facility] [place] [facility] [address] [id number] [place] [address]- 2113 Oct, [facility] [place] [facility] [address] [id number] [place] [address]- 6199 Oct, [facility] [place] [facility] [address] [id number] [place] [address]- 2232 Oct, [facility] [place] [facility] [address] [id number] [place] [address]- 0218 Oct, [facility] [place] [facility] [address] [id number] [place] [address]- 7929 Oct, [facility] [place] [facility] [address] [id number] [place] [address]- 8020 Oct, [facility] [place] [facility] [address] [id number] [place] [address]- 2133 Oct, [facility] [place] [facility] [address] [id number], [place] [address]- 9025 Oct, [facility] [place] [facility] [address] [id number] [place] [address]- 9154 Oct, [facility] [place] [facility] [address] [id number] [place] [address]- 4712 Oct, [facility] [place] [facility] [address] [id number] [place] [address]- 3794 Oct, [facility] [place] [facility] [address] [id number] [place] [address]- 1098 13 Sep, 2013 [facility] [address] [id number] [place] [address]- 2696 Sep, [facility] [place] [facility] [address] [id number] [place] [address]- 3916 Apr, [facility] [address] [id number] [place] [address]- 2816 Mar, [facility] [place] [facility] [address] [id number] [place] [address]- 0997 Mar, [facility] [address] [id number] [place] [address]- 8369 Mar, [facility] [place] [facility] [address] [id number] [place] [address] 2546 February, [facility] [address] [id number] [place] [address]- 5515 Oct, [facility] [address] [id number] [place] [address]- 7129 Oct, [facility] [address] [id number] [place] [address]- 9874 Oct, [facility] [address] [id number] [place] [address]- 5106 Oct, [facility] [address] [id number] [place] [address]- 8218 14 Sep, 2012 [facility] [place] [facility] [address] [id number] [place] [address]- 2540 Sep, [facility] [place] [facility] [address] [id number] [place] [address]- 1736 May, [facility] [place] [facility] [address] [id number] [place] [address] 2546 May, [facility] [place] [facility] [address] [id number] [place] [address]- 1636 May, [facility] [place] [facility] [address] [id number] [place] [address]- 0230 May, [facility] [place] [facility] [address] [id number] [place] [address]- 8909 May, [facility] [place] [facility] [address] [id number] [place] [address]- 9285 May, [facility] [place] [facility] [address] [id number] [place] [address]- 2475 Apr, [facility] [place] [facility] [address] [id number] [place] [address]- 7591 Apr, [facility] [place] [facility] [address] [id number] [place] [address] Mar, [facility] [place] [facility] [address] [id number] [place] [address] Mar, [facility] [place] [facility] [address] [id number] [place] [address] February, [facility] [place] [facility] [address] [id number] [place] [address] February, [facility] [place] [facility] [address] [id number] [place] [address] Nov, [facility] [place] [facility] [address] [id number] [place] [address] Nov, [facility] [place] [facility] [address] [id number] [place] [address] 17 Nov, 2011 [facility] [place] [facility] [address] [id number] [place] [address] 14 Nov, 2011 [facility] [place] [facility] [address] [id number] [place] [address] 10 Nov, 2011 [facility] [place] [facility] [address] [id number] [place] [address] Jul, [facility] [place] [facility] [address] [id number], [place] [address] 12 Nov, 2010 [facility] [id number] [address] 15 Sep, 2010 [facility] [id number], [place] [address] 10 Sep, 2010 [facility] [id number], [place] [address] 13 Jul, 2010 [facility] [id number], [place] [address] 16 Dec, 2009 [facility] [id number] [address] 17 Aug, 2009 [facility] [id number], [place] [address] Aug, [facility] [id number], [place] [address] Aug, [facility] [id number], [place] [address] Jul, [facility] [id number] [address] Apr, IMMUNIZATIONS No Known Immunizations SOCIAL HISTORY Never Assessed REASON FOR VISIT repository med PLAN OF CARE VITAL SIGNS MEDICATIONS Medication Instructions Dosage Frequency Start Date End Date Duration Status Levothyroxine Sodium 88 MCG Orally Once a day 1 tablet 24h 90 days Active RESULTS No Results PROCEDURES No Known procedures INSTRUCTIONS MEDICATIONS ADMINISTERED No Known Medications MEDICAL (GENERAL) HISTORY Type Description Date Medical History Hypothyroidism Dx at [facility] was born without a thyroid Medical History 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
--- OUTSIDE RECORDS SUMMARY | 2019-02-11 13:54 | XMS REPORT ---
Author Author STACI BURNETT [facility] Address [address] [place] [address] Care Team Providers Care Rubber Stamp Assembler Name Role Phone JULIOJere STACI Unavailable PROBLEMS Type Condition ICD9-CM Code FVZ21-EH Code Onset Dates Condition Status SNOMED Code Problem Hyperlipidemia, unspecified hyperlipidemia type E78.5 Active 62410746 Problem Acquired hypothyroidism E03.9 Active 111315247 Problem General medical exam Z00.00 Active 857817300 ALLERGIES No Information ENCOUNTERS Encounter Location Date Diagnosis [place] [id number] [place] [id number] [place] [address] 45086- 5939 16 Nov, 2017 Acquired hypothyroidism E03.9 [facility] [id number] [place] [address] 02281- 0753 14 Aug, 2017 Acute non-recurrent frontal sinusitis J01.10 [place] [id number] [place] [address] 08240- 3064 07 Aug, 2017 [facility] [id number] [place] [address] 91081- 3763 07 Aug, 2017 Acute rhinosinusitis J01.90 [facility] [id number] [place] [address] 83783- 7007 Aug, [facility] [id number] [place] [address] 30739- 5065 Jul, Acquired hypothyroidism E03.9 [facility] [id number] [place] [address] 98308- 3864 08 Jun, 2017 [facility] [id number] [place] [address] 56209- 1321 May, Screening breast examination Z12.31 ; Skin tag L91.8 and Routine gynecological examination Z01.419 [facility] [id number] [place] [address] 62875- 7725 May, Hyperlipidemia, unspecified hyperlipidemia type E78.5 ; Acquired hypothyroidism E03.9 and Skin tag L91.8 [facility] [id number] [place] [address] 59859- 7001 Mar, [place] [address] 63606- 4887 Mar, [facility] [address] 6[address]87 -0645 February, Dysuria R30.0 and Acute cystitis with hematuria N30.01 [place] [address] 30442- 4582 Oct, [place] [address] 44761- 1583 Sep, Hyperlipidemia, unspecified hyperlipidemia type E78.5 [place] [id number] [place] [address] 32056- 9010 Aug, Acquired hypothyroidism E03.9 and General medical exam Z00.00 [place] [id number] [place] [address] 62785- 5315 Aug, [place] [id number] [place] [address] 91136- 4969 Aug, [facility] [id number] [place] [address] 35049 -1601 Dec, Allergic rhinitis J30.9 [place] [address] 95145- 7931 17 Dec, 2015 [place] [address] 44582- 2739 15 Dec, 2015 Acute non-recurrent maxillary sinusitis J01.00 [place] [address] 24821- 5731 Jul, Other specified hypothyroidism E03.8 [facility] [address] [facility] [id number], [place] [address]- 3089 February, [facility] [address] [address] 2321 February, Absence of menstruation 626.0 [facility] [address] [facility] [id number], [place] [address]- 9540 Jan, [facility] [address] [facility] [id number], [place] [address]- 4114 Jan, [facility] [id number] [place] [address], [place] [address]- 4700 Dec, [facility] [address] [facility] [id number], [place] [address]- 4928 Dec, [facility] [id number] [place] [address] 07961- 9658 Aug, [facility] [address] [facility] [id number], [place] [address]- 8609 Aug, [facility] [place] [facility] [address] [place] [address]- 2262 Jul, [facility] [address] [id number], [place] [address]- 5501 Jul, [facility] [place] [facility] [address], [place] [address]- 7711 Jun, [facility] [place] [facility] [address] [facility] [id number], [place] [address]- 0327 Jun, [facility] [place] [facility] [address] [facility] [id number] [place] [address]- 2955 Jun, [facility] [place] [facility] [address] [facility] [id number], [place] [address]- 6955 Jun, [facility] [place] [facility] [address] [facility] [id number], [place] [address]- 2321 Jun, [facility] [place] [facility] [address] [id number] [place] [address]- 2886 May, [facility] [place] [facility] [address] [id number] [place] [address]- 2032 May, [facility] [place] [facility] [address] [id number] [place] [address]- 3534 Oct, [facility] [place] [facility] [address] [id number] [place] [address]- 8515 Oct, [facility] [address] [id number] [place] [address]- 1630 Oct, [facility] [place] [facility] [address] [id number] [place] [address]- 2709 Oct, [facility] [address] [id number] [place] [address]- 6177 Oct, [facility] [address] [id number] [place] [address]- 6899 Oct, [facility] [place] [facility] [address] [id number] [place] [address]- 0388 Oct, [facility] [place] [facility] [address] [id number] [place] [address]- 5707 Oct, [facility] [place] [facility] [address] [id number] [place] [address]- 3017 Oct, [facility] [place] [facility] [address] [id number] [place] [address]- 8080 Oct, [facility] [place] [facility] [address] [id number] [place] [address]- 5509 Oct, [facility] [place] [facility] [address] [id number] [place] [address]- 3983 Oct, [facility] [place] [facility] [address] [id number] [place] [address]- 5959 Sep, [facility] [place] [facility] [address] [id number] [place] [address]- 5776 Sep, [facility] [place] [facility] [address] [id number] [place] [address]- 6282 Apr, [facility] [place] [facility] [address] [id number] [place] [address]- 0410 Mar, [facility] [place] [facility] [address] [id number] [place] [address]- 3408 Mar, [facility] [place] [facility] [address] [id number] [place] [address]- 1307 Mar, [facility] [place] [facility] [address] [id number] [place] [address]- 9436 February, [facility] [place] [facility] [address] [id number] [place] [address]- 5935 Oct, [facility] [place] [facility] [address] [id number] [place] [address]- 2245 Oct, [facility] [place] [facility] [address] [id number] [place] [address]- 0062 Oct, [facility] [place] [facility] [address] [id number] [place] [address]- 0258 Oct, [facility] [place] [facility] [address] [id number] [place] [address]- 6724 Sep, [facility] [place] [facility] [address] [id number] [place] [address]- 0198 Sep, [facility] [place] [facility] [address] [id number] [place] [address]- 4023 May, [facility] [place] [facility] [address] [id number] [place] [address]- 0558 May, [facility] [place] [facility] [address] [id number] [place] [address]- 3961 May, [facility] [place] [facility] [address] [id number] [place] [address]- 8782 May, [facility] [place] [facility] [address] [id number] [place] [address]- 7457 May, [facility] [address] [id number] [place] [address]- 4515 May, [facility] [place] [facility] [address] [id number] [place] [address]- 1181 Apr, [facility] [address] [id number] [place] [address]- 7761 Apr, [facility] [place] [facility] [address] [id number] [place] [address]- 5428 Mar, [facility] [address] [id number] [place] [address]- 6869 Mar, [facility] [place] [facility] [address] [facility] [id number] [place] [address]- 0518 February, [facility] [address] [id number] [place] [address]- 7358 February, [facility] [address] [id number] [place] [address]- 0999 Nov, [facility] [address] [id number] [place] [address]- 3847 Nov, [facility] [address] [facility] [id number] [place] [address]- 9005 17 Nov, 2011 [facility] [address] [id number] [place] [address]- 7382 14 Nov, 2011 [facility] [place] [facility] [address] [id number] [place] [address]- 8066 10 Nov, 2011 [facility] [place] [facility] [address] [id number] [place] [address]- 3102 Jul, [facility] [place] [facility] [address] [id number] [place] [address]- 0062 12 Nov, 2010 [facility] [place] [facility] [address] [id number], [place] [address]- 2246 15 Sep, 2010 [facility] [address] [id number], [place] [address]- 2546 10 Sep, 2010 [facility] [address], [place] [address]- 2546 13 Jul, 2010 [facility] [address], [place] [address]- 2546 16 Dec, 2009 [facility] [address], [place] [address]- 2546 17 Aug, 2009 [facility] [address] [address]- 2546 Aug, [facility] [address], [place] [address]- 2546 Aug, [facility] [address], [place] [address]- 2546 Jul, [facility] [address] [id number], [place] [address]- 2546 Apr, IMMUNIZATIONS No Known Immunizations SOCIAL HISTORY Never Assessed REASON FOR VISIT Repository Refill Request PLAN OF CARE VITAL SIGNS MEDICATIONS Medication Instructions Dosage Frequency Start Date End Date Duration Status Levothyroxine Sodium 88 MCG Orally Once a day 1 tablet 24h 90 days Active RESULTS No Results PROCEDURES No Known procedures INSTRUCTIONS MEDICATIONS ADMINISTERED No Known Medications MEDICAL (GENERAL) HISTORY Type Description Date Medical History Hypothyroidism Dx at [facility] was born without a thyroid Medical History 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
--- OUTSIDE RECORDS SUMMARY | 2019-02-11 13:54 | XMS REPORT ---
Author Author MEHRANLESLIE [facility] Address [address] [place] [address] Care Team Providers Care Director Product Safety Name Role Phone LESLIE LAURENT Unavailable PROBLEMS Type Condition ICD9-CM Code STJ34-DK Code Onset Dates Condition Status SNOMED Code Problem Hyperlipidemia, unspecified hyperlipidemia type E78.5 Active 39803483 Problem Acquired hypothyroidism E03.9 Active 707069162 Problem General medical exam Z00.00 Active 177448560 ALLERGIES No Information ENCOUNTERS Encounter Location Date Diagnosis [place] [id number] [place] [address] 93532- 0075 16 Nov, 2017 Acquired hypothyroidism E03.9 [facility] [place] [facility] [id number] [place] [address] 58620- 1437 14 Aug, 2017 Acute non-recurrent frontal sinusitis J01.10 [facility] [place] [facility] [address] [id number] [place] [address] 43806- 3698 07 Aug, 2017 [facility] [place] [facility] [id number] [place] [address] 83081- 9063 07 Aug, 2017 Acute rhinosinusitis J01.90 [facility] [place] [facility] [id number] [place] [address] 72256- 9461 Aug, [facility] [place] [facility] [id number] [place] [address] 01510- 7760 Jul, Acquired hypothyroidism E03.9 [facility] [place] [facility] [id number] [place] [address] 23459- 0178 08 Jun, 2017 [facility] [place] [facility] [id number] [place] [address] 68923- 0972 May, Screening breast examination Z12.31 ; Skin tag L91.8 and Routine gynecological examination Z01.419 [facility] [place] [facility] [id number] [place] [address] 16336- 8732 May, Hyperlipidemia, unspecified hyperlipidemia type E78.5 ; Acquired hypothyroidism E03.9 and Skin tag L91.8 [facility] [place] [facility] [id number] [place] [address] 92454- 5407 Mar, [place] [address] 39084- 8964 Mar, [facility] [address] 95892 -4992 February, Dysuria R30.0 and Acute cystitis with hematuria N30.01 [place] [address] 53808- 6845 Oct, [place] [address] 49610- 3390 Sep, Hyperlipidemia, unspecified hyperlipidemia type E78.5 [place] [id number] [place] [address] 87066- 1336 Aug, Acquired hypothyroidism E03.9 and General medical exam Z00.00 [place] [id number] [place] [address] 83945- 8239 Aug, [place] [id number] [place] [address] 70045- 7380 Aug, [facility] [id number] [place] [address] 66577 -2779 Dec, Allergic rhinitis J30.9 [place] [address] 60026- 3154 17 Dec, 2015 [place] [id number] [place] [address] 69071- 9044 15 Dec, 2015 Acute non-recurrent maxillary sinusitis J01.00 [place] [address] 71438- 3200 Jul, Other specified hypothyroidism E03.8 [facility] [address] [facility] [id number] [place] [address]- 0173 February, [facility] [address] [place] [id number] [place] [address]- 2289 February, Absence of menstruation 626.0 [facility] [address] [facility] [id number], [place] [address]- 7219 Jan, [facility] [address] [facility] [id number], [place] [address]- 0133 Jan, [facility] [address] [facility] [id number] [place] [address] 80153- 8858 Dec, [facility] [address] [facility] [id number], [place] [address]- 3427 Dec, [facility] [address] [place] [address] 33994- 8635 Aug, [facility] [address] [facility] [id number], [place] [address]- 1266 Aug, [facility] [id number] [place] [address]- 6928 Jul, [facility] [address] [id number] [address]- 9395 Jul, [facility] [address], [place] [address]- 8099 Jun, [facility] [place] [facility] [address] [facility] [id number], [place] [address]- 0931 Jun, [facility] [address] [facility] [id number], [place] [address]- 7346 Jun, [facility] [place] [facility] [address] [facility] [id number], [place] [address]- 1339 Jun, [facility] [address] [facility] [id number], [place] [address]- 5087 Jun, [facility] [address] [id number] [place] [address]- 1868 May, [facility] [place] [facility] [address] [id number] [place] [address]- 0795 May, [facility] [place] [facility] [address] [id number] [place] [address]- 3606 Oct, [facility] [place] [facility] [address] [id number] [place] [address]- 0187 Oct, [facility] [place] [facility] [address] [id number] [place] [address]- 1897 Oct, [facility] [place] [facility] [address] [id number] [place] [address]- 6415 Oct, [facility] [place] [facility] [address] [id number] [place] [address]- 3080 Oct, [facility] [place] [facility] [address] [id number] [place] [address]- 8035 Oct, [facility] [place] [facility] [address] [id number] [place] [address]- 8598 Oct, [facility] [place] [facility] [address] [id number] [place] [address]- 1607 Oct, [facility] [place] [facility] [address] [id number] [place] [address]- 5896 Oct, [facility] [place] [facility] [address] [id number] [place] [address]- 9510 Oct, [facility] [place] [facility] [address] [id number] [place] [address]- 5621 Oct, [facility] [place] [facility] [address] [id number] [place] [address]- 1843 Oct, [facility] [place] [facility] [address] [id number] [place] [address]- 3101 Sep, [facility] [place] [facility] [address] [id number] [place] [address]- 2306 Sep, [facility] [place] [facility] [address] [id number] [place] [address]- 7027 Apr, [facility] [place] [facility] [address] [id number] [place] [address]- 0556 Mar, [facility] [place] [facility] [address] [id number] [place] [address]- 4286 Mar, [facility] [place] [facility] [address] [id number] [place] [address]- 9475 Mar, [facility] [place] [facility] [address] [id number] [place] [address]- 9172 February, [facility] [place] [facility] [address] [id number] [place] [address]- 7646 Oct, [facility] [place] [facility] [address] [id number] [place] [address]- 6009 Oct, [facility] [place] [facility] [address] [id number] [place] [address]- 0607 Oct, [facility] [place] [facility] [address] [id number] [place] [address]- 4669 Oct, [facility] [place] [facility] [address] [id number] [place] [address]- 5038 Sep, [facility] [place] [facility] [address] [id number] [place] [address]- 3697 Sep, [facility] [place] [facility] [address] [id number] [place] [address]- 5469 May, [facility] [place] [facility] [address] [id number] [place] [address]- 1815 May, [facility] [place] [facility] [address] [id number] [place] [address]- 3696 May, [facility] [place] [facility] [address] [id number] [place] [address]- 3836 May, [facility] [place] [facility] [address] [id number] [place] [address]- 9637 May, [facility] [address] [id number] [place] [address]- 1688 May, [facility] [place] [facility] [address] [id number] [place] [address]- 3770 Apr, [facility] [address] [id number] [place] [address]- 9759 Apr, [facility] [place] [facility] [address] [id number] [place] [address]- 4660 Mar, [facility] [address] [id number] [place] [address]- 0676 Mar, [facility] [address] [facility] [id number] [place] [address]- 6786 February, [facility] [address] [id number] [place] [address] February, [facility] [address] [id number] [place] [address] Nov, [facility] [address] [id number] [place] [address] Nov, [facility] [address] [id number] [place] [address] 17 Nov, 2011 [facility] [place] [facility] [address] [facility] [id number] [place] [address] 14 Nov, 2011 [facility] [address] [id number] [place] [address] 10 Nov, 2011 [facility] [place] [facility] [address] [id number] [place] [address] Jul, [facility] [place] [facility] [address] [id number] [place] [address] 12 Nov, 2010 [facility] [place] [facility] [address] [id number] [place] [address] 15 Sep, 2010 [facility] [place] [facility] [address] [id number] [address] 10 Sep, 2010 [facility] [place] [facility] [id number] [address] 13 Jul, 2010 [facility] [place] [facility] [id number] [address] 16 Dec, 2009 [facility] [place] [facility] [id number] [place] [address] 17 Aug, 2009 [facility] [place] [facility] [id number] [address] Aug, [facility] [place] [facility] [id number] [address] Aug, [facility] [place] [facility] [id number] [address] Jul, [facility] [place] [facility] [id number] [address] Apr, IMMUNIZATIONS No Known Immunizations SOCIAL HISTORY Never Assessed REASON FOR VISIT medication Rx PLAN OF CARE VITAL SIGNS MEDICATIONS Unknown Medications RESULTS No Results PROCEDURES No Known procedures INSTRUCTIONS MEDICATIONS ADMINISTERED No Known Medications MEDICAL (GENERAL) HISTORY Type Description Date Medical History Hypothyroidism Dx at [facility] was born without a thyroid Medical History 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
--- OUTSIDE RECORDS SUMMARY | 2019-02-11 13:54 | XMS REPORT ---
Author Author STACI BURNETT Organization [employer] Address Unknown Phone Unavailable Care Team Providers Care Woven Paper Hat Mender Name Role Phone STACI BURNETT CP Unavailable Allergies No Known Allergies Problems No Known Problems Medications Medication Code System Code Instructions Start Date End Date Status Dosage Levothyroxine Sodium [facility] [id number] MCG Orally Once a day March 06, 2015 1 tablet Results No Known Results Summary Purpose [employer] Submission
--- OUTSIDE RECORDS SUMMARY | 2019-02-11 13:55 | XMS REPORT ---
Author Author STACI BURNETT [facility] Address [address] [place] [address] Care Team Providers Care Architectural Drafter Name Role Phone JULIOJere STACI Unavailable PROBLEMS Type Condition ICD9-CM Code UTT59-VN Code Onset Dates Condition Status SNOMED Code Problem Hyperlipidemia, unspecified hyperlipidemia type E78.5 Active 59953674 Problem Acquired hypothyroidism E03.9 Active 584524037 Problem General medical exam Z00.00 Active 479112660 ALLERGIES No Information ENCOUNTERS Encounter Location Date Diagnosis [place] [id number] [place] [address] 48133- 2205 16 Nov, 2017 Acquired hypothyroidism E03.9 [facility] [id number] [place] [address] 65483- 1044 14 Aug, 2017 Acute non-recurrent frontal sinusitis J01.10 [place] [id number] [place] [address] 79568- 7569 07 Aug, 2017 [facility] [id number] [place] [address] 68052- 9057 07 Aug, 2017 Acute rhinosinusitis J01.90 [facility] [id number] [place] [address] 22845- 6663 Aug, [facility] [id number] [place] [address] 55589- 9965 Jul, Acquired hypothyroidism E03.9 [facility] [id number] [place] [address] 66433- 1847 08 Jun, 2017 [facility] [id number] [place] [address] 62667- 7847 May, Screening breast examination Z12.31 ; Skin tag L91.8 and Routine gynecological examination Z01.419 [facility] [id number] [place] [address] 25535- 5197 May, Hyperlipidemia, unspecified hyperlipidemia type E78.5 ; Acquired hypothyroidism E03.9 and Skin tag L91.8 [facility] [id number] [place] [address] 16928- 9847 Mar, [place] [address] 96657- 2733 Mar, [facility] [address] 59406 -1612 February, Dysuria R30.0 and Acute cystitis with hematuria N30.01 [place] [address] 59547- 3849 Oct, [place] [address] 50530- 5139 Sep, Hyperlipidemia, unspecified hyperlipidemia type E78.5 [place] [id number] [place] [address] 93160- 7462 Aug, Acquired hypothyroidism E03.9 and General medical exam Z00.00 [place] [id number] [place] [address] 12225- 5322 Aug, [place] [id number] [place] [address] 65000- 7183 Aug, [facility] [id number] [place] [address] 12316 -5057 Dec, Allergic rhinitis J30.9 [place] [address] 36823- 8718 17 Dec, 2015 [place] [address] 99772- 3728 15 Dec, 2015 Acute non-recurrent maxillary sinusitis J01.00 [place] [address] 05307- 2968 Jul, Other specified hypothyroidism E03.8 [facility] [address] [facility] [id number], [place] [address] 3563 February, [facility] [address], [place] [address] 0173 February, Absence of menstruation 626.0 [facility] [address] [facility] [id number], [place] [address]- 8185 Jan, [facility] [address] [facility] [id number], [place] [address]- 9911 Jan, [facility] [address] [id number] [place] [address], [place] [address]- 3533 Dec, [facility] [address] [facility] [id number], [place] [address]- 6868 Dec, [facility] [id number] [place] [address] 46435- 8390 Aug, [facility] [address] [facility] [id number], [place] [address]- 7332 Aug, [facility] [place] [facility] [address] [place] [address]- 5915 Jul, [facility] [id number], [place] [address]- 8265 Jul, [facility] [place] [facility] [address], [place] [address]- 8965 Jun, [facility] [place] [facility] [address] [facility] [id number], [place] [address]- 4431 Jun, [facility] [place] [facility] [address] [facility] [id number] [place] [address]- 1668 Jun, [facility] [place] [facility] [address] [facility] [id number], [place] [address]- 9522 Jun, [facility] [place] [facility] [address] [facility] [id number], [place] [address]- 4836 Jun, [facility] [place] [facility] [address] [id number] [place] [address]- 9221 May, [facility] [place] [facility] [address] [id number] [place] [address]- 9078 May, [facility] [place] [facility] [address] [id number] [place] [address]- 8104 Oct, [facility] [place] [facility] [address] [id number] [place] [address]- 3864 Oct, [facility] [address] [id number] [place] [address]- 9597 Oct, [facility] [place] [facility] [address] [id number] [place] [address]- 4899 Oct, [facility] [address] [id number] [place] [address]- 9243 Oct, [facility] [address] [id number] [place] [address]- 0555 Oct, [facility] [place] [facility] [address] [id number] [place] [address]- 1500 Oct, [facility] [place] [facility] [address] [id number] [place] [address]- 2881 Oct, [facility] [place] [facility] [address] [id number] [place] [address]- 1627 Oct, [facility] [place] [facility] [address] [id number] [place] [address]- 8116 Oct, [facility] [place] [facility] [address] [id number] [place] [address]- 5570 Oct, [facility] [place] [facility] [address] [id number] [place] [address]- 3038 Oct, [facility] [place] [facility] [address] [id number] [place] [address]- 1513 Sep, [facility] [place] [facility] [address] [id number] [place] [address]- 8376 Sep, [facility] [place] [facility] [address] [id number] [place] [address]- 3911 Apr, [facility] [place] [facility] [address] [id number] [place] [address]- 8906 Mar, [facility] [place] [facility] [address] [id number] [place] [address]- 3662 Mar, [facility] [place] [facility] [address] [id number] [place] [address]- 6856 Mar, [facility] [place] [facility] [address] [id number] [place] [address]- 4985 February, [facility] [place] [facility] [address] [id number] [place] [address]- 1340 Oct, [facility] [place] [facility] [address] [id number] [place] [address]- 6731 Oct, [facility] [place] [facility] [address] [id number] [place] [address]- 3156 Oct, [facility] [place] [facility] [address] [id number] [place] [address]- 0842 Oct, [facility] [place] [facility] [address] [id number] [place] [address]- 6982 Sep, [facility] [place] [facility] [address] [id number] [place] [address]- 1526 Sep, [facility] [place] [facility] [address] [id number] [place] [address]- 3933 May, [facility] [place] [facility] [address] [id number] [place] [address]- 0008 May, [facility] [place] [facility] [address] [id number] [place] [address]- 8016 May, [facility] [place] [facility] [address] [id number] [place] [address]- 8851 May, [facility] [place] [facility] [address] [id number] [place] [address]- 2330 May, [facility] [address] [id number] [place] [address]- 1312 May, [facility] [place] [facility] [address] [id number] [place] [address]- 8697 Apr, [facility] [address] [id number] [place] [address]- 7644 Apr, [facility] [place] [facility] [address] [id number] [place] [address]- 1060 Mar, [facility] [address] [id number] [place] [address]- 4119 Mar, [facility] [place] [facility] [address] [facility] [id number] [place] [address]- 7305 February, [facility] [address] [id number] [place] [address]- 7698 February, [facility] [address] [id number] [place] [address]- 5018 Nov, [facility] [address] [id number] [place] [address]- 0768 Nov, [facility] [address] [facility] [id number] [place] [address]- 3711 17 Nov, 2011 [facility] [address] [id number] [place] [address]- 0795 14 Nov, 2011 [facility] [place] [facility] [address] [id number] [place] [address]- 9507 10 Nov, 2011 [facility] [place] [facility] [address] [id number] [place] [address]- 0453 Jul, [facility] [place] [facility] [address] [id number] [place] [address]- 2289 12 Nov, 2010 [facility] [place] [facility] [address] [id number], [place] [address]- 6596 15 Sep, 2010 [facility] [id number], [place] [address]- 8766 10 Sep, 2010 [facility] [address], [place] [address]- 6716 13 Jul, 2010 [facility] [address], [place] [address] 2546 16 Dec, 2009 [facility] [address], [place] [address]- 3551 17 Aug, 2009 [facility] [address], [place] [address]- 5683 Aug, [facility] [address], [place] [address]- 4765 Aug, [facility] [address], [place] [address]- 9189 28 Jul, 2009 [facility] [address], [place] [address]- 4389 14 Apr, 2009 IMMUNIZATIONS No Known Immunizations SOCIAL HISTORY Never Assessed REASON FOR VISIT [employer] hx update PLAN OF CARE VITAL SIGNS MEDICATIONS Unknown [...]
--- OUTSIDE RECORDS SUMMARY | 2019-02-11 13:55 | XMS REPORT ---
Author Author SOLITARIO FINCH [facility] Address [address] [place] [address] Care Team Providers Care Hand Sign Writer Name Role Phone SOLITARIO FINCH Unavailable PROBLEMS Type Condition ICD9-CM Code QQH43-KS Code Onset Dates Condition Status SNOMED Code Problem Hyperlipidemia, unspecified hyperlipidemia type E78.5 Active 79290766 Problem Acquired hypothyroidism E03.9 Active 555293553 Problem General medical exam Z00.00 Active 750780804 ALLERGIES Unknown Allergies SOCIAL HISTORY No smoking Hx information available PLAN OF CARE VITAL SIGNS MEDICATIONS Medication Instructions Dosage Frequency Start Date End Date Duration Status Bactrim DS 800-160 MG Orally Twice a day 1 tablet 12h Oct,Oct 10 day(s) Active RESULTS No Results PROCEDURES No Known procedures IMMUNIZATIONS No Known Immunizations
--- OUTSIDE RECORDS SUMMARY | 2019-02-11 13:55 | XMS REPORT ---
Author Author STACI BURNETT [facility] Address [address] [place] [address] Care Team Providers Care District Gauger Name Role Phone JULIOJere STACI Unavailable PROBLEMS Type Condition ICD9-CM Code DFO47-DI Code Onset Dates Condition Status SNOMED Code Problem Hyperlipidemia, unspecified hyperlipidemia type E78.5 Active 27179324 Problem Acquired hypothyroidism E03.9 Active 403815490 Problem General medical exam Z00.00 Active 607706845 ALLERGIES Substance Reaction Event Type Date Status Tetracycline HCl Unknown Drug Allergy May, Active Demerol Unknown Drug Allergy May, Active Amoxicillin Unknown Drug Allergy May, Active ENCOUNTERS Encounter Location Date Diagnosis [facility] [id number] [place] [address] 10460- 8520 16 Nov, 2017 Acquired hypothyroidism E03.9 [facility] [id number] [place] [address] 31861- 8179 14 Aug, 2017 Acute non-recurrent frontal sinusitis J01.10 [facility] [id number] [place] [address] 49690- 2830 Aug, [facility] [id number] [place] [address] 25910- 5269 Aug, Acute rhinosinusitis J01.90 [facility] [id number] [place] [address] 50300- 5361 Aug, [facility] [id number] [place] [address] 45401- 1853 Jul, Acquired hypothyroidism E03.9 [facility] [id number] [place] [address] 79136- 2029 08 Jun, 2017 [facility] [id number] [place] [address] 87816- 4290 May, Screening breast examination Z12.31 ; Skin tag L91.8 and Routine gynecological examination Z01.419 [place] [address] 72585- 2119 May, Hyperlipidemia, unspecified hyperlipidemia type E78.5 ; Acquired hypothyroidism E03.9 and Skin tag L91.8 [place] [address] 93574- 6222 Mar, [place] [address] 50017- 9233 Mar, [facility] [place] [address] 44561 -5005 February, Dysuria R30.0 and Acute cystitis with hematuria N30.01 [place] [address] 37782- 2655 Oct, [place] [address] 69088- 4520 Sep, Hyperlipidemia, unspecified hyperlipidemia type E78.5 [place] [address] 23848- 9855 Aug, Acquired hypothyroidism E03.9 and General medical exam Z00.00 [place] [id number] [place] [address] 12402- 4305 Aug, [place] [address] 53094- 3185 Aug, [facility] [id number] [place] [address] 22938 -1805 Dec, Allergic rhinitis J30.9 [place] [id number] [place] [address] 48714- 9082 17 Dec, 2015 [place] [id number] [place] [address] 80623- 4328 15 Mar, 2016 Acute non-recurrent maxillary sinusitis J01.00 [facility] [address] [address]- 0310 Jul, Other specified hypothyroidism E03.8 [facility] [address] [address]- 0069 February, [facility] [id number] [place] [address] 19385- 1108 February, Absence of menstruation 626.0 [facility] [id number] [place] [address] 80930- 9608 Jan, [facility] [id number] [place] [address] 08218- 8253 Jan, [facility] [id number] [place] [address] 32976- 8039 Dec, [facility] [id number] [place] [address] 53034- 1806 Dec, [facility] [address] [place] [address] 72739- 5332 Aug, [facility] [id number] [place] [address] 98704- 2987 Aug, [facility] [address] [address]- 3750 Jul, [facility] [address] [address]- 1947 Jul, [facility] [address] [address]- 1283 Jun, [facility] [id number] [place] [address] 54687- 5006 Jun, [facility] [address] [address]- 0274 Jun, [facility] [address] [place] [address] 66292- 1492 Jun, [facility] [place] [facility] [address] [id number] [place] [address]- 4547 Jun, [facility] [place] [facility] [address] [id number] [place] [address]- 3161 May, [facility] [place] [facility] [address] [id number] [place] [address]- 0650 May, [facility] [place] [facility] [address] [id number] [place] [address]- 5267 Oct, [facility] [place] [facility] [address] [id number] [place] [address]- 3236 Oct, [facility] [place] [facility] [address] [id number] [place] [address]- 4214 Oct, [facility] [place] [facility] [address] [id number] [place] [address]- 3268 Oct, [facility] [place] [facility] [address] [id number] [place] [address]- 0682 Oct, [facility] [place] [facility] [address] [id number] [place] [address]- 3284 Oct, [facility] [place] [facility] [address] [id number] [place] [address]- 3271 Oct, [facility] [place] [facility] [address] [id number] [place] [address]- 4465 Oct, [facility] [place] [facility] [address] [id number] [address]- 0160 Oct, [facility] [place] [facility] [address] [id number] [place] [address]- 2398 Oct, [facility] [place] [facility] [address] [id number] [place] [address]- 5266 Oct, [facility] [place] [facility] [address] [id number] [address]- 8993 Oct, [facility] [place] [facility] [address] [id number] [address]- 0678 Sep, [facility] [address] [id number] [place] [address]- 0178 Sep, [facility] [place] [facility] [address] [id number] [place] [address]- 0380 Apr, [facility] [place] [facility] [address] [id number] [place] [address]- 9231 Mar, [facility] [place] [facility] [address] [id number] [place] [address]- 6174 Mar, [facility] [address] [id number] [place] [address]- 1275 Mar, [facility] [place] [facility] [address] [id number] [place] [address]- 5180 February, [facility] [address] [id number] [place] [address]- 1659 Oct, [facility] [place] [facility] [address] [id number] [place] [address]- 8574 Oct, [facility] [address] [id number] [place] [address]- 1535 Oct, [facility] [place] [facility] [address] [id number] [place] [address]- 1384 Oct, [facility] [address] [id number] [place] [address]- 1731 Sep, [facility] [place] [facility] [address] [id number] [place] [address]- 9036 Sep, [facility] [place] [facility] [address] [id number] [place] [address]- 1309 May, [facility] [place] [facility] [address] [id number] [place] [address]- 7546 May, [facility] [place] [facility] [address] [id number] [place] [address]- 2446 May, [facility] [place] [facility] [address] [id number] [place] [address]- 6280 May, [facility] [place] [facility] [address] [id number] [place] [address]- 0583 May, [facility] [place] [facility] [address] [id number] [place] [address]- 9206 May, [facility] [place] [facility] [address] [id number] [place] [address]- 9629 Apr, [facility] [place] [facility] [address] [id number] [place] [address]- 7259 Apr, [facility] [place] [facility] [address] [id number] [place] [address]- 9129 Mar, [facility] [place] [facility] [address] [facility] [id number] [place] [address]- 1668 Mar, [facility] [place] [facility] [address] [id number] [place] [address]- 2552 February, [facility] [place] [facility] [address] [id number] [place] [address]- 0901 February, [facility] [place] [facility] [address] [id number] [place] [address]- 5180 Nov, [facility] [place] [facility] [address] [facility] [id number] [place] [address]- 1374 Nov, [facility] [place] [facility] [address] [id number] [place] [address]- 5225 17 Nov, 2011 [facility] [place] [facility] [address] [id number] [place] [address]- 4982 14 Nov, 2011 [facility] [place] [facility] [address] [id number] [place] [address]- 2494 10 Nov, 2011 [facility] [place] [facility] [address] [id number] [place] [address]- 4492 18 Jul, 2011 [facility] [place] [facility] [address] [id number] [address]- 2546 Nov, [facility] [address] [address]- 0564 Sep, [facility] [address] [address]- 8766 Sep, [facility] [id number] [address] Jul, [facility] [id number] [address] Dec, [facility] [id number] [address] Aug, [facility] [id number] [address] Aug, [facility] [id number] [address] Aug, [facility] [id number] [address] Jul, [facility] [id number] [address] Apr, IMMUNIZATIONS No Known Immunizations SOCIAL HISTORY Never Assessed REASON FOR VISIT Thyroid -- mohan varner PLAN OF CARE Activity Details Follow Up Extended visit Reason:skin tag removal VITAL SIGNS Height 64.5 in 2017-05-12 Weight 127.6 lbs 2017-05-12 Temperature 98.0 degrees Fahrenheit 2017-05-12 BMI 21.56 kg/m2 2017-05-12 Blood pressure systolic 118 mmHg 2017-05-12 Blood pressure diastolic 76 mmHg 2017-05-12 MEDICATIONS Medication Instructions Dosage Frequency Start Date End Date Duration Status Lovastatin 10 mg Orally Once a day 1 tablet with a meal 24h Sep, Active Levothyroxine Sodium 88 MCG Orally Once a day 1 tablet 24h 90 days Active RESULTS Name Result Date Reference Range TSH 2017-05-12 TSH 1.750 0.450-4.500 CMP 2017-05-12 Glucose, Serum 95 65-99 BUN 18 6-24 Creatinine, Serum 0.86 0.57-1.00 eGFR If NonAfricn Am 81 >59 eGFR If Africn Am 94 >59 BUN/Creatinine Ratio 21 9-23 Sodium, Serum 141 134-144 Potassium, Serum 4.5 3.5-5.2 Chloride, Serum 100 96-106 Carbon Dioxide, Total 23 18-29 Calcium, Serum 9.7 8.7-10.2 Protein, Total, Serum 7.3 6.0-8.5 Albumin, Serum 4.8 3.5-5.5 Globulin, Total 2.5 1.5-4.5 A/G Ratio 1.9 1.2-2.2 Bilirubin, Total 0.5 0.0-1.2 Alkaline Phosphatase, S 101 39-117 AST (SGOT) 13 0-40 ALT (SGPT) 9 0-32 PROCEDURES Procedure Date Ordered Result Body Site COMPREHEN METABOLIC PANEL May 12, 2017 ASSAY THYROID STIM HORMONE May 12, 2017 VENIPUNCT, ROUTINE* May 12, 2017 INSTRUCTIONS MEDICATIONS ADMINISTERED No Known Medications MEDICAL (GENERAL) HISTORY Type Description Date Medical History 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
--- OUTSIDE RECORDS SUMMARY | 2019-02-11 13:55 | XMS REPORT ---
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 Role Phone JULIOJere STACI Unavailable PROBLEMS Type Condition ICD9-CM Code NEK02-IN Code Onset Dates Condition Status SNOMED Code Problem Hyperlipidemia, unspecified hyperlipidemia type E78.5 Active 55627173 Problem Acquired hypothyroidism E03.9 Active 379651454 Problem General medical exam Z00.00 Active 601200129 ALLERGIES No Information ENCOUNTERS Encounter Location Date Diagnosis [place] [id number] [place] [address] 01209- 4037 16 Nov, 2017 Acquired hypothyroidism E03.9 [facility] [id number] [place] [address] 25193- 3407 14 Aug, 2017 Acute non-recurrent frontal sinusitis J01.10 [place] [id number] [place] [address] 28428- 2491 07 Aug, 2017 [facility] [id number] [place] [address] 32328- 0115 07 Aug, 2017 Acute rhinosinusitis J01.90 [facility] [id number] [place] [address] 00230- 9885 Aug, [facility] [id number] [place] [address] 46338- 8139 Jul, Acquired hypothyroidism E03.9 [facility] [id number] [place] [address] 53574- 4536 08 Jun, 2017 [facility] [id number] [place] [address] 26570- 5015 May, Screening breast examination Z12.31 ; Skin tag L91.8 and Routine gynecological examination Z01.419 [facility] [id number] [place] [address] 91511- 9876 May, Hyperlipidemia, unspecified hyperlipidemia type E78.5 ; Acquired hypothyroidism E03.9 and Skin tag L91.8 [facility] [id number] [place] [address] 53099- 1467 Mar, [place] [address] 22044- 6361 Mar, [facility] [address] 32032 -6472 February, Dysuria R30.0 and Acute cystitis with hematuria N30.01 [place] [address] 10068- 6192 Oct, [place] [address] 55903- 7488 Sep, Hyperlipidemia, unspecified hyperlipidemia type E78.5 [place] [id number] [place] [address] 19990- 1520 Aug, Acquired hypothyroidism E03.9 and General medical exam Z00.00 [place] [id number] [place] [address] 51596- 2735 Aug, [place] [id number] [place] [address] 20228- 6070 Aug, [facility] [id number] [place] [address] 11475 -7340 Dec, Allergic rhinitis J30.9 [place] [address] 46024- 9273 17 Dec, 2015 [place] [address] 33935- 6089 15 Dec, 2015 Acute non-recurrent maxillary sinusitis J01.00 [place] [address] 01581- 3923 Jul, Other specified hypothyroidism E03.8 [facility] [address] [facility] [facility] [id number] [address]31 February, [facility] [address] [address]- 8546 February, Absence of menstruation 626.0 [facility] [address] [address] [facility] [id number] [address]- 5717 Jan, [facility] [address] [address] [facility] [id number] [address]- 2614 Jan, [facility] [id number] [place] [address], [place] [address]- 8667 Dec, [facility] [address] [facility] [address] [facility] [id number], [place] [address]- 9388 Dec, [facility] [id number] [place] [address] 22562- 4192 Aug, [facility] [address] [address] [facility] [id number] [address]- 0626 Aug, [facility] [place] [facility] [id number] [place] [address]- 2441 Jul, [facility] [address] [id number] [address]- 7092 Jul, [facility] [place] [facility] [address], [place] [address]- 1477 Jun, [facility] [place] [facility] [address] [address] [facility] [id number][place] [address]- 7772 Jun, [facility] [place] [facility] [address] [address] [facility] [id number] [place] [address]- 7465 Jun, [facility] [place] [facility] [address] [address] [facility] [id number] [address]- 6607 Jun, [facility] [place] [facility] [address] [address] [facility] [id number] [address]- 9069 Jun, [facility] [place] [facility] [address] [id number] [place] [address]- 6331 May, [facility] [place] [facility] [address] [id number] [place] [address]- 2334 May, [facility] [place] [facility] [address] [id number] [place] [address]- 9130 Oct, [facility] [place] [facility] [address] [id number] [place] [address]- 8510 Oct, [facility] [address] [id number] [place] [address]- 2546 Oct, [facility] [place] [facility] [address] [id number] [place] [address]- 8213 Oct, [facility] [address] [id number] [place] [address]- 3952 Oct, [facility] [address] [id number] [place] [address]- 9508 Oct, [facility] [place] [facility] [address] [id number] [place] [address]- 3226 Oct, [facility] [place] [facility] [address] [id number] [place] [address]- 5524 Oct, [facility] [place] [facility] [address] [id number] [place] [address]- 7912 Oct, [facility] [place] [facility] [address] [id number] [place] [address]- 7463 Oct, [facility] [place] [facility] [address] [id number] [place] [address]- 9459 Oct, [facility] [place] [facility] [address] [id number] [place] [address]- 1413 Oct, [facility] [place] [facility] [address] [id number] [place] [address]- 0876 Sep, [facility] [place] [facility] [address] [id number] [place] [address]- 1768 Sep, [facility] [place] [facility] [address] [id number] [place] [address]- 9110 Apr, [facility] [place] [facility] [address] [id number] [place] [address]- 7133 Mar, [facility] [place] [facility] [address] [id number] [place] [address]- 1004 Mar, [facility] [place] [facility] [address] [id number] [place] [address]- 0299 Mar, [facility] [place] [facility] [address] [id number] [place] [address]- 6989 February, [facility] [place] [facility] [address] [id number] [place] [address]- 4200 Oct, [facility] [place] [facility] [address] [id number] [place] [address]- 6444 Oct, [facility] [place] [facility] [address] [id number] [place] [address]- 0123 Oct, [facility] [place] [facility] [address] [id number] [place] [address]- 0918 Oct, [facility] [place] [facility] [address] [id number] [place] [address]- 2620 Sep, [facility] [place] [facility] [address] [id number] [place] [address]- 1606 Sep, [facility] [place] [facility] [address] [id number] [place] [address]- 6518 May, [facility] [place] [facility] [address] [id number] [place] [address]- 0287 May, [facility] [place] [facility] [address] [id number] [place] [address]- 7646 May, [facility] [place] [facility] [address] [id number] [place] [address]- 9488 May, [facility] [place] [facility] [address] [id number] [place] [address]- 0458 May, [facility] [address] [id number] [place] [address]- 4324 May, [facility] [place] [facility] [address] [id number] [place] [address]- 6834 Apr, [facility] [address] [id number] [place] [address]- 4058 Apr, [facility] [place] [facility] [address] [id number] [place] [address]- 9478 Mar, [facility] [address] [id number] [place] [address]- 0380 Mar, [facility] [place] [facility] [address] [facility] [address] [facility] [id number] [place] [address]- 2997 February, [facility] [address] [id number] [place] [address]- 7099 February, [facility] [address] [id number] [place] [address]- 6438 Nov, [facility] [address] [id number] [place] [address]- 9350 Nov, [facility] [address] [address] [facility] [id number] [place] [address]- 8376 17 Nov, 2011 [facility] [address] [id number] [place] [address]- 6878 14 Nov, 2011 [facility] [place] [facility] [address] [id number] [place] [address]- 7400 10 Nov, 2011 [facility] [place] [facility] [address] [id number] [place] [address]- 6264 Jul, [facility] [place] [facility] [address] [id number] [place] [address]- 0029 12 Nov, 2010 [facility] [place] [facility] [address] [id number] [address]- 5376 15 Sep, 2010 [facility] [id number] [address] 2546 10 Sep, 2010 [facility] [address] [address] 2546 13 Jul, 2010 [facility] [address] [address]- 2546 16 Dec, 2009 [facility] [address] [address] 2546 17 Aug, 2009 [facility] [address] [address]- 4776 Aug, [facility] [address] [address] 2546 Aug, [facility] [address] [address] 2546 28 Jul, 2009 [facility] [address] [address] 2546 14 Apr, 2009 IMMUNIZATIONS No Known Immunizations SOCIAL HISTORY Never Assessed REASON FOR VISIT PLAN OF CARE VITAL SIGNS MEDICATIONS Unknown [...]
--- OUTSIDE RECORDS SUMMARY | 2019-02-11 13:55 | XMS REPORT ---
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 Phone JULIOJere STACI Unavailable PROBLEMS Type Condition ICD9-CM Code EFW33-ON Code Onset Dates Condition Status SNOMED Code Problem Hyperlipidemia, unspecified hyperlipidemia type E78.5 Active 21747751 Problem Acquired hypothyroidism E03.9 Active 684011049 Problem General medical exam Z00.00 Active [id number] ALLERGIES No Information ENCOUNTERS Encounter Location Date Diagnosis [place] [id number] [place] [address] 05102- 9978 16 Nov, 2017 Acquired hypothyroidism E03.9 [facility] [id number] [place] [address] 34064- 7138 14 Aug, 2017 Acute non-recurrent frontal sinusitis J01.10 [place] [id number] [place] [address] 62313- 5300 07 Aug, 2017 [facility] [id number] [place] [address] 76877- 4089 07 Aug, 2017 Acute rhinosinusitis J01.90 [facility] [id number] [place] [address] 34752- 9359 Aug, [facility] [id number] [place] [address] 35472- 0942 Jul, Acquired hypothyroidism E03.9 [facility] [id number] [place] [address] 40562- 8086 08 Jun, 2017 [facility] [id number] [place] [address] 23711- 5706 May, Screening breast examination Z12.31 ; Skin tag L91.8 and Routine gynecological examination Z01.419 [facility] [id number] [place] [address] 82147- 8100 May, Hyperlipidemia, unspecified hyperlipidemia type E78.5 ; Acquired hypothyroidism E03.9 and Skin tag L91.8 [facility] [id number] [place] [address] 04405- 1619 Mar, [place] [address] 55554- 4080 Mar, [facility] [address] 37549 -2388 February, Dysuria R30.0 and Acute cystitis with hematuria N30.01 [place] [address] 29588- 0668 Oct, [place] [address] 10541- 0379 Sep, Hyperlipidemia, unspecified hyperlipidemia type E78.5 [place] [id number] [place] [address] 35917- 7294 Aug, Acquired hypothyroidism E03.9 and General medical exam Z00.00 [place] [id number] [place] [address] 28256- 1642 Aug, [place] [id number] [place] [address] 22209- 0563 Aug, [facility] [id number] [place] [address] 06817 -1878 Dec, Allergic rhinitis J30.9 [place] [address] 51751- 9777 17 Dec, 2015 [place] [address] 50879- 9040 15 Dec, 2015 Acute non-recurrent maxillary sinusitis J01.00 [place] [address] 30585- 6424 Jul, Other specified hypothyroidism E03.8 [facility] [address] [facility] [id number] [address]- 0156 February, [facility] [address]00565[address] [address]- 8424 February, Absence of menstruation 626.0 [facility] [address] [facility] [id number] [place] [address]- 1133 Jan, [facility] [address] [facility] [id number] [place] [address]- 4166 Jan, [facility] [id number] [place] [address], [place] [address]- 3829 Dec, [facility] [address] [facility] [id number] [place] [address]- 2665 Dec, [facility] [id number] [place] [address] 67914- 3980 Aug, [facility] [address] [facility] [id number] [place] [address]- 9721 Aug, [facility] [place] [facility] [address] [place] [address]- 0978 Jul, [facility] [address] [id number] [address]- 7303 Jul, [facility] [place] [facility] [address] [address]- 8431 Jun, [facility] [place] [facility] [address] [facility] [id number] [place] [address]- 8093 Jun, [facility] [place] [facility] [address] [facility] [id number] [place] [address]- 1994 Jun, [facility] [place] [facility] [address] [facility] [id number] [place] [address]- 8487 Jun, [facility] [place] [facility] [address] [facility] [id number] [place] [address]- 1330 Jun, [facility] [place] [facility] [address] [id number] [place] [address]- 6069 May, [facility] [place] [facility] [address] [id number] [place] [address]- 4850 May, [facility] [place] [facility] [address] [id number] [place] [address]- 8613 Oct, [facility] [place] [facility] [address] [id number] [place] [address]- 7672 Oct, [facility] [address] [id number] [place] [address]- 2024 Oct, [facility] [place] [facility] [address] [id number] [place] [address]- 5697 Oct, [facility] [address] [id number] [place] [address]- 7088 Oct, [facility] [address] [id number] [place] [address]- 7983 Oct, [facility] [place] [facility] [address] [id number] [place] [address]- 8414 Oct, [facility] [place] [facility] [address] [id number] [place] [address]- 4717 Oct, [facility] [place] [facility] [address] [id number] [place] [address]- 5454 Oct, [facility] [place] [facility] [address] [id number] [place] [address]- 0649 Oct, [facility] [place] [facility] [address] [id number] [place] [address]- 8970 Oct, [facility] [place] [facility] [address] [id number] [place] [address]- 9335 Oct, [facility] [place] [facility] [address] [id number] [place] [address]- 6430 Sep, [facility] [place] [facility] [address] [id number] [place] [address]- 9617 Sep, [facility] [place] [facility] [address] [id number] [place] [address]- 1843 Apr, [facility] [place] [facility] [address] [id number] [place] [address]- 6926 Mar, [facility] [place] [facility] [address] [id number] [place] [address]- 0808 Mar, [facility] [place] [facility] [address] [id number] [place] [address]- 0498 Mar, [facility] [place] [facility] [address] [id number] [place] [address]- 1151 February, [facility] [place] [facility] [address] [id number] [place] [address]- 7988 Oct, [facility] [place] [facility] [address] [id number] [place] [address]- 4852 Oct, [facility] [place] [facility] [address] [id number] [place] [address]- 1126 Oct, [facility] [place] [facility] [address] [id number] [place] [address]- 2769 Oct, [facility] [place] [facility] [address] [id number] [place] [address]- 6860 Sep, [facility] [place] [facility] [address] [id number] [place] [address]- 1609 Sep, [facility] [place] [facility] [address] [id number] [place] [address]- 2045 May, [facility] [place] [facility] [address] [id number] [place] [address]- 0690 May, [facility] [place] [facility] [address] [id number] [place] [address]- 8461 May, [facility] [place] [facility] [address] [id number] [place] [address]- 4210 May, [facility] [place] [facility] [address] [id number] [place] [address]- 5751 May, [facility] [address] [id number] [place] [address]- 6930 May, [facility] [place] [facility] [address] [id number] [place] [address]- 7162 Apr, [facility] [address] [id number] [place] [address]- 5140 Apr, [facility] [place] [facility] [address] [id number] [place] [address]- 3950 Mar, [facility] [address] [id number] [place] [address]- 8642 Mar, [facility] [place] [facility] [address] [facility] [id number] [place] [address]- 9773 February, [facility] [address] [id number] [place] [address]- 1473 February, [facility] [address] [id number] [place] [address] Nov, [facility] [address] [id number] [place] [address] Nov, [facility] [address] [id number] [place] [address] 17 Nov, 2011 [facility] [address] [id number] [place] [address] 14 Nov, 2011 [facility] [place] [facility] [address] [id number] [place] [address] 10 Nov, 2011 [facility] [place] [facility] [address] [id number] [place] [address] Jul, [facility] [place] [facility] [address] [id number] [place] [address] 12 Nov, 2010 [facility] [place] [facility] [address] [id number] [address] 15 Sep, 2010 [facility] [address] [id number] [address] 10 Sep, 2010 [facility] [id number] [address] 13 Jul, 2010 [facility] [id number] [address] 16 Dec, 2009 [facility] [id number] [address] 17 Aug, 2009 [facility] [id number] [address] Aug, [facility] [id number] [address] Aug, [facility] [address] [address] 28 Jul, 2009 [facility] [address] [id number] [address] 14 Apr, 2009 IMMUNIZATIONS No Known Immunizations SOCIAL HISTORY Never Assessed REASON FOR VISIT Requests return call/ no return call rec''d PLAN OF CARE VITAL SIGNS MEDICATIONS Unknown Medications RESULTS No Results PROCEDURES No Known procedures INSTRUCTIONS MEDICATIONS ADMINISTERED No Known Medications MEDICAL (GENERAL) HISTORY Type Description Date Medical History Hypothyroidism Dx at [facility] was born without a thyroid Medical History 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
--- OUTSIDE RECORDS SUMMARY | 2019-02-11 13:56 | XMS REPORT | Continuity of Care Document ---
Author Organization Unknown Address Unknown Allergies Active Description Code Type Severity Reaction Onset Reported/Identified Relationship to Patient Clinical Status Yes Demerol Drug Allergy N/A N/A 02/08/2009 Yes tetracycline Drug Allergy N/ A N/A 02/08/2009 Yes Demerol Drug Allergy 02/08/2009 Yes tetracycline Drug Allergy 02/08/2009 Yes meperidine [id number] Drug Allergy Mild N/A 11/11/2009 Yes tetracycline [id number] Drug Allergy Mild N/A 11/11/2009 Yes Amoxicillin Drug Allergy N/A N/A 10/19/2012 Yes Amoxicillin Drug Allergy 10/19/2012 Yes amoxicillin [id number] Drug Allergy Unknown PALIPITATIONS 12/11/2014 Medications There is no data. Problems Date Dx Coded Attending Type Code Diagnosis Diagnosed By 06/14/2008 V25.49 Gynecologic Service Prescrip Of Contracept Agent - Repeat Rx 06/14/2008 JARET WHEATLEY DO V25.49 Gynecologic Service Prescrip Of Contracept Agent - Repeat Rx 06/14/2008 JILL WASHINGTON PA-C V25.49 Gynecologic Service Prescrip Of Contracept Agent - Repeat Rx 06/14/2008 JARET WHEATLEY DO V25.49 Gynecologic Service Prescrip Of Contracept Agent - Repeat Rx 06/14/2008 JARET WHEATLEY DO V25.49 Gynecologic Service Prescrip Of Contracept Agent - Repeat Rx 06/14/2008 JARET WHEATLEY DO V25.49 Gynecologic Service Prescrip Of Contracept Agent - Repeat Rx 06/14/2008 TIERNEY FINLEY APRN V25.49 Gynecologic Service Prescrip Of Contracept Agent - Repeat Rx 06/14/2008 JARET WHEATLEY DO V25.49 Gynecologic Service Prescrip Of Contracept Agent - Repeat Rx 09/19/2008 244.9 HYPOTHYROIDISM 09/19/2008 V72.31 Routine Gynecological Examination 09/19/2008 JARET WHEATLEY DO 244.9 HYPOTHYROIDISM 09/19/2008 JARET WHEATLEY DO V72.31 Routine Gynecological Examination 09/19/2008 JILL WASHINGTON PA-C 244.9 HYPOTHYROIDISM 09/19/2008 JILL WASHINGTON PA-C V72.31 Routine Gynecological Examination 09/19/2008 WHEATLEY DO, JARET K 244.9 HYPOTHYROIDISM 09/19/2008 WHEATLEY DO, JARET K V72.31 Routine Gynecological Examination 09/19/2008 WHEATLEY DO, JARET K 244.9 HYPOTHYROIDISM 09/19/2008 WHEATLEY DO, JARET K V72.31 Routine Gynecological Examination 09/19/2008 WHEATLEY DO, JARET K 244.9 HYPOTHYROIDISM 09/19/2008 WHEATLEY DO, JARET K V72.31 Routine Gynecological Examination 09/19/2008 LARRY FINLEY APRNINA R 244.9 HYPOTHYROIDISM 09/19/2008 LARRY FINLEY APRNINA R V72.31 Routine Gynecological Examination 09/19/2008 WHEATLEY DO, JARET K 244.9 HYPOTHYROIDISM 09/19/2008 WHEATLEY DO, JARET K V72.31 Routine Gynecological Examination 02/08/2009 919.5 Insect Bite Nonvenomous Of Other Multiple And Unspecified Sites Infected 02/08/2009 WHEATLEY DO, JARET K 919.5 Insect Bite Nonvenomous Of Other Multiple And Unspecified Sites Infected 02/08/2009 JILL WASHINGTON PA-C 919.5 Insect Bite Nonvenomous Of Other Multiple And Unspecified Sites Infected 02/08/2009 WHEATLEY DO, JARET K 919.5 Insect Bite Nonvenomous Of Other Multiple And Unspecified Sites Infected 02/08/2009 WHEATLEY DO, JARET K 919.5 Insect Bite Nonvenomous Of Other Multiple And Unspecified Sites Infected 02/08/2009 WHEATLEY DO, JARET K 919.5 Insect Bite Nonvenomous Of Other Multiple And Unspecified Sites Infected 02/08/2009 TIERNEY FINLEY APRN R 919.5 Insect Bite Nonvenomous Of Other Multiple And Unspecified Sites Infected 02/08/2009 WHEATLEY DO, JARET K 919.5 Insect Bite Nonvenomous Of Other Multiple And Unspecified Sites Infected 08/08/2009 719.41 Joint Pain, Localized In The Shoulder 08/08/2009 724.5 Backache 08/08/2009 WHEATLEY DO, JARET K 719.41 Joint Pain, Localized In The Shoulder 08/08/2009 WHEATLEY DO, JARET K 724.5 Backache 08/08/2009 JILL WASHINGTON PA-C 719.41 Joint Pain, Localized In The Shoulder 08/08/2009 JILL WASHINGTON PA-C 724.5 Backache 08/08/2009 WHEATLEY DO JARET K 719.41 Joint Pain, Localized In The Shoulder 08/08/2009 WHEATLEY DO, JARET K 724.5 Backache 08/08/2009 WHEATLEY DO, JARET K 719.41 Joint Pain, Localized In The Shoulder 08/08/2009 WHEATLEY DO, JARET K 724.5 Backache 08/08/2009 WHEATLEY DO, JARET K 719.41 Joint Pain, Localized In The Shoulder 08/08/2009 WHEATLEY DO, JARET K 724.5 Backache 08/08/2009 LARRY FINLEY APRNINA R 719.41 Joint Pain, Localized In The Shoulder 08/08/2009 MALIA KRAUS TIERNEY R 724.5 Backache 08/08/2009 WHEATLEY DO, JARTE K 719.41 Joint Pain, Localized In The Shoulder 08/08/2009 WHEATLEY DO, JARET K 724.5 Backache 08/24/2009 V25.41 SURVEILLANCE OF CONTRACEPTIVE PILL 08/24/2009 WHEATLEY DO, JARET K V25.41 SURVEILLANCE OF CONTRACEPTIVE PILL 08/24/2009 JILL WASHINGTON PA-C V25.41 SURVEILLANCE OF CONTRACEPTIVE PILL 08/24/2009 WHEATLEY DO, JARET K V25.41 SURVEILLANCE OF CONTRACEPTIVE PILL 08/24/2009 WHEATLEY DO, JARET K V25.41 SURVEILLANCE OF CONTRACEPTIVE PILL 08/24/2009 WHEATLEY DO JARET K V25.41 SURVEILLANCE OF CONTRACEPTIVE PILL 08/24/2009 MALIA KRAUS TIERNEY R V25.41 SURVEILLANCE OF CONTRACEPTIVE PILL 08/24/2009 WHEATLEY DO, JARET K V25.41 SURVEILLANCE OF CONTRACEPTIVE PILL 10/26/2009 734 FLAT FOOT 10/26/2009 WHEATLEY DO, JARET K 734 FLAT FOOT 10/26/2009 JILL WASHINGTON PA-C 734 FLAT FOOT 10/26/2009 WHEATLEY DO, JARET K 734 FLAT FOOT 10/26/2009 WHEATLEY DO, JARET K 734 FLAT FOOT 10/26/2009 WHEATLEY DO, JARET K 734 FLAT FOOT 10/26/2009 MALIA KRAUS TIERNEY R 734 FLAT FOOT 10/26/2009 WHEATLEY DO, JARET K 734 FLAT FOOT 12/25/2009 599.7 HEMATURIA 12/25/2009 789.00 Abdominal Pain Unspecified Site 12/25/2009 WHEATLEY DO, JARET K 599.7 HEMATURIA 12/25/2009 WHEATLEY DO, JARET K 789.00 Abdominal Pain Unspecified Site 12/25/2009 JILL WASHINGTON PA-C 599.7 HEMATURIA 12/25/2009 JILL WASHINGTON PA-C 789.00 Abdominal Pain Unspecified Site 12/25/2009 WHEATLEY DO, JARET K 599.7 HEMATURIA 12/25/2009 WHEATLEY DO, JARET K 789.00 Abdominal Pain Unspecified Site 12/25/2009 WHEATLEY DO, JARET K 599.7 HEMATURIA 12/25/2009 WHEATLEY DO, JARET K 789.00 Abdominal Pain Unspecified Site 12/25/2009 WHEATLEY DO, JARET K 599.7 HEMATURIA 12/25/2009 WHEATLEY DO, JARET K 789.00 Abdominal Pain Unspecified Site 12/25/2009 MALIA KRAUS, TIERNEY R 599.7 HEMATURIA 12/25/2009 MALIA KRAUS, TIERNEY R 789.00 Abdominal Pain Unspecified Site 12/25/2009 WHEATLEY DO, JARET K 599.7 HEMATURIA 12/25/2009 WHEATLEY DO, JARET K 789.00 Abdominal Pain Unspecified Site 11/23/2010 782.1 Rash 11/23/2010 WHEATLEY DO, JARET K 782.1 Rash 11/23/2010 JILL WASHINGTON PA-C 782.1 Rash 11/23/2010 WHEATLEY DO, JARET K 782.1 Rash 11/23/2010 WHEATLEY DO, JARET K 782.1 Rash 11/23/2010 WHEATLEY DO, JARET K 782.1 Rash 11/23/2010 MALIA KRAUS, TIERNEY R 782.1 Rash 11/23/2010 WHEATLEY DO, JARET K 782.1 Rash 12/04/2010 709.00 Dyschromia Unspecified 12/04/2010 WHEATLEY DO, JARET K 709.00 Dyschromia Unspecified 12/04/2010 JILL WASHINGTON PA-C 709.00 Dyschromia Unspecified 12/04/2010 WHEATLEY DO, JARET K 709.00 Dyschromia Unspecified 12/04/2010 WHEATLEY DO, JARET K 709.00 Dyschromia Unspecified 12/04/2010 WHEATLEY DO, JARET K 709.00 Dyschromia Unspecified 12/04/2010 TIERNEY FINLEY APRN 709.00 Dyschromia Unspecified 12/04/2010 WHEATLEY DO, JARET K 709.00 Dyschromia Unspecified 11/21/2011 V74.5 Std Screen 11/21/2011 V76.2 Cervical Cancer Screening (pap Smear) 11/21/2011 WHEATLEY DO, JARET K V74.5 Std Screen 11/21/2011 WHEATLEY DO, JARET K V76.2 Cervical Cancer Screening (pap Smear) 11/21/2011 JILL WASHINGTON PA-C V74.5 Std Screen 11/21/2011 JILL WASHINGTON PA-C V76.2 Cervical Cancer Screening (pap Smear) 11/21/2011 WHEATLEY DO JARET K V74.5 Std Screen 11/21/2011 WHEATLEY DO JARET K V76.2 Cervical Cancer Screening (pap Smear) 11/21/2011 WHEATLEY , JARET K V74.5 Std Screen 11/21/2011 WHEATLEY DO, JARET K V76.2 Cervical Cancer Screening (pap Smear) 11/21/2011 WHEATLEY , JARET K V74.5 Std Screen 11/21/2011 WHEATLEY DO, JARET K V76.2 Cervical Cancer Screening (pap Smear) 11/21/2011 TIERNEY FINLEY APRN R V74.5 Std Screen 11/21/2011 TIERNEY FINLEY APRN V76.2 Cervical Cancer Screening (pap Smear) 11/21/2011 WHEATLEY DO JARET K V74.5 Std Screen 11/21/2011 WHEATLEY , JARET K V76.2 Cervical Cancer Screening (pap Smear) 05/15/2012 Ot 599.0 URIN TRACT INFECTION NOS 05/15/2012 Ot 724.2 LUMBAGO 05/18/2012 793.11 SOLITARY PULMONARY NODULE 05/18/2012 RAFAEL WHEATLEY DOA K 793.11 SOLITARY PULMONARY NODULE 05/18/2012 JILL WASHINGTON PA-C 793.11 SOLITARY PULMONARY NODULE 05/18/2012 JARET WHEATLEY DO 793.11 SOLITARY PULMONARY NODULE 05/18/2012 JARET WHEATLEY DO K 793.11 SOLITARY PULMONARY NODULE 05/18/2012 DIONI MENDOZA, JARET K 793.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 PULMONARY NODULE 05/18/2012 MALIA RKAUS, TIERNEY R 793.11 SOLITARY PULMONARY NODULE 05/18/2012 DIONI MENDOZA, JARET K 793.11 SOLITARY PULMONARY NODULE 10/19/2012 WHEATLEY DO, JARET K 461.9 SINUSITIS ACUTE 10/19/2012 DIONI MENDOZA JARET K V65.42 COUNSELING - SMOKING CESSATION 10/19/2012 DIONI MENDOZA JARET K V76.10 BREAST CANCER SCREENING 10/19/2012 WHEATLEY DO, JARET K V76.2 CERVICAL CANCER SCREENING (PAP SMEAR) 10/19/2012 JILL WASHINGTON PA-C 461.9 SINUSITIS ACUTE 10/19/2012 JILL WASHINGTON PA-C V65.42 COUNSELING - SMOKING CESSATION 10/19/2012 JILL WASHINGTON PA-C V76.10 BREAST CANCER SCREENING 10/19/2012 JILL WASHINGTON PA-C V76.2 CERVICAL CANCER SCREENING (PAP SMEAR) 10/19/2012 WHEATLEY DO JARET K 461.9 SINUSITIS ACUTE 10/19/2012 WEHATLEY DO, JARET K V65.42 COUNSELING - SMOKING CESSATION 10/19/2012 WHEATLEY DO, JARET K V76.10 BREAST CANCER SCREENING 10/19/2012 WHEATLEY DO, JARET K V76.2 CERVICAL CANCER SCREENING (PAP SMEAR) 10/19/2012 WHEATLEY DO, JARET K 461.9 SINUSITIS ACUTE 10/19/2012 WHEATLEY DO, JARET K V65.42 COUNSELING - SMOKING CESSATION 10/19/2012 WHEATLEY DO JARET K V76.10 BREAST CANCER SCREENING 10/19/2012 WHEATLEY DO, JARET K V76.2 CERVICAL CANCER SCREENING (PAP SMEAR) 10/19/2012 WHEATLEY DO, JARET K 461.9 SINUSITIS ACUTE 10/19/2012 WHEATLEY DO JARET K V65.42 COUNSELING - SMOKING CESSATION 10/19/2012 WHEATLEY DO JARET K V76.10 BREAST CANCER SCREENING 10/19/2012 WHEATLEY DO, JARET K V76.2 CERVICAL CANCER SCREENING (PAP SMEAR) 10/19/2012 TIERNEY FINLEY APRN R 461.9 SINUSITIS ACUTE 10/19/2012 TIERNEY FINLEY APRN R V65.42 COUNSELING - SMOKING CESSATION 10/19/2012 TIERNEY FINLEY APRN R V76.10 BREAST CANCER SCREENING 10/19/2012 TIERNEY FINLEY APRN R V76.2 CERVICAL CANCER SCREENING (PAP SMEAR) 10/19/2012 JARET WHEATLEY DO 461.9 SINUSITIS ACUTE 10/19/2012 JARET WHEATLEY DO K V65.42 COUNSELING - SMOKING CESSATION 10/19/2012 JARET WHEATLEY DO K V76.10 BREAST CANCER SCREENING 10/19/2012 JARET WHEATLEY DO K V76.2 CERVICAL CANCER SCREENING (PAP SMEAR) 11/03/2013 RAFAEL WHEATLEY DOA K 626.0 ABSENCE OF MENSTRUATION 11/03/2013 RAFAEL WHEATLEY DOA K 627.2 SYMPTOMATIC MENOPAUSAL OR FEMALE CLIMACTERIC STATES 11/03/2013 RAFAEL WHEATLEY DOA K 626.0 ABSENCE OF MENSTRUATION 11/03/2013 JARET WHEATLEY DO K 627.2 SYMPTOMATIC MENOPAUSAL OR FEMALE CLIMACTERIC STATES 11/03/2013 TIERNEY FINLEY APRN R 626.0 ABSENCE OF MENSTRUATION 11/03/2013 TIERNEY FINLEY APRN R 627.2 SYMPTOMATIC MENOPAUSAL OR FEMALE CLIMACTERIC STATES 11/03/2013 JARET WHEATLEY DO K 626.0 ABSENCE OF MENSTRUATION 11/03/2013 RAFAEL WHEATLEY DOA K 627.2 SYMPTOMATIC MENOPAUSAL OR FEMALE CLIMACTERIC STATES 08/09/2014 TIERNEY FINLEY APRN R 728.85 SPASM OF MUSCLE 08/09/2014 JARET WHEATLEY DO K 728.85 SPASM OF MUSCLE 09/09/2014 JARET WHEATLEY DO K 522.5 PERIAPICAL ABSCESS WITHOUT SINUS 12/11/2014 Ot 599.0 URIN TRACT INFECTION NOS 12/11/2014 Ot 789.00 ABDOMINAL PAIN, UNSPECIFIED SITE 09/19/2015 MOO SANTIAGO Ot F17.210 NICOTINE DEPENDENCE, CIGARETTES, UNCOMPL 09/19/2015 MOO SANTIAGO Ot M46.1 SACROILIITIS, NOT ELSEWHERE CLASSIFIED 09/19/2015 MOO SANTIAGO Ot M54.16 RADICULOPATHY, LUMBAR REGION 09/19/2015 Ot V76.12 09/19/2015 Ot 492.8 09/19/2015 Ot 518.89 09/19/2015 Ot 793.11 09/19/2015 AMARI CRONIN Ot V76.12 02/09/2016 Ot V76.12 OTH SCREEN MAMMO-MALIGN NEOPLASM OF [place] 02/09/2016 Ot 492.8 EMPHYSEMA NEC 02/09/2016 Ot 518.89 OTHER DISEASES OF LUNG, NEC 02/09/2016 Ot 793.11 SOLITARY PULMONARY NODULE 02/09/2016 AMARI CRONINP Ot V76.12 OTH SCREEN MAMMO-MALIGN NEOPLASM OF [place] 10/30/2016 JENNIFER BABCOCK MD Ot F17.210 NICOTINE DEPENDENCE, CIGARETTES, UNCOMPL 10/30/2016 JENNIFER BABCOCK MD Ot N20.1 CALCULUS OF URETER 10/30/2016 JENNIFER BABCOCK MD Ot R10.32 LEFT LOWER QUADRANT PAIN 10/30/2016 Ot V76.12 OTH SCREEN MAMMO-MALIGN NEOPLASM OF [place] 10/30/2016 Ot 492.8 EMPHYSEMA NEC 10/30/2016 Ot 518.89 OTHER DISEASES OF LUNG, NEC 10/30/2016 Ot 793.11 SOLITARY PULMONARY NODULE 10/30/2016 AMARI CRONIN [facility] Ot V76.12 OTH SCREEN MAMMO-MALIGN NEOPLASM OF [place] 11/18/2016 Ot V76.12 OTH SCREEN MAMMO-MALIGN NEOPLASM OF [place] 11/18/2016 Ot 492.8 EMPHYSEMA NEC 11/18/2016 Ot 518.89 OTHER DISEASES OF LUNG, NEC 11/18/2016 Ot 793.11 SOLITARY PULMONARY NODULE 11/18/2016 AMARI CRONIN [facility] Ot V76.12 OTH SCREEN MAMMO-MALIGN NEOPLASM OF [place] 12/12/2016 Ot V76.12 OTH SCREEN MAMMO-MALIGN NEOPLASM OF [place] 12/12/2016 Ot 492.8 EMPHYSEMA NEC 12/12/2016 Ot 518.89 OTHER DISEASES OF LUNG, NEC 12/12/2016 Ot 793.11 SOLITARY PULMONARY NODULE 12/12/2016 AMARI CRONIN [facility] Ot V76.12 OTH SCREEN MAMMO-MALIGN NEOPLASM OF [place] 06/16/2017 Ot V76.12 OTH SCREEN MAMMO-MALIGN NEOPLASM OF [place] 06/16/2017 Ot 492.8 EMPHYSEMA NEC 06/16/2017 Ot 518.89 OTHER DISEASES OF LUNG, NEC 06/16/2017 Ot 793.11 SOLITARY PULMONARY NODULE 06/16/2017 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 Metabolic Panel (14) - 09/10/16 10:06 Glucose, Serum 98 mg/dL 65-99 BUN 13 mg/dL 6-24 Creatinine, Serum 0.83 mg/dL 0.57-1.00 eGFR If NonAfricn Am 85 mL/min/1.73 >59 eGFR If Africn Am 98 mL/min/1.73 >59 BUN/Creatinine Ratio 16 9-23 Sodium, Serum 140 mmol/L 136-144 Potassium, Serum 4.7 mmol/L 3.5-5.2 Chloride, Serum 101 mmol/L 97-106 Carbon Dioxide, Total 27 mmol/L 18-29 Calcium, Serum 9.5 mg/dL 8.7-10.2 Protein, Total, Serum 7.2 g/dL 6.0-8.5 Albumin, Serum 4.4 g/dL 3.5-5.5 Globulin, Total 2.8 g/dL 1.5-4.5 A/G Ratio 1.6 1.1-2.5 Bilirubin, Total 0.5 mg/dL 0.0-1.2 Alkaline Phosphatase, S 110 IU/L 39-117 AST (SGOT) 18 IU/L 0-40 ALT (SGPT) 13 IU/L 0-32 Lipid Panel - 09/10/16 10:06 Cholesterol, Total 291 mg/dL 100-199 Triglycerides 132 mg/dL 0-149 HDL Cholesterol 48 mg/dL >39 VLDL Cholesterol Pankaj 26 mg/dL 5-40 LDL Cholesterol Calc 217 mg/dL 0-99 TSH - 09/10/16 10:06 TSH 3.620 uIU/mL 0.450-4.500 Complete blood count (CBC) with automated white blood cell (WBC) differential - 10/30/16 10:55 Blood leukocytes automated count (number/volume) 9.6 10*3/uL 4.3-11.0 Blood erythrocytes automated count (number/volume) 5.07 10*6/uL 4.35-5.85 Venous blood hemoglobin measurement (mass/volume) 15.6 g/dL 11.5-16.0 Blood hematocrit (volume fraction) 46 % 35-52 Automated erythrocyte mean corpuscular volume 91 [foz_us] 80-99 Automated erythrocyte mean corpuscular hemoglobin (mass per erythrocyte) 31 pg 25-34 Automated erythrocyte mean corpuscular hemoglobin concentration measurement ( mass/volume) 34 g/dL 32-36 Automated erythrocyte distribution width ratio 14.1 % 10.0-14.5 Automated blood platelet count (count/volume) 192 10*3/uL 130-400 Automated blood platelet mean volume measurement 9.7 [foz_us] 7.4-10.4 Automated blood neutrophils/100 leukocytes 76 % 42-75 Automated blood lymphocytes/100 leukocytes 16 % 12-44 Blood monocytes/100 leukocytes 8 % 0-12 Automated blood eosinophils/100 leukocytes 1 % 0-10 Automated blood basophils/100 leukocytes 0 % 0-10 Blood neutrophils automated count (number/volume) 7.3 10*3 1.8-7.8 Blood lymphocytes automated count (number/volume) 1.5 10*3 1.0-4.0 Blood monocytes automated count (number/volume) 0.7 10*3 0.0-1.0 Automated eosinophil count 0.1 10*3/uL 0.0-0.3 Automated blood basophil count (count/volume) 0.0 10*3/uL 0.0-0.1 Comprehensive metabolic panel - 10/30/16 10:55 Serum or plasma sodium measurement (moles/volume) 141 mmol/L 135-145 Serum or plasma potassium measurement (moles/volume) 4.2 mmol/L 3.6-5.0 Serum or plasma chloride measurement (moles/volume) 108 mmol/L 98-107 Carbon dioxide 23 mmol/L 21-32 Serum or plasma anion gap determination (moles/volume) 10 mmol/L 5-14 Serum or plasma urea nitrogen measurement (mass/volume) 15 mg/dL 7-18 Serum or plasma creatinine measurement (mass/volume) 0.91 mg/dL 0.60-1.30 Serum or plasma urea nitrogen/creatinine mass ratio 16 NRG Serum or plasma creatinine measurement with calculation of estimated glomerular filtration rate > NRG Serum or plasma glucose measurement (mass/volume) 120 mg/dL 70-105 Serum or plasma calcium measurement (mass/volume) 9.3 mg/dL 8.5-10.1 Serum or plasma total bilirubin measurement (mass/volume) 0.8 mg/dL 0.1-1.0 Serum or plasma alkaline phosphatase measurement (enzymatic activity/volume) 103 U/L 40-136 Serum or plasma aspartate aminotransferase measurement (enzymatic activity/ volume) 15 U/L 5-34 Serum or plasma alanine aminotransferase measurement (enzymatic activity/volume ) 13 U/L 0-55 Serum or plasma protein measurement (mass/volume) 7.1 g/dL 6.4-8.2 Serum or plasma albumin measurement (mass/volume) 4.3 g/dL 3.2-4.5 Complete urinalysis with reflex to culture - 10/30/16 11:30 Urine color determination NAHID NRG Urine clarity determination VERY CLOUDY NRG Urine pH measurement by test strip 6 5-9 Specific gravity of urine by test strip 1.020 1.016- 1.022 Urine protein assay by test strip, semi-quantitative 2+ NEGATIVE Urine glucose detection by automated test strip NEGATIVE NEGATIVE Erythrocytes detection in urine sediment by light microscopy 5+ NEGATIVE Urine ketones detection by automated test strip NEGATIVE NEGATIVE Urine nitrite detection by test strip POSITIVE NEGATIVE Urine total bilirubin detection by test strip NEGATIVE NEGATIVE Urine urobilinogen measurement by automated test strip (mass/volume) NORMAL NORMAL Urine leukocyte esterase detection by dipstick 2+ NEGATIVE Automated urine sediment erythrocyte count by microscopy (number/high power field) > [HPF] NRG Automated urine sediment leukocyte count by microscopy (number/high power field ) [HPF] NRG Bacteria detection in urine sediment by light microscopy MODERATE NRG Squamous epithelial cells detection in urine sediment by light microscopy 5-10 NRG Crystals detection in urine sediment by light microscopy NONE NRG Casts detection in urine sediment by light microscopy NONE NRG Mucus detection in urine sediment by light microscopy NEGATIVE NRG Complete urinalysis with reflex to culture YES NRG Bacterial urine culture - 10/30/16 11:30 Bacterial urine culture [id number] NRG COLONY COUNT >100,000/ML NRG FTX;REPORTABLE SENSITIVITY REPORTED 11/01/15 9:50 NRG FREE TEXT ENTRY 2 PLUS, NRG FREE TEXT ENTRY 3 MIXED GRAM POSITIVE MURPHY <10,000/ML NR Bacterial susceptibility panel - 10/30/16 11:30 Gentamicin susceptibility test by minimum inhibitory concentration < = NRG Trimethoprim/sulfamethoxazole susceptibility test by minimum inhibitoryconcentration <= NRG Ampicillin susceptibility test by minimum inhibitory concentration > = NRG Tobramycin susceptibility test by minimum inhibitory concentration < = NRG Cefazolin susceptibility test by minimum inhibitory concentration < = NRG Ceftriaxone susceptibility test by minimum inhibitory concentration <= NRG Ampicillin/sulbactam susceptibility test by minimum inhibitory concentration 16 NRG Piperacillin/tazobactam susceptibility test by minimum inhibitory concentration <= NRG Ciprofloxacin susceptibility test by minimum inhibitory concentration <= NRG Meropenem susceptibility test by minimum inhibitory concentration < = NRG Nitrofurantoin susceptibility test by minimum inhibitory concentration <= NRG Aztreonam susceptibility test by minimum inhibitory concentration < = NRG Extended spectrum beta lactamase (ESBL) producing bacteria susceptibility test by minimum inhibitory concentration - [facility] Urine Culture, Routine - 02/13/17 12:13 Urine Culture, Routine Note Comp. Metabolic Panel (14) - 05/12/17 17:03 Glucose, Serum 95 mg/dL 65-99 BUN 18 mg/dL 6-24 Creatinine, Serum 0.86 mg/dL 0.57-1.00 eGFR If NonAfricn Am 81 mL/min/1.73 >59 eGFR If Africn Am 94 mL/min/1.73 >59 BUN/Creatinine Ratio 21 9-23 Sodium, Serum 141 mmol/L 134-144 Potassium, Serum 4.5 mmol/L 3.5-5.2 Chloride, Serum 100 mmol/L 96-106 Carbon Dioxide, Total 23 mmol/L 18-29 Calcium, Serum 9.7 mg/dL 8.7-10.2 Protein, Total, Serum 7.3 g/dL 6.0-8.5 Albumin, Serum 4.8 g/dL 3.5-5.5 Globulin, Total 2.5 g/dL 1.5-4.5 A/G Ratio 1.9 1.2-2.2 Bilirubin, Total 0.5 mg/dL 0.0-1.2 Alkaline Phosphatase, S 101 IU/L 39-117 AST (SGOT) 13 IU/L 0-40 ALT (SGPT) 9 IU/L 0-32 TSH - 05/12/17 17:03 TSH 1.750 uIU/mL 0.450-4.500 TSH - 06/30/18 14:16 TSH 7.44 mIU/L NRG CULTURE, URINE - 08/02/18 15:23 CULTURE, URINE, ROUTINE SEE NOTE NRG LIPID PANEL - 09/27/18 08:25 CHOLESTEROL, TOTAL 193 mg/dL <200 HDL CHOLESTEROL 45 mg/dL >50 TRIGLYCERIDES 116 mg/dL <150 LDL-CHOLESTEROL 126 mg/dL (calc) NRG CHOL/HDLC RATIO 4.3 (calc) <5.0 NON HDL CHOLESTEROL 148 mg/dL (calc) <130 TSH - 09/27/18 08:25 TSH 0.62 mIU/L NRG LIPID PANEL - 01/04/19 08:56 CHOLESTEROL, TOTAL 177 mg/dL <200 HDL CHOLESTEROL 43 mg/dL >50 TRIGLYCERIDES 158 mg/dL <150 LDL-CHOLESTEROL 106 mg/dL (calc) NRG CHOL/HDLC RATIO 4.1 (calc) <5.0 NON HDL CHOLESTEROL 134 mg/dL (calc) <130 TSH - 01/04/19 08:56 TSH 0.23 mIU/L NRG Encounters ACCT No. Visit Date/Time Discharge Status Pt. Type Provider Facility Loc./Unit Complaint [id number] 09/09/2014 10:30:00 09/09/2014 23:59:59 CLS Outpatient JARET WHEATLEY DO [id number] 08/09/2014 16:06:00 08/09/2014 23:59:59 CLS Outpatient TIERNEY FINLEY APRN [id number] 06/16/2014 13:05:00 06/16/2014 23:59:59 CLS Outpatient JARET WHEATLEY DO [id number] 11/03/2013 09:26:00 11/03/2013 23:59:59 CLS Outpatient JARET WHEATLEY DO [id number] 10/24/2013 10:42:00 10/24/2013 23:59:59 CLS Outpatient JARET WHEATLEY DO [id number] 04/08/2013 11:02:00 04/08/2013 23:59:59 CLS Outpatient JILL WASHINGTON PA-C [id number] 10/19/2012 07:53:00 10/19/2012 23:59:59 CLS Outpatient JARET WHEATLEY DO [id number] 04/29/2012 11:29:00 04/29/2012 23:59:59 CLS Outpatient [id number] 02/18/2017 19:07:00 Document Registration [id number] 06/16/2017 13:12:00 06/16/2017 23:59:59 CLS Outpatient KAROL BURNETTWBENITO Oquendo [employer] [facility] RAD SCREENING Z12.31 [id number] 10/30/2016 10:20:00 10/30/2016 14:37:00 DIS Emergency JENNIFER BABCOCK MD [facility] ER LOWER ABD PAIN [id number] 09/19/2015 18:41:00 09/19/2015 20:50:00 DIS Emergency MOO SANTIAGO [facility] ER FALL/TAILBONE PAIN [id number] 03/17/2013 09:49:00 03/17/2013 23:59:59 CLS Outpatient AMARI CRONIN [employer] [facility] RAD SCREENING [id number] 09/19/2015 20:55:00 Document Registration [id number] 09/19/2015 20:55:00 Document Registration [id number] 12/11/2014 17:52:00 Document Registration [id number] 05/21/2012 08:52:00 Document Registration [id number] 05/15/2012 10:44:00 Document Registration [id number] 02/04/2012 07:13:00 Document Registration [id number] 05/13/2017 08:35:00 Document Registration [id number] 09/11/2016 08:44:00 Document Registration [id number] 01/04/2019 08:40:00 01/04/2019 23:59:59 CLS Outpatient MARYANN RIVERAKAROL Banks [facility] [id number] 01/04/2019 08:40:00 Document Registration [id number] 09/27/2018 08:40:00 Document Registration [id number] 08/02/2018 15:00:00 Document Registration [id number] 06/30/2018 14:00:00 Document Registration
[2019-02-11] MEDS ORDERED: NS IV 1000 ML 1,000 ML IV ONE (14:02)
[2019-02-11 14:06] LABS: BILIRUBIN,URINE NEGATIVE (NEGATIVE); CLARITY,URINE SLIGHTLY CLOUDY; COLOR,URINE AMBER; GLUCOSE, URINE (UA) NEGATIVE (NEGATIVE); KETONES,URINE 1+ (NEGATIVE); LEUKOCYTE ESTERASE ,URINE 1+ (NEGATIVE); NITRITE,URINE NEGATIVE (NEGATIVE); PH,URINE 5 (5-9); PROTEIN,URINE 1+ (NEGATIVE); UROBILINOGEN,URINE 4 MG/DL (NORMAL)
--- NOTE | 2019-02-11 14:14 | ED Abdominal Pain ---
General Chief Complaint: Abdominal/GI Problems Stated Complaint: ABD/BACK PAIN Nursing Triage Note: Pt complaining of lower abd pain radiating to back. Pt seen in [facility] yesterday and was checked for a UTI but was told her urine was fine. Sepsis Screen: No Definite Risk Source of Information: Patient Exam Limitations: No Limitations History of Present Illness Date Seen by Provider: February 11, 2019 Time Seen by Provider: 13:50 Initial Comments This 48-year-old woman presents to the emergency room with 5 days of pain in the lower back and across the lower abdomen. Pain started on Thursday in the left lower back after lifting something heavy. Pain then moved to the right lower back and then gradually moved across the lower abdomen. She has had some nausea without vomiting. Stools have been loose. Her last bowel movement was this morning. She is afebrile. She does have history of ureteral stones requiring intervention. She has not noticed any blood in her urine but her urine has been darker recently. She states her pain is 10 out of 10 which does not match her demeanor. She reports having a negative UA at the [facility] clinic yesterday. Review of chart notes a visit to the ER in 2017 with ureteral stones. Allergies and Home Medications Allergies Coded Allergies: meperidine (Unverified Allergy, Mild, 11/11/09) tetracycline (Unverified Allergy, Mild, 11/11/09) amoxicillin (Unverified Allergy, Unknown, PALIPITATIONS, 12/11/14) Home Medications Hydrocodone Bit/Acetaminophen 1 Tab Tab, 1 EACH PO Q4-6HR PRN for PAIN-MODERATE Prescribed by: JILL TRIPLETT on 02/11/19 165 Hydrocodone/Acetaminophen 1 Each Tablet, 1 EACH PO 4 times a day Prescribed by: JENNIFER BABCOCK on 10/30/16 1430 Levothyroxine Sodium 88 Mcg Tablet, 1 EACH PO DAILY, (Reported) Ondansetron 4 Mg Tab.rapdis, 4 MG PO Q4H PRN for NAUSEA/VOMITING-1ST LINE Prescribed by: JILL TRIPLETT on 02/11/19 165 Patient Home Medication List Home Medication List Reviewed: Yes Review of Systems Review of Systems Constitutional: no symptoms reported EENTM: No Symptoms Reported Respiratory: No Symptoms Reported Cardiovascular: No Symptoms Reported Gastrointestinal: See HPI Genitourinary: See HPI Musculoskeletal: see HPI Skin: no symptoms reported Psychiatric/Neurological: No Symptoms Reported Endocrine: No Symptoms Reported Hematologic/Lymphatic: No Symptoms Reported Past Ymnqbec-Jsmknj-Kgexny Hx Past Med/Social Hx: Reviewed and Corrections made Patient Social History Alcohol Use: Denies Use Recreational Drug Use: No Smoking Status: Current Everyday Smoker Type Used: Cigarettes 2nd Hand Smoke Exposure: Yes Recent Foreign Travel: No Contact w/Someone Who Travel: No Recent Infectious Disease Expo: No Recent Hopitalizations: No Seasonal Allergies Seasonal Allergies: Yes Past Medical History Surgeries: Yes (KIDNEY STONE REMOVAL, D&C) Adenoidectomy, Renal (ureteral stents), Tonsillectomy Respiratory: No Cardiac: Yes High Cholesterol Neurological: No Reproductive Disorders: No 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 oz. 62.523357wy; 22.31 BMI Method:Stated General Appearance: WD/WN, no apparent distress HEENT: PERRL/EOMI, normal ENT inspection Neck: normal inspection Respiratory: lungs clear, normal breath sounds, no respiratory distress, no accessory muscle use Cardiovascular: regular rate, rhythm, no edema, no murmur Gastrointestinal: normal bowel sounds, soft; No distended; tenderness (in the central pelvic region) Extremities: normal inspection, no pedal edema Neurologic/Psychiatric: body team member II-XII nml as tested, no motor/sensory deficits, alert, normal mood/affect, oriented x 3 Skin: normal color, warm/dry Progress/Results/Core Measures Results/Orders Lab Results Laboratory Tests Test 02/11/19 13:56 02/11/19 14:08 Range/Units Urine Color NAHID H Urine Clarity SLIGHTLY CLOUDY Urine pH 5 5-9 Urine Specific [place] 1.025 H 1.016-1.022 Urine Protein 1+ H NEGATIVE Urine Glucose (UA) NEGATIVE NEGATIVE Urine Ketones 1+ H NEGATIVE Urine Nitrite NEGATIVE NEGATIVE Urine Bilirubin NEGATIVE NEGATIVE Urine Urobilinogen 4 H NORMAL MG/DL Urine Leukocyte Esterase 1+ H NEGATIVE Urine RBC (Auto) NEGATIVE NEGATIVE Urine RBC NONE /HPF Urine WBC RARE /HPF Urine Squamous Epithelial Cells 5-10 /HPF Urine Crystals NONE /LPF Urine Bacteria FEW H /HPF Urine Casts NONE /LPF Urine Mucus LARGE H /LPF Urine Culture Indicated NO White Blood Count 11.0 4.3-11.0 10^3/uL Red Blood Count 5.36 4.35-5.85 10^6/uL Hemoglobin 16.4 H 11.5-16.0 G/DL Hematocrit 48 35-52 % Mean Corpuscular Volume 90 80-99 FL Mean Corpuscular Hemoglobin 31 25-34 PG Mean Corpuscular Hemoglobin Concent 34 32-36 G/DL Red Cell Distribution Width 13.8 10.0-14.5 % Platelet Count 217 130-400 10^3/uL Mean Platelet Volume 10.5 H 7.4-10.4 FL Neutrophils (%) (Auto) 69 42-75 % Lymphocytes (%) (Auto) 23 12-44 % Monocytes (%) (Auto) 7 0-12 % Eosinophils (%) (Auto) 1 0-10 % Basophils (%) (Auto) 0 0-10 % Neutrophils # (Auto) 7.6 1.8-7.8 X 10^3 Lymphocytes # (Auto) 2.5 1.0-4.0 X 10^3 Monocytes # (Auto) 0.8 0.0-1.0 X 10^3 Eosinophils # (Auto) 0.1 0.0-0.3 10^3/uL Basophils # (Auto) 0.0 0.0-0.1 10^3/uL Sodium Level 140 135-145 MMOL/L Potassium Level 3.9 3.6-5.0 MMOL/L Chloride Level 107 98-107 MMOL/L Carbon Dioxide Level 23 21-32 MMOL/L Anion Gap 10 5-14 MMOL/L Blood Urea Nitrogen 14 7-18 MG/DL Creatinine 0.84 0.60-1.30 MG/DL Estimat Glomerular Filtration Rate > 60 BUN/Creatinine Ratio 17 Glucose Level 89 70-105 MG/DL Calcium Level 10.0 8.5-10.1 MG/DL Corrected Calcium 8.5-10.1 MG/DL Total Bilirubin 0.8 0.1-1.0 MG/DL Aspartate Amino Transf (AST/SGOT) 15 5-34 U/L Alanine Aminotransferase (ALT/SGPT) 13 0-55 U/L Alkaline Phosphatase 117 40-136 U/L Total Protein 7.8 6.4-8.2 GM/DL Albumin 4.6 H 3.2-4.5 GM/DL Lipase 17 8-78 U/L Serum Test, Qualitative NEGATIVE NEGATIVE My Orders Orders - JILL ROMERO MD Ua Culture If Indicated (02/11/19 13:49) Cbc With Automated Diff (02/11/19 14:02) Comprehensive Metabolic Panel (02/11/19 14:02) Hcg,Qualitative Serum (02/11/19 14:02) Lipase (02/11/19 14:02) Ed Iv/Invasive Line Start (02/11/19 14:02) Ns Iv 1000 Ml (Sodium Chloride 0.9%) (02/11/19 14:02) Ondansetron Injection (Zofran Injectio (02/11/19 14:15) Ketorolac Injection (Toradol Injection) (02/11/19 14:15) Ct Abdomen/Pelvis W (02/11/19 15:07) Iohexol Injection (Omnipaque 350 Mg/Ml 1 (02/11/19 15:15) Received Contrast (Hold Metformin- Contr (02/11/19 15:15) Medications Given in ED Vital Signs/I&O 02/11/19 02/11/19 13:50 16:57 Temp 97.7 Pulse 83 78 Resp 16 16 B/P (MAP) 110/86 (94) 110/86 (94) Pulse Ox 99 99 O2 Delivery Room Air Blood Pressure Mean: 94 Progress Progress Note #1: Time: 14:24 Progress Note Patient seen and examined. Labs were ordered. Symptoms are being treated with Toradol and Zofran. Progress Note #2: Time: 15:08 Progress Note Patient had some improvement in symptoms with treatment. Labs and urinalysis did not give any clear indication to the cause of her pain. I discussed further options with the patient including the option for CT scan. Risks and benefits were reviewed. Patient elects to proceed with CT scan. Diagnostic Imaging Diagonstic Imaging: CT Plain Films/CT/US/NM/MRI: abdomen, pelvis Comments CT abdomen and pelvis viewed by me and report reviewed. See report below: NAME: KINGSLEY WALSH [facility] REC#: [id number] PT STATUS: REG ER : 1970 PHYSICIAN: JILL ROMERO MD ADMIT DATE: 02/11/19/ER Signed Date of Exam: 02/11/19 CT ABDOMEN/PELVIS W PROCEDURE: CT abdomen and pelvis with contrast. TECHNIQUE: Multiple contiguous axial images were obtained through the abdomen and pelvis after administration of intravenous contrast. Auto Exposure Controls were utilized during the CT exam to meet ALARA standards for radiation dose reduction. INDICATION: Abdominal pain x1 week. The lung bases are clear. Liver appears normal. Gallbladder is present. Pancreas is normal. Spleen is not enlarged. Adrenals are normal. Kidneys appear normal. Small bowel is not dilated. Appendix is unremarkable. Colon appears normal. Uterus is present. Adnexa appear normal. There is no intraperitoneal free air or free fluid. Urinary bladder is normal. IMPRESSION: Mild calcific atherosclerosis of the aorta. No acute abnormality seen in the abdomen or pelvis. Dictated by: Dictated on workstation # [id number] Dict: 02/11/19 1557 Trans: 02/11/19 1634 Interpreted by: REID RUCKER MD Electronically signed by: REID RUCKER MD 02/11/19 1634 Departure Impression Primary Impression: Lower abdominal pain Additional Impressions: Nausea Pain of right sacroiliac joint Disposition: HOME, SELF-CARE Condition: Improved Departure-Patient Inst. Decision time for Depature: 16:51 Referrals: JARET WHEATLEY DO (PCP) Primary Care Physician STACI BURNETT (Family) Primary Care Physician Patient Instructions: Acute Abdomen (Belly Pain), Adult (DC) Add. Discharge Instructions: Follow-up with your primary care provider as soon as possible. For pain you may use ibuprofen up to 600 mg every 6 hours as needed. For severe pain not controlled by ibuprofen, you may use the hydrocodone as prescribed. Use Zofran (ondansetron) as prescribed for nausea and vomiting. Return to care if you have worsening symptoms. Drink plenty of clear liquids and gradually advance your diet with small quantities of bland food as tolerated. All discharge instructions reviewed with patient and/or family. Voiced understanding. Scripts Hydrocodone Bit/Acetaminophen (Hydrocodone/Acetaminophen 5/325mg Tablet) 1 Tab Tab 1 EACH PO Q4-6HR PRN for PAIN-MODERATE MDD 10, #8 TAB Prov: JILL ROMERO MD 02/11/19 Ondansetron (Ondansetron Odt) 4 Mg Tab.rapdis 4 MG PO Q4H PRN for NAUSEA/VOMITING-1ST LINE, #10 TAB Prov: JILL ROMERO MD 02/11/19 Copy Copies To 1: JARET WHEATLEY JOSHUA T MD February 11, 2019 14:14
[2019-02-11 14:15] LABS: BACTERIA,URINE FEW /HPF; WBC,URINE RARE /HPF
[2019-02-11] MEDS ORDERED: ONDANSETRON 4 MG/2 ML (SDV) Z0FRAN IVP ONE (14:15)
[2019-02-11] MEDS ORDERED: KETOROLAC 30 MG/ML VIAL IVP ONE (14:15)
[2019-02-11 14:17] LABS: BASOPHILS % (AUTO) 0 % (0-10); EOSINOPHILS # (AUTO) 0.1 10^3/uL (0.0-0.3); EOSINOPHILS % (AUTO) 1 % (0-10); HEMATOCRIT 48 % (35-52); HEMOGLOBIN 16.4 G/DL (11.5-16.0); LYMPHOCYTES # (AUTO) 2.5 X 10^3 (1.0-4.0); LYMPHOCYTES % (AUTO) 23 % (12-44); MEAN CORPUSCULAR HEMOGLOBIN 31 PG (25-34); MEAN CORPUSCULAR HGB CONC 34 G/DL (32-36); MEAN CORPUSCULAR VOLUME 90 FL (80-99); MEAN PLATELET VOLUME 10.5 FL (7.4-10.4); MONOCYTES # (AUTO) 0.8 X 10^3 (0.0-1.0); MONOCYTES % (AUTO) 7 % (0-12); NEUTROPHILS # (AUTO) 7.6 X 10^3 (1.8-7.8); NEUTROPHILS % (AUTO) 69 % (42-75); PLATELET COUNT 217 10^3/uL (130-400); RED CELL DISTRIBUTION WIDTH 13.8 % (10.0-14.5)
[2019-02-11 14:40] LABS: ALANINE AMINOTRANSFERASE 13 U/L (0-55); ALBUMIN 4.6 GM/DL (3.2-4.5); ALKALINE PHOSPHATASE 117 U/L (40-136); BILIRUBIN,TOTAL 0.8 MG/DL (0.1-1.0); BUN/CREATININE RATIO 17; CARBON DIOXIDE 23 MMOL/L (21-32); CHLORIDE 107 MMOL/L (98-107); CREATININE SERUM 0.84 MG/DL (0.60-1.30); GFR ESTIMATED > 60; GLUCOSE 89 MG/DL (70-105); LIPASE 17 U/L (8-78); POTASSIUM 3.9 MMOL/L (3.6-5.0); SODIUM 140 MMOL/L (135-145); TOTAL PROTEIN 7.8 GM/DL (6.4-8.2)
[2019-02-11] MEDS ORDERED: IOHEXOL 350 MG/ML 100 ML (OMNIPAQUE 350) VIAL IV ONE (15:15)
[2019-02-11] MEDS ORDERED: HOLD METFORMIN - RECEIVED CONTRAST 20 ML VIAL IV SCH (15:15)
--- NOTE | 2019-02-11 16:03 | Diagnostic Imaging Report ---
PROCEDURE: CT abdomen and pelvis with contrast. TECHNIQUE: Multiple contiguous axial images were obtained through the abdomen and pelvis after administration of intravenous contrast. Auto Exposure Controls were utilized during the CT exam to meet ALARA standards for radiation dose reduction. INDICATION: Abdominal pain x1 week. The lung bases are clear. Liver appears normal. Gallbladder is present. Pancreas is normal. Spleen is not enlarged. Adrenals are normal. Kidneys appear normal. Small bowel is not dilated. Appendix is unremarkable. Colon appears normal. Uterus is present. Adnexa appear normal. There is no intraperitoneal free air or free fluid. Urinary bladder is normal. IMPRESSION: Mild calcific atherosclerosis of the aorta. No acute abnormality seen in the abdomen or pelvis. Dictated by: Dictated on workstation # [id number]
[2019-02-11] MEDS ORDERED: ACHD5005 PO (16:53)
[2019-02-11] MEDS ORDERED: ONDA4TAB11 PO (16:53)
[2019-02-11 16:57] VITALS: BP 110/86
== END 2019-02-11 17:00 | disposition home or self-care (01) ==
LOC: EDUNIT# 13:44 → ER 13:45
DX: R10.31 Right lower quadrant pain (principal); R11.0 Nausea; M53.3 Sacrococcygeal disorders, not elsewhere classified; E78.00 Pure hypercholesterolemia, unspecified; E03.9 Hypothyroidism, unspecified; Z87.448 Personal history of other diseases of urinary system; Z87.442 Personal history of urinary calculi; Z88.1 Allergy status to other antibiotic agents; Z88.0 Allergy status to penicillin; Z88.8 Allergy status to other drugs, medicaments and biological substances; Z90.89 Acquired absence of other organs
CPT/HCPCS: 36415; 74177; 80053; 81000; 83690; 84703; 85025

== ENCOUNTER 2021-11-04 07:17 | Emergency (ER) | payer SELFPAY ==
[~2021-11-04] VITALS: Ht 162.6 cm; Wt 59.0 kg
[~2021-11-04 07:17] MED LIST changes: +CYCL10TA25 PO; +ONDA4TAB11 PO
--- NOTE | 2021-11-04 07:48 | ED General ---
General Chief Complaint: COVID19 Suspect/Confirmed Stated Complaint: SOB,TX FOR BRONCHITIS Nursing Triage Note: PT AMBULATE TO ROOM 08 WITH C/O SOB, RIGHT RIB PAIN, COUGH X3 WEEKS. PT REPORTS BEING SEEN BY [facility] ON THURSDAY OR THURSDAY AND AN XRAY WAS TAKEN. PT REPORTS SHE HAS NOT HEARD BACK WITH THE RESULTS YET. PT REPORTS BEING PRESCRIBED A ZPACK WHICH SHE HAS FINISHED AND GIVEN AN INHALER ON THURSDAY OR THURSDAY. PT REPORTS BEING TOLD SHE HAS BRONCHITIS. Source of Information: Patient Exam Limitations: No Limitations (TAURUS VERA STUDENT) History of Present Illness Date Seen by Provider: Nov 04, 2021 Time Seen by Provider: 07:40 Initial Comments Patient is a 51yoF who presents with chief complaint of right-sided rib pain which has been ongoing for the last three weeks brought on by intense coughing but worsened this morning upon awakening. Patient was diagnosed with bronchitis by [facility] three weeks ago and has been treated with azithromycin as well as steroid inhalers most recently. She states that [facility] ordered a chest xray which was completed last Thursday and she has not heard results yet. Patient is still taking steroid inhaler which seems to help and she reports no cough at this time. She has mild congestion but denies N/V, diarrhea, headache, SOA and fever. She has not tried any medication at home for pain. Any kind of movement makes rib pain worse and she rates it 9/10. Pain does not radiate and is not associated with chest pain or diaphoresis. Patient said she used to smoke a pack of cigarettes per day but she hasn't smoked at all in the last 3 weeks. Timing/Duration: Getting Worse Severity: Mild Modifying Factors: improves with Movement Associated Systoms: No Chest Pain, No Cough, No Diaphoresis, No Fever/Chills, No Headaches, No Nausea/Vomiting, No Shortness of Air (TAURUS VERA STUDENT) Allergies and Home Medications Allergies Coded Allergies: meperidine (Unverified Allergy, Mild, 11/11/09) tetracycline (Unverified Allergy, Mild, 11/11/09) amoxicillin (Unverified Allergy, Unknown, PALIPITATIONS, 12/11/14) Patient Home Medication List Home Medication List Reviewed: Yes (BRITTANEY DESHPANDE MD) Hydrocodone Bit/Acetaminophen (Lortab 5 Mg Tablet) 1 Tab Tab, 1 EACH PO Q4-6HR PRN for PAIN-MODERATE Prescribed by: JILL TRIPLETT on 02/11/191652 Hydrocodone/Acetaminophen (Lortab 10-325 mg Tablet) 1 Each Tablet, 1 EACH PO 4 times a day Prescribed by: JENNIFER BABCOCK on 10/30/16 1430 Levothyroxine Sodium (Levothyroxine 88 Mcg Tab) 88 Mcg Tablet, 1 EACH PO DAILY, (Reported) Entered as Reported by: HARLEY GRIFFIN on 07/05/102003 Ondansetron (Ondansetron Odt) 4 Mg Tab.rapdis, 4 MG PO Q4H PRN for NAUSEA/VOMITING-1ST LINE Prescribed by: JILL TRIPLETT on 02/11/191652 [Cholesterol Med] , (Reported) Entered as Reported by: RAAD NG on 10/30/16 1046 Review of Systems Review of Systems Constitutional: No chills, No diaphoresis EENTM: No blurred vision, No nose congestion, No throat pain Cardiovascular: No chest pain, No edema, No palpitations Gastrointestinal: No constipation, No diarrhea; loss of appetite; No melena, No nausea, No vomiting Genitourinary: No dysuria, No frequency, No hematuria Musculoskeletal: No back pain, No muscle pain Skin: no symptoms reported Psychiatric/Neurological: No Symptoms Reported Hematologic/Lymphatic: No Symptoms Reported Immunological/Allergic: no symptoms reported (TAURUS VERA Peeky STUDENT) Past Tsnjwkw-Dzvmne-Taqjsj Hx Patient Social History Tobacco Use?: Yes Tobacco type used: Cigarettes Smoking Status: Current Everyday Smoker Smokeless Tobacco Frequency: Never a User Use of E-Cig and/or Vaping dev: No Use of E-Cig and/or Vaping Berry: Never a User Substance use?: No Alcohol Use?: No Pt feels they are or have been: No (TAURUS VERA MED STUDENT) Seasonal Allergies Seasonal Allergies: Yes (TAURUS VERA MED STUDENT) Past Medical History Surgeries: Yes (KIDNEY STONE REMOVAL, D&C) Adenoidectomy, Renal, Tonsillectomy Respiratory: No Cardiac: Yes High Cholesterol Neurological: No 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 Genitourinary: Yes Bladder Infection, Kidney Stones Gastrointestinal: No Musculoskeletal: No Endocrine: Yes Hypothyroidsim HEENT: No Cancer: No Psychosocial: No Integumentary: No Blood Disorders: No (TAURUS VERA STUDENT) Family Medical History No Pertinent Family Hx (TAURUS VERA STUDENT) Physical Exam Vital Signs Vital Signs - First Documented 11/04/21 11/04/21 07:22 09:31 Temp 35.3 Pulse 82 Resp 18 B/P (MAP) 149/110 (123) Pulse Ox 97 O2 Delivery Room Air (BRITTANEY DESHPANDE MD) Vital Signs Capillary Refill : Less Than 3 Seconds (TAURUS VERA STUDENT) Height, Weight, BMI Height: 5'4.00" Weight: 137lbs. oz. 62.332519re; 22.00 BMI Method:Stated General Appearance: No Apparent Distress, WD/WN HEENT: PERRL/EOMI, Pharynx Normal, Moist Mucous Membranes; No Tonsillar Exudate, No Tonsillar Enlargement Neck: Full Range of Motion, Normal Inspection, Non Tender, Supple Respiratory: Chest Non Tender, Lungs Clear, Normal Breath Sounds, No Respiratory Distress Cardiovascular: Regular Rate, Rhythm, No Edema, Normal Peripheral Pulses Gastrointestinal: Normal Bowel Sounds, Non Tender, Soft Back: No CVA Tenderness, No Vertebral Tenderness Extremity: Normal Capillary Refill, Normal Inspection, Non Tender, No Calf Tenderness, No Pedal Edema Neurologic/Psychiatric: Alert, Oriented x3, No Motor/Sensory Deficits, Normal Mood/Affect, creative specialist II-XII Norm as Tested Skin: Normal Color, Warm/Dry Lymphatic: No Adenopathy Comments right ribs 7-10 tender to palpation. No overlying skin changes or posterior rib pain. (TAURUS VERA STUDENT) Progress/Results/Core Measures Suspected Sepsis SIRS Temperature: Pulse: 82 Respiratory Rate: 18 Blood Pressure 149 /110 Mean: 123 (ATURUS VERA STUDENT) Results/Orders My Orders Orders - BRITTANEY DESHPANDE MD Ketorolac Injection (Toradol Injection) (11/04/21 08:15) Orphenadrine Inj (Ed Only) (Norflex Inje (11/04/21 08:15) Chest Pa/Lat (2 View) (11/04/21 08:02) (BRITTANEY DESHPANDE MD) Medications Given in ED (BRITTANEY DESHPANDE MD) Vital Signs/I&O 11/04/21 11/04/21 11/04/21 07:22 07:22 09:31 Temp 35.3 Pulse 82 84 Resp 18 16 B/P (MAP) 149/110 (123) 136/85 Pulse Ox 97 O2 Delivery Room Air Room Air Room Air (BRITTANEY DESHPANDE MD) Vital Signs/I&O Capillary Refill : Less Than 3 Seconds (TAURUS VERA MED STUDENT) Blood Pressure Mean: 123 Progress Note : Time: 09:16 Progress Note Feels a little bit better with pain medication on board. Still has some discomfort when she stands up. Patient is counseled on return precautions. Advised to take ibuprofen every 6 and follow-up with [facility]. She verbalized understanding. All questions are sought and answered. Chest x-ray was reviewed, no acute pathological findings. (BRITTANEY DESHPANDE MD) Diagnostic Imaging Diagonstic Imaging: Xray Plain Films/CT/US/NM/MRI: chest Comments [facility] [place] NAME: KINGSLEY WALSH [facility] REC#: [id number] PT STATUS: REG ER : 1970 PHYSICIAN: BRITTANEY DESHPANDE MD ADMIT DATE: 11/04/21/ER Draft Date of Exam:11/04/21 CHEST PA/LAT (2 VIEW) INDICATION: Shortness of breath and right rib pain with cough x3 weeks. EXAMINATION: Chest 11/04/2021 COMPARISONS: None with correlation made from most recent CT chest dated 05/21/2012. FINDINGS: Multiple calcified granulomata seen throughout both lungs as seen on prior CT. There are no focal infiltrates. There is no pneumothorax. No pleural effusions. Heart and pulmonary vasculature normal. IMPRESSION: 1. Evidence of old granulomatous disease. No acute cardiopulmonary process. Dictated on workstation # [id number] Dict: 11/04/21 0843 Trans: 11/04/21 0847 CV [id number] Interpreted by: HOLDEN LEIGH MD Electronically signed by: (BRITTANEY DESHPANDE MD) Departure Impression Primary Impression: Rib pain on right side Disposition: 01 HOME, SELF-CARE Condition: Stable Departure-Patient Inst. Decision time for Depature: 08:29 (BRITTANEY DESHPANDE MD) Referrals: [facility] (PCP/Family) Primary Care Physician Patient Instructions: Chest Pain That Is Not Caused by the Heart (DC) Add. Discharge Instructions: Drink plenty of fluids to stay well hydrated. Take over the counter Ibuprofen 3 tablets - which is 600mg, every 6-8 hours as needed for pain. Always take this medication with food. Take deep breaths to keep your lungs well expanded. Return to the ER for any new, emergent or concerning symptoms. be sure and follow up with your primary care provider. Verification and Attestation of Medical Student E/M Service A medical student performed and documented this service in my presence. I reviewed and verified all information documented by the medical student and made modifications to such information, when appropriate. I personally performed the physical exam and medical decision making. Brittaney Deshpande, Nov 04, 2021,08:29 (BRITTANEY DESHPANDE MD) Copy Copies To 1: JARET WHEATLEY AMANDA MED STUDENT Nov 04, 2021 07:48 BRITTANEY DESHPANDE MD Nov 04, 2021 08:31
[2021-11-04] MEDS ORDERED: KETOROLAC 30 MG/ML VIAL IM ONE (08:15)
[2021-11-04] MEDS ORDERED: ORPHENADRINE 60 MG/2 ML (NORFLEX) AMP (ED ONLY) IM ONE (08:15)
--- NOTE | 2021-11-04 08:47 | Diagnostic Imaging Report ---
INDICATION: Shortness of breath and right rib pain with cough x3 weeks. EXAMINATION: Chest 11/04/2021 COMPARISONS: None with correlation made from most recent CT chest dated 05/21/2012. FINDINGS: Multiple calcified granulomata seen throughout both lungs as seen on prior CT. There are no focal infiltrates. There is no pneumothorax. No pleural effusions. Heart and pulmonary vasculature normal. IMPRESSION: 1. Evidence of old granulomatous disease. No acute cardiopulmonary process. Dictated by: Dictated on workstation # [id number]
[2021-11-04 09:31] VITALS: BP 136/85
== END 2021-11-04 09:31 | disposition home or self-care (01) ==
LOC: EDUNIT# 07:17 → ER 07:19
DX: R07.81 Pleurodynia (principal); E03.9 Hypothyroidism, unspecified; E78.00 Pure hypercholesterolemia, unspecified; F17.210 Nicotine dependence, cigarettes, uncomplicated; Z79.890 Hormone replacement therapy; Z79.899 Other long term (current) drug therapy
CPT/HCPCS: 71046; 99284

== ENCOUNTER → 2022-01-22 | Outpatient (CLI) | payer OTHER ==
[~2022-01-22] MED LIST changes: +KETO10TA PO; +RT-ALBUTEROL SULF 2.5 MG/3 ML PRE-MIX VIAL INH ONE
== END ==
LOC: RT 10:45
PROVIDERS: ATTEND Nurse Practitioner
DX: J41.8 Mixed simple and mucopurulent chronic bronchitis (principal); E03.9 Hypothyroidism, unspecified; F17.200 Nicotine dependence, unspecified, uncomplicated
CPT/HCPCS: 94060; 94726; 94729

== ENCOUNTER 2022-01-23 18:57 | Emergency (ER) | payer SELFPAY ==
[~2022-01-23] VITALS: Ht 162.5 cm; Wt 66.2 kg
[~2022-01-23 18:57] MED LIST changes: -KETO10TA PO; -RT-ALBUTEROL SULF 2.5 MG/3 ML PRE-MIX VIAL INH ONE
[2022-01-23] MEDS ORDERED: ONDANSETRON 4 MG/2 ML (SDV) Z0FRAN IVP ONE (19:30)
[2022-01-23] MEDS ORDERED: KETOROLAC 30 MG/ML VIAL IVP ONE (19:30)
[2022-01-23] MEDS ORDERED: NS IV 1000 ML 1,000 ML IV SCH (19:30)
--- NOTE | 2022-01-23 19:32 | ED Headache ---
General Stated Complaint: SEVERE OLSEN Source: patient Exam Limitations: no limitations History of Present Illness Date Seen by Provider: Jan 23, 2022 Time Seen by Provider: 19:16 Initial Comments The patient presents to the ER by private conveyance from [facility] with chief complaint of intermittent, severe worst headache of her life starting in her face frontal bones and radiating to her bilateral parietal scalp and then sitting in her occipital scalp. Last time she took ibuprofen was 3 tablets this morning. Is been going on since last Thursday. He comes with waves of nausea but no vomiting. She thought maybe she was going to have some kind of a gut bug but did not end up having any diarrhea, abdominal pain or fever. She has had some rushes of feeling flushed/hot. No chills. She does not have a history of migraines or other headache syndromes. She does smoke but does not drink or use recreational drugs. She does not been around anybody sick and works from home. She was seen in the clinic today for her headaches and they were concerned with the history and sent her to the ER. Allergies and Home Medications Allergies Coded Allergies: meperidine (Unverified Allergy, Mild, 11/11/09) tetracycline (Unverified Allergy, Mild, 11/11/09) amoxicillin (Unverified Allergy, Unknown, PALIPITATIONS, 12/11/14) Patient Home Medication List Home Medication List Reviewed: Yes Hydrocodone Bit/Acetaminophen (Lortab 5 Mg Tablet) 1 Tab Tab, 1 EACH PO Q4-6HR PRN for PAIN-MODERATE Prescribed by: JILL TRIPLETT on 02/11/19 1653 Hydrocodone/Acetaminophen (Lortab 10-325 mg Tablet) 1 Each Tablet, 1 EACH PO 4 times a day Prescribed by: JENNIFER BABCOCK on 10/30/16 1430 Ketorolac Tromethamine (Ketorolac Tromethamine) 10 Mg Tablet, 10 MG PO Q8H PRN for HEADACHE Prescribed by: ELIZABETH STEPHENS on 01/23/222039 Levothyroxine Sodium (Levothyroxine 88 Mcg Tab) 88 Mcg Tablet, 1 EACH PO DAILY, (Reported) Entered as Reported by: HARLEY GRIFFIN on 07/05/102003 Ondansetron (Ondansetron Odt) 4 Mg Tab.rapdis, 4 MG PO Q4H PRN for NAUSEA/VOMITING-1ST LINE Prescribed by: JILL TRIPLETT on 02/11/19 1653 Ondansetron (Ondansetron Odt) 4 Mg Tab.rapdis, 4 MG PO Q6H PRN for NAUSEA/VOMITING Prescribed by: ELIZABETH STEPHENS on 01/23/222039 [Cholesterol Med] , (Reported) Entered as Reported by: RAAD NG on 10/30/16 1046 Review of Systems Review of Systems Constitutional: No chills, No diaphoresis Eyes: Denies Blindness, Denies Blurred Vision Ears, Nose, Mouth, Throat: denies ear pain, denies mouth pain Respiratory: No cough, No hemoptysis Cardiovascular: No chest pain, No palpitations Gastrointestinal: No abdominal pain, No constipation; nausea; No vomiting Genitourinary: No discharge, No dysuria Musculoskeletal: No back pain, No joint pain All Other Systems Reviewed Negative Unless Noted: Yes Past Vskmlub-Uyyzwc-Utnizi Hx Patient Social History Tobacco Use?: Yes Tobacco type used: Cigarettes Smoking Status: Current Everyday Smoker Use of E-Cig and/or Vaping dev: No Substance use?: No Seasonal Allergies Seasonal Allergies: Yes Past Medical History Surgeries: Yes (KIDNEY STONE REMOVAL, D&C) Adenoidectomy, Renal, Tonsillectomy Respiratory: No Cardiac: Yes High Cholesterol Neurological: No Reproductive Disorders: No [employer] History: Menopausal Genitourinary: Yes Bladder Infection, Kidney Stones Gastrointestinal: No Musculoskeletal: No Endocrine: Yes Hypothyroidsim HEENT: No Cancer: No Psychosocial: No Integumentary: No Blood Disorders: No Family Medical History No Pertinent Family Hx Physical Exam Vital Signs Vital Signs - First Documented 01/23/22 19:17 Temp 37.1 Pulse 81 Resp 20 B/P (MAP) 137/98 (111) Pulse Ox 96 Capillary Refill : Height, Weight, BMI Height: 5'4.00" Weight: 137lbs. oz. 62.447827sa; 22.00 BMI Method:Stated General Appearance: WD/WN, mild distress HEENT: PERRL/EOMI, normal ENT inspection, TMs normal (Clear effusion left TM, bilateral canals unremarkable), pharynx normal (Faint red macules with a little injection seen speckled slightly over the retropharynx.) Neck: full range of motion, supple, normal inspection Cardiovascular: normal peripheral pulses, regular rate, rhythm, no edema Respiratory: lungs clear, normal breath sounds, no respiratory distress, no accessory muscle use Extremities: non-tender, normal capillary refill Psychiatric: alert, oriented x 3 Crainal Nerves: normal hearing, normal speech, PERRL Motor/Sensory: no motor deficit, no sensory deficit Skin: normal color, warm/dry Progress/Results/Core Measures Results/Orders Lab Results Laboratory Tests Test 01/23/22 19:27 01/23/22 19:38 Range/Units White Blood Count 8.9 4.3-11.0 10^3/uL Red Blood Count 4.97 3.80-5.11 10^6/uL Hemoglobin 14.9 11.5-16.0 g/dL Hematocrit 45 35-52 % Mean Corpuscular Volume 90 80-99 fL Mean Corpuscular Hemoglobin 30 25-34 pg Mean Corpuscular Hemoglobin Concent 33 32-36 g/dL Red Cell Distribution Width 14.4 10.0-14.5 % Platelet Count 258 130-400 10^3/uL Mean Platelet Volume 9.8 9.0-12.2 fL Immature Granulocyte % (Auto) 0 % Neutrophils (%) (Auto) 56 42-75 % Lymphocytes (%) (Auto) 32 12-44 % Monocytes (%) (Auto) 10 0-12 % Eosinophils (%) (Auto) 2 0-10 % Basophils (%) (Auto) 0 0-10 % Neutrophils # (Auto) 5.0 1.8-7.8 10^3/uL Lymphocytes # (Auto) 2.8 1.0-4.0 10^3/uL Monocytes # (Auto) 0.9 0.0-1.0 10^3/uL Eosinophils # (Auto) 0.2 0.0-0.3 10^3/uL Basophils # (Auto) 0.0 0.0-0.1 10^3/uL Immature Granulocyte # (Auto) 0.0 0.0-0.1 10^3/uL Sodium Level 140 135-145 MMOL/L Potassium Level 4.3 3.6-5.0 MMOL/L Chloride Level 102 98-107 MMOL/L Carbon Dioxide Level 23 21-32 MMOL/L Anion Gap 15 H 5-14 MMOL/L Blood Urea Nitrogen 19 H 7-18 MG/DL Creatinine 0.82 0.60-1.30 MG/DL Estimat Glomerular Filtration Rate 87 BUN/Creatinine Ratio 23 Glucose Level 101 70-105 MG/DL Calcium Level 10.1 8.5-10.1 MG/DL Corrected Calcium 9.8 8.5-10.1 MG/DL Total Bilirubin 1.0 0.1-1.0 MG/DL Aspartate Amino Transf (AST/SGOT) 25 5-34 U/L Alanine Aminotransferase (ALT/SGPT) 42 0-55 U/L Alkaline Phosphatase 114 40-136 U/L C-Reactive Protein High Sensitivity 0.41 0.00-0.50 MG/DL Total Protein 7.7 6.4-8.2 GM/DL Albumin 4.4 3.2-4.5 GM/DL Influenza Type A (RT-PCR) Not Detected Not Detecte Influenza Type B (RT-PCR) Not Detected Not Detecte SARS-CoV-2 RNA (RT-PCR) Not Detected Not Detecte My Orders Orders - ELIZABETH STEPHENS Ed Iv/Invasive Line Start (01/23/22 19:24) Ns Iv 1000 Ml (Sodium Chloride 0.9%) (01/23/22 19:30) Ketorolac Injection (Toradol Injection) (01/23/22 19:30) Ondansetron Injection (Zofran Injectio (01/23/22 19:30) Cbc With Automated Diff (01/23/22 19:24) Comprehensive Metabolic Panel (01/23/22 19:24) Hs C Reactive Protein (01/23/22 19:24) Influenza A And B By Pcr (01/23/22 19:24) Covid 19 Inhouse Test (01/23/22 19:24) Ct Head Wo (01/23/22 19:24) Medications Given in ED Current Medications Medications Dose Ordered Sig/Rickie Route Start Time Stop Time Status Last Admin Dose Admin Ketorolac Tromethamine 30 mg ONCE ONCE IVP 01/23/22 19:30 01/23/22 19:31 DC 01/23/22 19:33 30 MG Ondansetron HCl 4 mg ONCE ONCE IVP 01/23/22 19:30 01/23/22 19:31 DC 01/23/22 19:33 4 MG Vital Signs/I&O 01/23/22 19:17 Temp 37.1 Pulse 81 Resp 20 B/P (MAP) 137/98 (111) Pulse Ox 96 Progress Progress Note #1: Time: 19:33 Progress Note Well-appearing person with some evidence of retropharyngeal erythema may be indicative of viral infection and headaches. Could be some concern for viral meningitis however her vitals are normal her symptoms are fairly mild. We will do a set of visual acuity screening, labs and a CT of her head. If she was having a subarachnoid hemorrhage since Thursday we should be able to see blood by now on , nearly 6 days later. She is not having any neurologic s ymptoms with her headache. She is not having a fever presently. We will give her some Zofran, fluids and Toradol that did not if this controls her symptoms and her labs are unremarkable we will not go any further. Otherwise will entertain the notion of LP. Progress Note #2: Time: 20:37 Progress Note After Toradol Zofran and a liter of fluids the patient's symptoms are completely gone. She is feeling much better. Her labs were reviewed with her. A CT shou ld rule out any subarachnoid hemorrhage 6 days afterwards especially considering the history does not match. Headache has been intermittent not constant. Diagnostic Imaging Diagonstic Imaging: CT Plain Films/CT/US/NM/MRI: head Comments [facility], [place] NAME: KINGSLEY WALSH [facility] REC#: [id number] PT STATUS: REG ER : 1970 PHYSICIAN: ELIZABETH STEPHENS MD ADMIT DATE: 01/23/22/ER Signed Date of Exam:01/23/22 CT HEAD WO PROCEDURE: CT head without contrast. TECHNIQUE: Multiple contiguous axial images were obtained through the brain without the use of intravenous contrast. Auto Exposure Controls were utilized during the CT exam to meet ALARA standards for radiation dose reduction. INDICATION: Severe headache. FINDINGS: Ventricles are normal in size, shape and position. There is no midline shift or mass effect. There is no hemorrhage or evidence of acute ischemia. No extra-axial fluid collection or mass is seen. The bony calvarium is normal. The mastoids and paranasal sinuses are clear. IMPRESSION: Negative CT head. Dictated by: Dictated on workstation # [id number] Dict: 01/23/222034 Trans: 01/23/222048 [facility] [id number] Interpreted by: MARISA CALLAHAN Electronically signed by: MARISA CALLAHAN 01/23/222048 Reviewed: Reviewed by Me Departure Impression Primary Impression: Viral upper respiratory tract infection Additional Impression: Headache Qualified Codes: R51.9 - Headache, unspecified Disposition: 01 HOME, SELF-CARE Condition: Stable Departure-Patient Inst. Decision time for Depature: 21:10 Referrals: [facility] [place] (PCP/Family) Primary Care Physician Patient Instructions: Headache, Adult (DC), Viral Syndrome (DC) Add. Discharge Instructions: You appear to have a viral upper respiratory syndrome (like a cold) and that may be what is driving your headache. I suspect your headache will go away within a week or so at the most. If you develop strong fevers above 102.5, intractable vomiting or intractable p ain then return to the nearest ER. Tylenol 1000 mg every 8 hours as needed for pain or fever. Instead of ibuprofen or naproxen you may use the prescription ketorolac 1 tablet every 8 hours with lots of fluids to drink. Ondansetron/Zofran 1 tablet every 6 hours under the tongue as needed for nausea or vomiting. Get plenty of rest. If you are not seeing improvement in 1 week then follow-up with primary care for reevaluation. Scripts Ondansetron (Ondansetron Odt) 4 Mg Tab.rapdis 4 MG PO Q6H PRN for NAUSEA/VOMITING, #10 TAB 0 Refills Prov: ELIZABETH STEPHENS 01/23/22 Ketorolac Tromethamine (Ketorolac Tromethamine) 10 Mg Tablet 10 MG PO Q8H PRN for HEADACHE for 3 Days, #6 TAB 0 Refills Prov: ELIZABETH STEPHENS 01/23/22 Work/School Note: Work Release Form Date Seen in the Emergency Department: Jan 23, 2022 Return to Work: Jan 27, 2022 Restrictions: No Restrictions ELIZABETH STEPHENS Jan 23, 2022 19:32
[2022-01-23 19:35] LABS: BASOPHILS % (AUTO) 0 % (0-10); EOSINOPHILS # (AUTO) 0.2 10^3/uL (0.0-0.3); EOSINOPHILS % (AUTO) 2 % (0-10); HEMATOCRIT 45 % (35-52); HEMOGLOBIN 14.9 g/dL (11.5-16.0); LYMPHOCYTES # (AUTO) 2.8 10^3/uL (1.0-4.0); LYMPHOCYTES % (AUTO) 32 % (12-44); MEAN CORPUSCULAR HEMOGLOBIN 30 pg (25-34); MEAN CORPUSCULAR HGB CONC 33 g/dL (32-36); MEAN CORPUSCULAR VOLUME 90 fL (80-99); MEAN PLATELET VOLUME 9.8 fL (9.0-12.2); MONOCYTES # (AUTO) 0.9 10^3/uL (0.0-1.0); MONOCYTES % (AUTO) 10 % (0-12); NEUTROPHILS % (AUTO) 56 % (42-75); PLATELET COUNT 258 10^3/uL (130-400); WHITE BLOOD COUNT 8.9 10^3/uL (4.3-11.0)
[2022-01-23 19:44] LABS: ALBUMIN 4.4 GM/DL (3.2-4.5); POTASSIUM 4.3 MMOL/L (3.6-5.0)
[2022-01-23 19:45] LABS: CALCIUM 10.1 MG/DL (8.5-10.1)
[2022-01-23 19:47] LABS: TOTAL PROTEIN 7.7 GM/DL (6.4-8.2)
[2022-01-23 19:50] LABS: CREATININE SERUM 0.82 MG/DL (0.60-1.30)
--- NOTE | 2022-01-23 20:38 | Diagnostic Imaging Report ---
PROCEDURE: CT head without contrast. TECHNIQUE: Multiple contiguous axial images were obtained through the brain without the use of intravenous contrast. Auto Exposure Controls were utilized during the CT exam to meet ALARA standards for radiation dose reduction. INDICATION: Severe headache. FINDINGS: Ventricles are normal in size, shape and position. There is no midline shift or mass effect. There is no hemorrhage or evidence of acute ischemia. No extra-axial fluid collection or mass is seen. The bony calvarium is normal. The mastoids and paranasal sinuses are clear. IMPRESSION: Negative CT head. Dictated by: Dictated on workstation # [id number]
[2022-01-23] MEDS ORDERED: KETO10TA PO (20:40)
[2022-01-23] MEDS ORDERED: ONDA4TAB11 PO (20:40)
[2022-01-23 22:01] VITALS: BP 142/92
== END 2022-01-23 21:48 | disposition home or self-care (01) ==
LOC: EDUNIT# 18:57 → ER 18:59
DX: J06.9 Acute upper respiratory infection, unspecified (principal); F17.210 Nicotine dependence, cigarettes, uncomplicated; Z20.822 Contact with and (suspected) exposure to COVID-19
CPT/HCPCS: 36415; 70450; 80053; 85025; 86141; 87636